=== PATIENT | female | born 1970 | race Hispanic/Latino ===

== ENCOUNTER 2017-11-09 16:03 | Inpatient (IN) | payer MEDICAID ==
[2017-11-09 16:03] VITALS: BMI 24.1
--- NOTE | 2017-11-09 16:20 | C.PDOC ---
History Of Present Illness 47 y/o female, w/PMhx of myasthenia gravis, s/p thymectomy, presents to the ER complaining of worsening SOB. Patient states that she had an IVIG infusion today and she has been sent to the ER by her PMD. Denies having fever, chest pain. Time Seen by Provider: 11/09/17 16:17 Chief Complaint (Nursing): Shortness Of Breath History Per: Patient History/Exam Limitations: no limitations Onset/Duration Of Symptoms: Days Current Symptoms Are (Timing): Still Present Severity: Moderate Past Medical History Reviewed: Historical Data, Nursing Documentation, Vital Signs Vital Signs: Last Vital Signs Temp 98.2 F 11/12/17 04:00 Pulse 65 11/12/17 07:59 Resp 22 11/12/17 07:59 BP 141/84 11/12/17 07:59 Pulse Ox 96 11/12/17 06:58 - Medical History PMH: Anxiety, Asthma, Depression Denies: Chronic Kidney Disease Surgical History: Appendectomy Denies: Pacemaker - [facility] Procedures FALLOP TUBE REPAIR NEC (08/24/03) FALLOPIAN TUBE INSUFFLAT (08/24/03) LAPAROSCOP LYSIS-PERITONEAL ADHES (08/24/03) Family History: States: No Known Family Hx - Social History Hx Alcohol Use: No Hx Substance Use: No - Immunization History Hx Tetanus Toxoid Vaccination: No Hx Influenza Vaccination: No Hx Pneumococcal Vaccination: No Review Of Systems Except As Marked, All Systems Reviewed And Found Negative. Constitutional: Negative for: Fever, Chills Respiratory: Positive for: Shortness of Breath Physical Exam - Physical Exam Appears: Non-toxic, No Acute Distress Skin: Normal Color, Warm, Dry Head: Atraumatic, Normacephalic Eye(s): bilateral: Normal Inspection Nose: Normal Oral Mucosa: Moist Neck: Supple Chest: Symmetrical Cardiovascular: Rhythm Regular Respiratory: Rales (mild rales at right base), No Rhonchi, No Wheezing, Other ( tachypnic, 6-8 word sentences) Gastrointestinal/Abdominal: Normal Exam, Soft, No Tenderness Neurological/Psych: Oriented x3 ED Course And Treatment - Laboratory Results Result Diagrams: 11/12/17 06:27 11/12/17 06:28 ECG: Interpreted By Me, Viewed By Me ECG Rhythm: Sinus Tachycardia Rate From EC O2 Sat by Pulse Oximetry: 96 (RA) Pulse Ox Interpretation: Normal Critical Care Time - Critical Care Note Total Time (in mins): 45 Documented critical care: time excludes all time spent performing seperately billable procedures. Medical Decision Making Medical Decision Making: suspect mg criis r/o undelrying etology. Plan: --Labs --ECG --CXR Updates: upona rrival, pt appears to be in mg crisis, with ptyosis, visible muscle weakness. fvc measured 0.7. respiratory unable to get nif bedside. pt intubated for impending resp failure. icu jessa bedside. antibiotics ordered, dr christianson accepts. dr gregory updated. Patient has been intubated. after etomidate , pt needed paralytic as orophaynx tense, zo given. Disposition - Disposition Disposition: HOSPITALIZED Disposition Time: 03:00 Condition: CRITICAL - Clinical Impression Clinical Impression: Myasthenia gravis in crisis, Respiratory distress - Scribe Statement The provider has reviewed the documentation as recorded by the Casey Lyle Provider Attestation: All medical record entries made by the Fernandaibmary were at my direction and personally dictated by me. I have reviewed the chart and agree that the record accurately reflects my personal performance of the history, physical exam, medical decision making, and the department course for this patient. I have also personally directed, reviewed, and agree with the discharge instructions and disposition.
[2017-11-09 16:29] LABS: BASO % 0.1 % (0.0-2.0); EOS % 0.6 % (0.0-4.0); HEMOGLOBIN 12.7 g/dL (11.0-16.0); LYMPH # 0.3 K/uL (1.0-4.3); LYMPH % 3.2 % (20.0-40.0); MEAN CELL VOLUME 88.6 fL (81.0-99.0); MEAN CORPUSCULAR HEMOGLOBIN 29.6 pg (27.0-31.0); MEAN CORPUSCULAR HGB CONC 33.5 g/dL (33.0-37.0); MEAN PLATELET VOLUME 6.7 fL (7.2-11.7); MONO # 0.1 K/uL (0.0-0.8); MONO % 0.8 % (0.0-10.0); NEUT # 7.4 K/uL (1.8-7.0); NEUT % 95.3 % (50.0-75.0); PLATELET COUNT 423 K/uL (130-400); RED CELL DISTRIBUTION WIDTH 13.2 % (11.5-14.5); WHITE BLOOD COUNT 7.8 K/uL (4.8-10.8)
[2017-11-09 16:37] LABS: INR 1.1; PROTHROMBIN TIME 12.3 SECONDS (9.7-12.2)
[2017-11-09 16:40] LABS: ALB/GLOB RATIO 0.7 (1.0-2.1); ALBUMIN 3.9 g/dL (3.5-5.0); ALT/SGPT 8 U/L (9-52); AST/SGOT 26 U/L (14-36); BLOOD UREA NITROGEN 16 mg/dL (7-17); CALCIUM 8.8 mg/dl (8.6-10.4); GFR AFRICAN-AMERICAN > 60; GFR NON-AFRICAN AMERICAN > 60
[2017-11-09 16:52] LABS: B-TYPE NATRIURETIC PEPTIDE 49.8 pg/mL (0-450)
[2017-11-09 17:03] LABS: BANDS 7 % (0-2); EOSINOPHIL 1 % (0-4); LYMPHOCYTE 1 % (20-40); MONOCYTE 2 % (0-10); NEUTROPHIL 89 % (50-75); TOTAL CELLS COUNTED 100
[2017-11-09] MEDS ORDERED: Propofol 10 mg/ml 1,000 MG/100 ML VIAL IV PRN (17:03)
[2017-11-09 17:04] LABS: PLATELET ESTIMATE SLIGHTLY INCREASED (NORMAL)
[2017-11-09] MEDS ORDERED: Propofol 10 mg/ml 1,000 MG/100 ML VIAL ONE (17:06)
[2017-11-09 17:08] LABS: HYPOCHROMIC SLIGHT; MICROCYTOSIS SLIGHT
[2017-11-09] MEDS ORDERED: Vancomycin 1 gm/NS 200 ml 1 GM/200 ML BAG IVPB STA ×2 (17:37→21:00)
[2017-11-09] MEDS ORDERED: metroNIDAZOLE IV 500 mg/100 ml 500 MG/100 ML BAG IVPB STA (17:37)
[2017-11-09] MEDS ORDERED: Ciprofloxacin 400mg/200ml D5W 400 MG/200 ML BAG IVPB STA (17:37)
[2017-11-09 17:45] LABS: ABG ALLEN TEST POS; ARTERIAL BLOOD GAS HCO3 23.7 mmol/L (21-28); ARTERIAL BLOOD GAS PCO2 45 mm/Hg (35-45); ARTERIAL BLOOD GAS PH 7.34 (7.35-7.45); ARTERIAL BLOOD GAS PO2 306 mm/Hg (80-100); ARTERIAL BLOOD GAS TCO2 25.7 mmol/L (22-28)
[2017-11-09 18:13] LABS: SQUAMOUS EPITHIAL < 1 /hpf (0-5); URINE BACTERIA OCC (<OCC); URINE BILIRUBIN NEGATIVE (NEGATIVE); URINE BLOOD 1+ (NEGATIVE); URINE CLARITY Clear (Clear); URINE COLOR Yellow (YELLOW); URINE GLUCOSE (UA) NORMAL (Normal); URINE HYALINE CAST 0-2 /lpf (0-2); URINE LEUKOCYTE ESTERASE NEG Leu/uL (Negative); URINE PROTEIN 1+ mg/dL (NEGATIVE); URINE UROBILINOGEN NORMAL mg/dL (0.2-1.0)
--- NOTE | 2017-11-09 18:14 | CP.PCM.CON ---
<Shabbir Ryan - Last Filed: 11/09/17 17:54> History of Present Illness - History of Present Illness History of Present Illness: Critical Care Consult Note for Dr. Crespo This is a 47 year old female with PMHx Asthma, Thymoma s/p resection 6 weeks ago , myasthenia gravis (started after thymoma resection) who presented to the hospital sent in by Dr. Branch for shortness of breath. Patient had received dose of IVIG, and patient was feeling increasingly weak and short of breath. Per review of EMR, she has had recurrent pleural effusions since her surgery. She has had 3 thoracentesis procedures thus far. Patient seen in the ED in respiratory distress with tachypnea and labored breathing. Patient was intubated in the ED and sedated on Diprivan. PMHx: Asthma, Thymoma s/p resection 6 weeks ago, myasthenia gravis (started after thymoma resection) PSHx: Thymoma resection 6 weeks ago, thoracentesis x3 since then Allergies: Multiple as per EMR Review of Systems - Review of Systems Systems not reviewed;Unavailable: Acuity of Condition, Respiratory Distress Past Patient History - Infectious Disease Hx of Infectious Diseases: None - Tetanus Immunizations Tetanus Immunization: Unknown - Past Social History Smoking Status: Never Smoked - CARDIAC Hx Pacemaker: No - PULMONARY Hx Asthma: Yes - NEUROLOGICAL Hx Neurological Disorder: No - HEENT Hx HEENT Problems: No - RENAL Hx Chronic Kidney Disease: No - ENDOCRINE/METABOLIC Hx Endocrine Disorders: No - HEMATOLOGICAL/ONCOLOGICAL Hx Blood Disorders: No - INTEGUMENTARY Hx Dermatological Problems: No - MUSCULOSKELETAL/RHEUMATOLOGICAL Hx Musculoskeletal Disorders: No Hx Myasthenia Gravis: Yes - GASTROINTESTINAL Hx Gastrointestinal Disorders: No - GENITOURINARY/GYNECOLOGICAL Hx Genitourinary Disorders: No - PSYCHIATRIC Hx Anxiety: Yes Hx Depression: Yes Hx Substance Use: No - SURGICAL HISTORY Hx Appendectomy: Yes - ANESTHESIA Hx Anesthesia: Yes Hx Anesthesia Reactions: Yes (TROUBLE WAKING) Hx Malignant Hyperthermia: No Meds Allergies/Adverse Reactions: Allergies Allergy/AdvReac Type Severity Reaction Status Date / Time cephalexin [From Keflex] Allergy Severe RASH Verified 11/01/17 20:57 codeine Allergy Severe RASH/SOB Verified 11/01/17 20:57 Iodine and Iodide Containing Allergy Severe ANAPHYLAXIS Verified 11/01/17 20:57 Produc latex Allergy Severe ANAPHYLAXIS Verified 11/01/17 20:57 peanut Allergy Severe ANAPHYLAXIS Verified 11/01/17 20:57 Penicillins Allergy Severe RASH/SOB Verified 11/01/17 20:57 shellfish derived Allergy ANAPHYLAXIS Verified 11/01/17 20:57 - Medications Medications: Current Medications Heparin Sodium (Porcine) (Heparin) 5,000 units SC Q12H D[facility] Propofol (Diprivan) 1,000 mg in 100 mls @ 4.8 mls/hr IV .[id number] PRN; Protocol ; 10 MCG/KG/MIN PRN Reason: TITRATE PER MD ORDER Last Admin: 11/09/17 17:10 Dose: 4.8 mls/hr Ciprofloxacin (Cipro 400mg/200ml Dsw) 400 mg in 200 mls @ 133 mls/hr IVPB STAT STA PRN Reason: Protocol Stop: 11/09/17 19:07 Metronidazole (Flagyl) 500 mg in 100 mls @ 100 mls/hr IVPB STAT STA PRN Reason: Protocol Stop: 11/09/17 18:36 Vancomycin/Sodium Chloride (Vancomycin 1 Gm/Ns 200 Ml) 1 gm in 200 mls @ 133 mls/hr IVPB STAT STA PRN Reason: Protocol Stop: 11/09/17 19:07 Methylprednisolone (Solu-Medrol) 125 mg IV Q8H DIONICIO Last Admin: 11/09/17 17:17 Dose: 125 mg Pantoprazole Sodium (Protonix Inj) 40 mg IVP DAILY [facility] Pyridostigmine [place] (Mestinon Tab) 60 mg PO Q8H DIONICIO Last Admin: 11/09/17 17:14 Dose: Not Given Physical Exam - Constitutional Appears: In Acute Distress - Head Exam Head Exam: ATRAUMATIC, NORMOCEPHALIC - Eye Exam Eye Exam: EOMI, PERRL - ENT Exam ENT Exam: Mucous Membranes Moist Additional comments: ETT in place - Respiratory Exam Respiratory Exam: Rales. absent: Rhonchi, Wheezes Additional comments: Now vented - Cardiovascular Exam Cardiovascular Exam: Tachycardia, +S1, +S2 - GI/Abdominal Exam GI & Abdominal Exam: Normal Bowel Sounds, Soft. absent: Distended, Tenderness - Extremities Exam Extremities exam: Negative for: pedal edema - Neurological Exam Additional comments: Sedated on diprivan - Skin Skin Exam: Dry, Warm Results - Vital Signs Recent Vital Signs: Last Vital Signs Temp 98.6 F 11/09/17 16:18 Pulse 127 H 11/09/17 16:52 Resp 38 H 11/09/17 16:52 BP 136/84 11/09/17 16:52 Pulse Ox 96 11/09/17 17:45 - Labs Result Diagrams: 11/09/17 16:25 11/09/17 16:25 Labs: Laboratory Results - last 24 hr 11/09/17 11/09/17 11/09/17 16:25 16:25 16:25 WBC 7.8 RBC 4.30 Hgb 12.7 Hct 38.1 MCV 88.6 MCH 29.6 MCHC 33.5 RDW 13.2 Plt Count 423 H MPV 6.7 L Neut % (Auto) 95.3 H Lymph % (Auto) 3.2 L [place] % (Auto) 0.8 Eos % (Auto) 0.6 Baso % (Auto) 0.1 Neut # (Auto) 7.4 H Lymph # (Auto) 0.3 L [place] # (Auto) 0.1 Eos # (Auto) 0.0 Baso # (Auto) 0.0 Neutrophils % (Manual) 89 H Band Neutrophils % 7 H Lymphocytes % (Manual) 1 L Monocytes % (Manual) 2 Eosinophils % (Manual) 1 Platelet Estimate Slightly increased H Hypochromasia (manual) Slight Microcytosis (manual) Slight PT 12.3 H INR 1.1 APTT 27 Puncture Site pCO2 pO2 HCO3 ABG pH ABG Total CO2 ABG O2 Saturation ABG Base Excess [place] Test ABG Potassium A-a O2 Difference Respiratory Index Glucose Lactate Vent Mode Mechanical Rate FiO2 Tidal Volume PEEP Sodium 141 Potassium 3.5 L Chloride 106 Carbon Dioxide 23 Anion Gap 16 BUN 16 Creatinine 0.7 Est GFR ( Amer) > 60 Est GFR (Non-Af Amer) > 60 Random Glucose 118 H Calcium 8.8 Total Bilirubin 1.1 AST 26 ALT 8 L Alkaline Phosphatase 65 Troponin I < 0.0120 NT-Pro-B Natriuret Pep 49.8 Total Protein 9.8 H Albumin 3.9 Globulin 5.8 H Albumin/Globulin Ratio 0.7 L Arterial Blood Potassium 11/09/17 17:40 WBC RBC Hgb Hct MCV MCH MCHC RDW Plt Count MPV Neut % (Auto) Lymph % (Auto) [place] % (Auto) Eos % (Auto) Baso % (Auto) Neut # (Auto) Lymph # (Auto) [place] # (Auto) Eos # (Auto) Baso # (Auto) Neutrophils % (Manual) Band Neutrophils % Lymphocytes % (Manual) Monocytes % (Manual) Eosinophils % (Manual) Platelet Estimate Hypochromasia (manual) Microcytosis (manual) PT INR APTT Puncture Site Rra pCO2 45 pO2 306 H HCO3 23.7 ABG pH 7.34 L ABG Total CO2 25.7 ABG O2 Saturation 100.0 H ABG Base Excess -1.7 Gianni Test Pos ABG Potassium 3.0 L A-a O2 Difference 351.0 Respiratory Index 1.1 Glucose 133 H Lactate 2.0 Vent Mode Prvc Mechanical Rate 16 FiO2 100.0 Tidal Volume 450 PEEP 5 Sodium 138.0 Potassium Chloride 108.0 H Carbon Dioxide Anion Gap BUN Creatinine Est GFR ( Amer) Est GFR (Non-Af Amer) Random Glucose Calcium Total Bilirubin AST ALT Alkaline Phosphatase Troponin I NT-Pro-B Natriuret Pep Total Protein Albumin Globulin Albumin/Globulin Ratio Arterial Blood Potassium 3.0 L Assessment & Plan - Assessment and Plan (Free Text) Assessment: This is a 47 year old female with PMHx Asthma, Thymoma s/p resection 6 weeks ago , myasthenia gravis (started after thymoma resection) who presented to the hospital sent in by Dr. Branch for shortness of breath. Patient diagnosed to be in myasthenia crisis and was subsequently intubated. In the ICU, she had some seizure-like activity. She was given a bolus of Diprivan and 2 mg of Ativan which resolved this. Neuro Assessment: Myasthenia Crisis Intubated and sedated on diprivan Already received IVIG today in the office Solumedrol 125 mg IV Q8H Pyridostigmine 60 mg PO Q8H Patient may need plasmapheresis Cardio No active issues Pulm Assessment: Hx of Asthma, Recurrent pleural effusions Albuterol 1.25 mg Nebulizer Q6H DIONICIO GI Protonix 40 mg IV daily Infectious Disease Given Cipro, Flagyl, and Vancomycin in the ED Prophylaxis Heparin SC Q12H Protonix 40 mg IV daily Discussed with Dr. Crespo <Abdifatah Crespo - Last Filed: 11/09/17 18:56> Meds - Medications Medications: Current Medications Albuterol Sulfate (Albuterol 0.042% Inhal [place] (1.25mg/3ml) Ud) 1.25 mg INH RQ6 DIONICIO Heparin Sodium (Porcine) (Heparin) 5,000 units SC Q12H DION[facility] Propofol (Diprivan) 1,000 mg in 100 mls @ 4.8 mls/hr IV .[id number] PRN; Protocol ; 10 MCG/KG/MIN PRN Reason: TITRATE PER MD ORDER Last Admin: 11/09/17 17:10 Dose: 4.8 mls/hr Ciprofloxacin (Cipro 400mg/200ml Dsw) 400 mg in 200 mls @ 133 mls/hr IVPB STAT STA PRN Reason: Protocol Stop: 11/09/17 19:07 Vancomycin/Sodium Chloride (Vancomycin 1 Gm/Ns 200 Ml) 1 gm in 200 mls @ 133 mls/hr IVPB STAT STA PRN Reason: Protocol Stop: 11/09/17 19:07 Methylprednisolone (Solu-Medrol) 125 mg IV Q8H [facility] Last Admin: 11/09/17 17:17 Dose: 125 mg Pantoprazole Sodium (Protonix Inj) 40 mg IVP DAILY [facility] Pyridostigmine [place] (Mestinon Tab) 60 mg PO Q8H [facility] Last Admin: 11/09/17 17:14 Dose: Not Given Results - Vital Signs Recent Vital Signs: Last Vital Signs Temp 98.6 F 11/09/17 16:18 Pulse 118 H 11/09/17 17:49 Resp 16 11/09/17 17:49 BP 158/96 H 11/09/17 17:49 Pulse Ox 96 11/09/17 18:24 - Labs Result Diagrams: 11/09/17 16:25 11/09/17 16:25 Labs: Laboratory Results - last 24 hr 11/09/17 11/09/17 11/09/17 16:25 16:25 16:25 WBC 7.8 RBC 4.30 Hgb 12.7 Hct 38.1 MCV 88.6 MCH 29.6 MCHC 33.5 RDW 13.2 Plt Count 423 H MPV 6.7 L Neut % (Auto) 95.3 H Lymph % (Auto) 3.2 L [place] % (Auto) 0.8 Eos % (Auto) 0.6 Baso % (Auto) 0.1 Neut # (Auto) 7.4 H Lymph # (Auto) 0.3 L [place] # (Auto) 0.1 Eos # (Auto) 0.0 Baso # (Auto) 0.0 Neutrophils % (Manual) 89 H Band Neutrophils % 7 H Lymphocytes % (Manual) 1 L Monocytes % (Manual) 2 Eosinophils % (Manual) 1 Platelet Estimate Slightly increased H Hypochromasia (manual) Slight Microcytosis (manual) Slight PT 12.3 H INR 1.1 APTT 27 Puncture Site pCO2 pO2 HCO3 ABG pH ABG Total CO2 ABG O2 Saturation ABG Base Excess Gianni Test ABG Potassium A-a O2 Difference Respiratory Index Glucose Lactate Vent Mode Mechanical Rate FiO2 Tidal Volume PEEP Sodium 141 Potassium 3.5 L Chloride 106 Carbon Dioxide 23 Anion Gap 16 BUN 16 Creatinine 0.7 Est GFR ( Amer) > 60 Est GFR (Non-Af Amer) > 60 Random Glucose 118 H Calcium 8.8 Total Bilirubin 1.1 AST 26 ALT 8 L Alkaline Phosphatase 65 Troponin I < 0.0120 NT-Pro-B Natriuret Pep 49.8 Total Protein 9.8 H Albumin 3.9 Globulin 5.8 H Albumin/Globulin Ratio 0.7 L Arterial Blood Potassium Urine Color Urine Clarity Urine pH Ur Specific [place] Urine Protein Urine Glucose (UA) Urine Ketones Urine Blood Urine Nitrate Urine Bilirubin Urine Urobilinogen Ur Leukocyte Esterase Urine WBC (Auto) Urine RBC (Auto) Ur Squamous Epith Cells Urine Bacteria Hyaline Casts 11/09/17 11/09/17 17:35 17:40 WBC RBC Hgb Hct MCV MCH MCHC RDW Plt Count MPV Neut % (Auto) Lymph % (Auto) [place] % (Auto) Eos % (Auto) Baso % (Auto) Neut # (Auto) Lymph # (Auto) [place] # (Auto) Eos # (Auto) Baso # (Auto) Neutrophils % (Manual) Band Neutrophils % Lymphocytes % (Manual) Monocytes % (Manual) Eosinophils % (Manual) Platelet Estimate Hypochromasia (manual) Microcytosis (manual) PT INR APTT Puncture Site Rra pCO2 45 pO2 306 H HCO3 23.7 ABG pH 7.34 L ABG Total CO2 25.7 ABG O2 Saturation 100.0 H ABG Base Excess -1.7 Gianni Test Pos ABG Potassium 3.0 L A-a O2 Difference 351.0 Respiratory Index 1.1 Glucose 133 H Lactate 2.0 Vent Mode Prvc Mechanical Rate 16 FiO2 100.0 Tidal Volume 450 PEEP 5 Sodium 138.0 Potassium Chloride 108.0 H Carbon Dioxide Anion Gap BUN Creatinine Est GFR ( Amer) Est GFR (Non-Af Amer) Random Glucose Calcium Total Bilirubin AST ALT Alkaline Phosphatase Troponin I NT-Pro-B Natriuret Pep Total Protein Albumin Globulin Albumin/Globulin Ratio Arterial Blood Potassium 3.0 L Urine Color Yellow Urine Clarity Clear Urine pH 5.0 Ur Specific [place] 1.015 Urine Protein 1+ H Urine Glucose (UA) Normal Urine Ketones Negative Urine Blood 1+ H Urine Nitrate Negative Urine Bilirubin Negative Urine Urobilinogen Normal Ur Leukocyte Esterase Neg Urine WBC (Auto) 4 Urine RBC (Auto) 7 H Ur Squamous Epith Cells < 1 Urine Bacteria Occ H Hyaline Casts 0-2 Attending/Attestation - Attestation I have personally seen and examined this patient.: Yes I have fully participated in the care of the patient.: Yes I have reviewed all pertinent clinical information: Yes Notes (Text): 11/09/17 18:54 Patient seen and examined 47-year-old female recently diagnosed with myasthenia gravis, admitted with shortness of breath Intubated in the emergency room with extremely low vital capacity and tachypneic now on ventilatory support, sedated on Diprivan Started on IV steroids and Mestinon Continue IgG Patient was seen by neurology in his office today and received 1 dose of IgG Consider CAT scan of the head
--- NOTE | 2017-11-09 19:16 | CP.PCM.HP ---
History of Present Illness - History of Present Illness History of Present Illness: Chief complaint: Respiratory distress History present illness: 47-year-old female with history of asthma, recently underwent a thymectomy 6 weeks ago, and also recently diagnosed with myasthenia gravis, today while she was in neurologist office she was complaining of some shortness of breath. Patient was getting Mestinon and a daily basis, she was getting her first dose of intravenous immunoglobulin, but after that she started feeling increasingly weak and shortness of breath, and she was sent to the emergency room by neurologist. In the emergency room while she was being evaluated by the ER doctor, had respirated status got worse, she was not able to complete a sentence. She was having increasing SOB. Become more labored breathing and tachypneic, and needed intubation. Patient was intubated by the emergency room doctor, and placed on sedation. Patient was transferred to intensive care unit. Past medical history: Bronchial asthma, thymoma recent thymectomy, recently diagnosed myasthenia gravis. Surgical history includes thymectomy 6 weeks ago and the thoracentesis. Allergy patient has a multiple allergies as noted in the chart. Personal history: Nonsmoker nonalcoholic. Most of the history taken from the chart. Family history noncontributory. Review of systems: Patient is currently intubated, sedated, nonverbal. Chest bilateral good air entry, no wheezing noted regular heart sound nontender abdomen, no pedal edema On examination: HEENT PERRLA, neck supple No thyromegaly was noted and no cervical adenopathy noted Chest bilateral good air entry, no wheezing or rales noted CVS regular heart sound, no murmur Abdomen soft and no organomegaly Extremities no pedal edema, no leg swelling, pedal pulses are good. Sedated. Labs nonspecific. X-ray ET tube in good position. Minimal basal atelectasis, right lung minimal effusion noted. Blood gas analysis showing evidence of some AA gradient. Assessment/recommendation: 47-year-old female with history of bronchial asthma, thymectomy recently done, admitted now with acute respiratory insufficiency. Most likely related to myasthenia gravis exacerbation. Spoke to the neurologist. Patient will need immunoglobulins, possible plasmapheresis, and corticosteroid, Mestinon. Patient will need DVT prophylaxis, GI prophylaxis. Supportive ventilation. Will follow the patient. Close ICU monitoring. Patient will need a possible empirical antibiotic. Present on Admission - Present on Admission Any Indicators Present on Admission: No History of DVT/PE: No History of Uncontrolled Diabetes: No Urinary Catheter: No Decubitus Ulcer Present: No Past Patient History - Infectious Disease Hx of Infectious Diseases: None - Tetanus Immunizations Tetanus Immunization: Unknown - Past Social History Smoking Status: Never Smoked - CARDIAC Hx Pacemaker: No - PULMONARY Hx Asthma: Yes - NEUROLOGICAL Hx Neurological Disorder: No - HEENT Hx HEENT Problems: No - RENAL Hx Chronic Kidney Disease: No - ENDOCRINE/METABOLIC Hx Endocrine Disorders: No - HEMATOLOGICAL/ONCOLOGICAL Hx Blood Disorders: No - INTEGUMENTARY Hx Dermatological Problems: No - MUSCULOSKELETAL/RHEUMATOLOGICAL Hx Musculoskeletal Disorders: No Hx Myasthenia Gravis: Yes - GASTROINTESTINAL Hx Gastrointestinal Disorders: No - GENITOURINARY/GYNECOLOGICAL Hx Genitourinary Disorders: No - PSYCHIATRIC Hx Anxiety: Yes Hx Depression: Yes Hx Substance Use: No - SURGICAL HISTORY Hx Appendectomy: Yes - ANESTHESIA Hx Anesthesia: Yes Hx Anesthesia Reactions: Yes (TROUBLE WAKING) Hx Malignant Hyperthermia: No Meds Allergies/Adverse Reactions: Allergies Allergy/AdvReac Type Severity Reaction Status Date / Time cephalexin [From Keflex] Allergy Severe RASH Verified 11/01/17 20:57 codeine Allergy Severe RASH/SOB Verified 11/01/17 20:57 Iodine and Iodide Containing Allergy Severe ANAPHYLAXIS Verified 11/01/17 20:57 Produc latex Allergy Severe ANAPHYLAXIS Verified 11/01/17 20:57 peanut Allergy Severe ANAPHYLAXIS Verified 11/01/17 20:57 Penicillins Allergy Severe RASH/SOB Verified 11/01/17 20:57 shellfish derived Allergy ANAPHYLAXIS Verified 11/01/17 20:57 Results - Vital Signs Recent Vital Signs: Last Vital Signs Temp 98.6 F 11/09/17 16:18 Pulse 118 H 11/09/17 17:49 Resp 16 11/09/17 17:49 BP 158/96 H 11/09/17 17:49 Pulse Ox 96 11/09/17 18:24 - Labs Result Diagrams: 11/09/17 16:25 11/09/17 16:25 Labs: Laboratory Results - last 24 hr 11/09/17 11/09/17 11/09/17 16:25 16:25 16:25 WBC 7.8 RBC 4.30 Hgb 12.7 Hct 38.1 MCV 88.6 MCH 29.6 MCHC 33.5 RDW 13.2 Plt Count 423 H MPV 6.7 L Neut % (Auto) 95.3 H Lymph % (Auto) 3.2 L [place] % (Auto) 0.8 Eos % (Auto) 0.6 Baso % (Auto) 0.1 Neut # (Auto) 7.4 H Lymph # (Auto) 0.3 L [place] # (Auto) 0.1 Eos # (Auto) 0.0 Baso # (Auto) 0.0 Neutrophils % (Manual) 89 H Band Neutrophils % 7 H Lymphocytes % (Manual) 1 L Monocytes % (Manual) 2 Eosinophils % (Manual) 1 Platelet Estimate Slightly increased H Hypochromasia (manual) Slight Microcytosis (manual) Slight PT 12.3 H INR 1.1 APTT 27 Puncture Site pCO2 pO2 HCO3 ABG pH ABG Total CO2 ABG O2 Saturation ABG Base Excess Gianni Test ABG Potassium A-a O2 Difference Respiratory Index Glucose Lactate Vent Mode Mechanical Rate FiO2 Tidal Volume PEEP Sodium 141 Potassium 3.5 L Chloride 106 Carbon Dioxide 23 Anion Gap 16 BUN 16 Creatinine 0.7 Est GFR ( Amer) > 60 Est GFR (Non-Af Amer) > 60 Random Glucose 118 H Calcium 8.8 Total Bilirubin 1.1 AST 26 ALT 8 L Alkaline Phosphatase 65 Troponin I < 0.0120 NT-Pro-B Natriuret Pep 49.8 Total Protein 9.8 H Albumin 3.9 Globulin 5.8 H Albumin/Globulin Ratio 0.7 L Arterial Blood Potassium Urine Color Urine Clarity Urine pH Ur Specific [place] Urine Protein Urine Glucose (UA) Urine Ketones Urine Blood Urine Nitrate Urine Bilirubin Urine Urobilinogen Ur Leukocyte Esterase Urine WBC (Auto) Urine RBC (Auto) Ur Squamous Epith Cells Urine Bacteria Hyaline Casts 11/09/17 11/09/17 17:35 17:40 WBC RBC Hgb Hct MCV MCH MCHC RDW Plt Count MPV Neut % (Auto) Lymph % (Auto) [place] % (Auto) Eos % (Auto) Baso % (Auto) Neut # (Auto) Lymph # (Auto) [place] # (Auto) Eos # (Auto) Baso # (Auto) Neutrophils % (Manual) Band Neutrophils % Lymphocytes % (Manual) Monocytes % (Manual) Eosinophils % (Manual) Platelet Estimate Hypochromasia (manual) Microcytosis (manual) PT INR APTT Puncture Site Rra pCO2 45 pO2 306 H HCO3 23.7 ABG pH 7.34 L ABG Total CO2 25.7 ABG O2 Saturation 100.0 H ABG Base Excess -1.7 Gianni Test Pos ABG Potassium 3.0 L A-a O2 Difference 351.0 Respiratory Index 1.1 Glucose 133 H Lactate 2.0 Vent Mode Prvc Mechanical Rate 16 FiO2 100.0 Tidal Volume 450 PEEP 5 Sodium 138.0 Potassium Chloride 108.0 H Carbon Dioxide Anion Gap BUN Creatinine Est GFR ( Amer) Est GFR (Non-Af Amer) Random Glucose Calcium Total Bilirubin AST ALT Alkaline Phosphatase Troponin I NT-Pro-B Natriuret Pep Total Protein Albumin Globulin Albumin/Globulin Ratio Arterial Blood Potassium 3.0 L Urine Color Yellow Urine Clarity Clear Urine pH 5.0 Ur Specific [place] 1.015 Urine Protein 1+ H Urine Glucose (UA) Normal Urine Ketones Negative Urine Blood 1+ H Urine Nitrate Negative Urine Bilirubin Negative Urine Urobilinogen Normal Ur Leukocyte Esterase Neg Urine WBC (Auto) 4 Urine RBC (Auto) 7 H Ur Squamous Epith Cells < 1 Urine Bacteria Occ H Hyaline Casts 0-2 Assessment & Plan (1) Myasthenia exacerbation Status: Acute Onset Date: ~11/09/17 (2) Acute respiratory failure with hypercapnia Status: Acute (3) Acute respiratory failure requiring reintubation Status: Acute Onset Date: ~11/09/17 (4) Myasthenia gravis status post thymectomy Status: Chronic Priority: High Onset Date: ~09/27/17
--- NOTE | 2017-11-09 19:33 | CP.PCM.CON ---
History of Present Illness - History of Present Illness History of Present Illness: CONSULT DICTATED NEWLY DIAGNOSED MYASTHENIA GRAVIS S/P THYMECTOMY FOLLOWING FIRST IVIG THERAPY DEVELOPED RESIRATORY [facility] ADVISED TO BE HOSPITALIZED FOR POSSIBLE MYASTENIC CRISIS CONT IVIG 0.4 GM PER KG X 4 DAYS CONTINUE MESTINON AND STEROIDS CASE DISCUSSED WITH SR. PAYROLL PROCESSOR AND RESIDENT Past Patient History - Infectious Disease Hx of Infectious Diseases: None - Tetanus Immunizations Tetanus Immunization: Unknown - Past Social History Smoking Status: Never Smoked - CARDIAC Hx Pacemaker: No - PULMONARY Hx Asthma: Yes - NEUROLOGICAL Hx Neurological Disorder: No - HEENT Hx HEENT Problems: No - RENAL Hx Chronic Kidney Disease: No - ENDOCRINE/METABOLIC Hx Endocrine Disorders: No - HEMATOLOGICAL/ONCOLOGICAL Hx Blood Disorders: No - INTEGUMENTARY Hx Dermatological Problems: No - MUSCULOSKELETAL/RHEUMATOLOGICAL Hx Musculoskeletal Disorders: No Hx Myasthenia Gravis: Yes - GASTROINTESTINAL Hx Gastrointestinal Disorders: No - GENITOURINARY/GYNECOLOGICAL Hx Genitourinary Disorders: No - PSYCHIATRIC Hx Anxiety: Yes Hx Depression: Yes Hx Substance Use: No - SURGICAL HISTORY Hx Appendectomy: Yes - ANESTHESIA Hx Anesthesia: Yes Hx Anesthesia Reactions: Yes (TROUBLE WAKING) Hx Malignant Hyperthermia: No Meds Allergies/Adverse Reactions: Allergies Allergy/AdvReac Type Severity Reaction Status Date / Time cephalexin [From Keflex] Allergy Severe RASH Verified 11/01/17 20:57 codeine Allergy Severe RASH/SOB Verified 11/01/17 20:57 Iodine and Iodide Containing Allergy Severe ANAPHYLAXIS Verified 11/01/17 20:57 Produc latex Allergy Severe ANAPHYLAXIS Verified 11/01/17 20:57 peanut Allergy Severe ANAPHYLAXIS Verified 11/01/17 20:57 Penicillins Allergy Severe RASH/SOB Verified 11/01/17 20:57 shellfish derived Allergy ANAPHYLAXIS Verified 11/01/17 20:57 - Medications Medications: Current Medications Heparin Sodium (Porcine) (Heparin) 5,000 units SC Q12H DIONICIO Propofol (Diprivan) 1,000 mg in 100 mls @ 4.8 mls/hr IV .[id number] PRN; Protocol ; 10 MCG/KG/MIN PRN Reason: TITRATE PER MD ORDER Last Admin: 11/09/17 17:10 Dose: 4.8 mls/hr Methylprednisolone (Solu-Medrol) 125 mg IV Q8H DIONICIO Last Admin: 11/09/17 17:17 Dose: 125 mg Pantoprazole Sodium (Protonix Inj) 40 mg IVP DAILY [facility] Pyridostigmine [place] (Mestinon Tab) 60 mg PO Q8H DIONICIO Last Admin: 11/09/17 17:14 Dose: Not Given Results - Vital Signs Recent Vital Signs: Last Vital Signs Temp 98.6 F 11/09/17 16:18 Pulse 118 H 11/09/17 17:49 Resp 16 11/09/17 17:49 BP 158/96 H 11/09/17 17:49 Pulse Ox 96 11/09/17 18:24 - Labs Result Diagrams: 11/09/17 16:25 11/09/17 16:25 Labs: Laboratory Results - last 24 hr 11/09/17 11/09/17 11/09/17 16:25 16:25 16:25 WBC 7.8 RBC 4.30 Hgb 12.7 Hct 38.1 MCV 88.6 MCH 29.6 MCHC 33.5 RDW 13.2 Plt Count 423 H MPV 6.7 L Neut % (Auto) 95.3 H Lymph % (Auto) 3.2 L [place] % (Auto) 0.8 Eos % (Auto) 0.6 Baso % (Auto) 0.1 Neut # (Auto) 7.4 H Lymph # (Auto) 0.3 L [place] # (Auto) 0.1 Eos # (Auto) 0.0 Baso # (Auto) 0.0 Neutrophils % (Manual) 89 H Band Neutrophils % 7 H Lymphocytes % (Manual) 1 L Monocytes % (Manual) 2 Eosinophils % (Manual) 1 Platelet Estimate Slightly increased H Hypochromasia (manual) Slight Microcytosis (manual) Slight PT 12.3 H INR 1.1 APTT 27 Puncture Site pCO2 pO2 HCO3 ABG pH ABG Total CO2 ABG O2 Saturation ABG Base Excess Gianni Test ABG Potassium A-a O2 Difference Respiratory Index Glucose Lactate Vent Mode Mechanical Rate FiO2 Tidal Volume PEEP Sodium 141 Potassium 3.5 L Chloride 106 Carbon Dioxide 23 Anion Gap 16 BUN 16 Creatinine 0.7 Est GFR ( Amer) > 60 Est GFR (Non-Af Amer) > 60 Random Glucose 118 H Calcium 8.8 Total Bilirubin 1.1 AST 26 ALT 8 L Alkaline Phosphatase 65 Troponin I < 0.0120 NT-Pro-B Natriuret Pep 49.8 Total Protein 9.8 H Albumin 3.9 Globulin 5.8 H Albumin/Globulin Ratio 0.7 L Arterial Blood Potassium Urine Color Urine Clarity Urine pH Ur Specific [place] Urine Protein Urine Glucose (UA) Urine Ketones Urine Blood Urine Nitrate Urine Bilirubin Urine Urobilinogen Ur Leukocyte Esterase Urine WBC (Auto) Urine RBC (Auto) Ur Squamous Epith Cells Urine Bacteria Hyaline Casts 11/09/17 11/09/17 17:35 17:40 WBC RBC Hgb Hct MCV MCH MCHC RDW Plt Count MPV Neut % (Auto) Lymph % (Auto) [place] % (Auto) Eos % (Auto) Baso % (Auto) Neut # (Auto) Lymph # (Auto) [place] # (Auto) Eos # (Auto) Baso # (Auto) Neutrophils % (Manual) Band Neutrophils % Lymphocytes % (Manual) Monocytes % (Manual) Eosinophils % (Manual) Platelet Estimate Hypochromasia (manual) Microcytosis (manual) PT INR APTT Puncture Site Rra pCO2 45 pO2 306 H HCO3 23.7 ABG pH 7.34 L ABG Total CO2 25.7 ABG O2 Saturation 100.0 H ABG Base Excess -1.7 Gianni Test Pos ABG Potassium 3.0 L A-a O2 Difference 351.0 Respiratory Index 1.1 Glucose 133 H Lactate 2.0 Vent Mode Prvc Mechanical Rate 16 FiO2 100.0 Tidal Volume 450 PEEP 5 Sodium 138.0 Potassium Chloride 108.0 H Carbon Dioxide Anion Gap BUN Creatinine Est GFR ( Amer) Est GFR (Non-Af Amer) Random Glucose Calcium Total Bilirubin AST ALT Alkaline Phosphatase Troponin I NT-Pro-B Natriuret Pep Total Protein Albumin Globulin Albumin/Globulin Ratio Arterial Blood Potassium 3.0 L Urine Color Yellow Urine Clarity Clear Urine pH 5.0 Ur Specific [place] 1.015 Urine Protein 1+ H Urine Glucose (UA) Normal Urine Ketones Negative Urine Blood 1+ H Urine Nitrate Negative Urine Bilirubin Negative Urine Urobilinogen Normal Ur Leukocyte Esterase Neg Urine WBC (Auto) 4 Urine RBC (Auto) 7 H Ur Squamous Epith Cells < 1 Urine Bacteria Occ H Hyaline Casts 0-2
[2017-11-09] MEDS ORDERED: Albuterol 0.042% Inhal Sol (1.25 mg/3 mL) UD INH SCH (20:00)
--- NOTE | 2017-11-09 21:04 | CT ---
EXAM: CT Head Without Intravenous Contrast EXAM DATE/TIME: 11/09/2017 8:00 PM CLINICAL HISTORY: 47 years old, female; Signs and symptoms; Syncope and collapse; Additional info: New onset seizure; intubated patient TECHNIQUE: Axial computed tomography images of the head/brain without intravenous contrast. All CT scans at this facility use one or more dose reduction techniques, viz.: automated exposure control; ma/kV adjustment per patient size (including targeted exams where dose is matched to indication; i.e. head); or iterative reconstruction technique. COMPARISON: There are no prior studies for comparison. FINDINGS: Brain and ventricles: Ventricles are normal in size and configuration. There is no midline shift. There are no intra-axial or extra-axial mass lesions or areas of hemorrhage. There are basal ganglia calcifications. There are no abnormal fluid collections. Mendoza-white differentiation is maintained. Bones: Cranial vault is intact. Soft tissues: unremarkable Sinuses: There is no acute sinusitis. 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 There is minimal mucoperiosteal thickening in the maxillary sinuses. Ears and mastoids: Middle ears and mastoids are unremarkable Orbits: Orbital contents are unremarkable. IMPRESSION: No acute intracranial abnormality
[2017-11-09] MEDS ORDERED: Potassium Chloride 20 mEq/15 ml LIQ UD PO STA (21:20)
[2017-11-09] MEDS: Dexmedetomidine Hydrochloride 200 MCG in Sodium Chloride 0.9% 48 ML IV PRN (22:11)
[2017-11-10] MEDS: Dexmedetomidine Hydrochloride 200 MCG in Sodium Chloride 0.9% 48 ML IV PRN ×2 (02:16→06:00)
--- NOTE | 2017-11-10 05:13 | CON ---
DATE: 11/09/2017 ATTENDING PHYSICIAN: Niles Ledezma MD REASON FOR CONSULTATION: Respiratory distress secondary to her myasthenia gravis. CHIEF COMPLAINT: The patient was sent to the hospital because of respiratory distress following immunoglobulin infusion at my office. Patient was found to be myasthenic crisis for further management. HISTORY OF PRESENTING ILLNESS: Ms. 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 Her initial examination and history, patient found to have possible clinical myasthenia gravis because of her history of longstanding exertional dyspnea. Because of clinical myasthenia gravis, patient was started on Mestinon from day #1 on my consultation and patient's blood workup was drawn for myasthenia gravis as well. The patient was scheduled to have thymectomy by thoracic surgeon at [place]. Following the thymectomy, the patient came to see me on 10/12/2017. At that time, the patient was stable. She denies any double vision; however, shortness of breath persistent. Considering her history of myasthenia gravis and therapeutic failure with Mestinon, the patient was suggested to have intravenous immunoglobulin. The patient was scheduled to have immunoglobulin at my office. During her infusion, the patient was periodically checked her vital signs every 15 minutes and documented. Her oxygenation was not dropped down during the end of the course of her intravenous immunoglobulin. Before finishing her course, the patient was found to be extremely lethargic and she was complaining of shortness of breath. Pulse ox was at that time close to 90 and vital signs were normal. Considering her clinical presentation, I advised her to be in the hospital for further management because of her impending respiratory failure. She agreed for for further management. 03-12- was called and the patient was transferred to [facility] for further evaluation. The patient found to have low oxygenation and severe respiratory distress. The patient was electively intubated. PAST MEDICAL HISTORY: Asthma, dyslipidemia. PERSONAL HISTORY: Denies smoking or alcohol use. ALLERGIES: CEPHALOSPORIN, IODINE, AND MORPHENATED COMPOUNDS. REVIEW OF SYSTEMS: A 12-point system being reviewed. From neuro, worsening respiratory status secondary to her myasthenia gravis. PHYSICAL EXAMINATION: VITAL SIGNS: Blood pressure 158/96, mean artery pressure 116, temperature afebrile, pulse rate 118, respiratory rate 16. The patient is sedated with propofol. The patient also given Ativan related to her twitching movement of her body. On examination, the patient's eyes are open. She had a contact lens. Pupils reactive to light. Corneal reflex present, poor gag. Motor exam muscles are weak, Responds to noxious stimuli. secondary to her sedation. Deep tendon reflexes were not elicited. Plantars are mute. On painful stimuli, patient responds as grimacing. LABORATORY DATA: The patient's workup in the hospital; WBC 7.8, hemoglobin 12.7, hematocrit 38.1, platelet 423. PT 12.3, INR 1.1, PTT 27. ABG; pH is 7.34, CO2 of 45, oxygen saturation was 100 with bicarbonate of 25.7. Sodium 141, potassium 3.5, chloride 103, bicarbonate 23, GFR more than 60, glucose 118, calcium 8.8, globulin 5.8, albumin 0.7, BNP 49.8. CONCLUSION: Ms. Ceci Mcghee has been presenting with respiratory distress and respiratory failure secondary to her underlying myasthenia gravis exacerbation . RECOMMENDATIONS: 1. Continue immunoglobulin 0.4 gm/kg for next 4 days. 2. IV steroids and Mestinon should be continued. The patient should have prophylactic antibiotic for her occult infection. The patient's condition has been discussed with assistant warehouse manager as well as resident. My office consultation and progress notes including a blood workup have been attached in the patient's file. Sam Branch MD NAM
[2017-11-10 05:54] LABS: ABG ALLEN TEST POS; ARTERIAL BLOOD GAS HCO3 22.1 mmol/L (21-28); ARTERIAL BLOOD GAS HEMOGLOBIN 12.8 g/dL (11.7-17.4); ARTERIAL BLOOD GAS O2 SAT 100.6 % (95-98); ARTERIAL BLOOD GAS PCO2 33 mm/Hg (35-45); ARTERIAL BLOOD GAS PO2 175 mm/Hg (80-100); ARTERIAL BLOOD GAS TCO2 21.4 mmol/L (22-28)
[2017-11-10 06:54] LABS: BASO % 0.2 % (0.0-2.0); LYMPH # 0.3 K/uL (1.0-4.3); LYMPH % 2.5 % (20.0-40.0); MEAN CELL VOLUME 87.6 fL (81.0-99.0); MEAN CORPUSCULAR HEMOGLOBIN 29.9 pg (27.0-31.0); MEAN CORPUSCULAR HGB CONC 34.1 g/dL (33.0-37.0); MEAN PLATELET VOLUME 6.9 fL (7.2-11.7); MONO # 0.1 K/uL (0.0-0.8); MONO % 0.9 % (0.0-10.0); NEUT # 10.1 K/uL (1.8-7.0); NEUT % 96.4 % (50.0-75.0); PLATELET COUNT 405 K/uL (130-400); RBC 4.02 Mil/uL (3.80-5.20); RED CELL DISTRIBUTION WIDTH 13.1 % (11.5-14.5); WHITE BLOOD COUNT 10.4 K/uL (4.8-10.8)
[2017-11-10 07:14] LABS: ALB/GLOB RATIO 0.7 (1.0-2.1); ALBUMIN 3.6 g/dL (3.5-5.0); ALT/SGPT < 6 U/L (9-52); AST/SGOT 34 U/L (14-36); BLOOD UREA NITROGEN 15 mg/dL (7-17); CALCIUM 9.3 mg/dl (8.6-10.4); GFR AFRICAN-AMERICAN > 60; GFR NON-AFRICAN AMERICAN > 60
[2017-11-10 08:18] LABS: LYMPHOCYTE 2 % (20-40); MONOCYTE 3 % (0-10); NEUTROPHIL 95 % (50-75); PLATELET ESTIMATE NORMAL (NORMAL); TOTAL CELLS COUNTED 100
[2017-11-10] MEDS ORDERED: Dexmedetomidine Hydrochloride 200 MCG in Sodium Chloride 0.9% 48 ML IV PRN (08:18)
--- NOTE | 2017-11-10 08:46 | RAD ---
PROCEDURE: CHEST RADIOGRAPH, 1 VIEW HISTORY: chest pain COMPARISON: None available. FINDINGS: LUNGS: Pulmonary vascular congestion. Right basilar atelectasis. Questionable patchy lingular infiltrate. PLEURA: Small right pleural effusion. No appreciable pneumothorax. CARDIOVASCULAR: Prior sternotomy with sternal wires and surgical clips in place. Cardiomediastinal silhouette prominent. OSSEOUS STRUCTURES: No significant abnormalities. VISUALIZED UPPER ABDOMEN: Normal. OTHER FINDINGS: Endotracheal tube with tip between the clavicles and kimberli. Calcified bilateral breast prostheses. IMPRESSION: Endotracheal tube in satisfactory position. Pulmonary vascular congestion with small right pleural effusion and associated atelectasis. Questionable lingular infiltrate.
--- NOTE | 2017-11-10 08:47 | CP.CCUPN ---
<Shabbir Ryan - Last Filed: 11/10/17 11:32> CCU Subjective - Physician Review Subjective (Free Text): 11/10/17 08:44 Patient seen and examined. Intubated and sedated, currently with Precedex. Patient overnight was intermittently agitated but improved after switching from Diprivan to Precedex and some Ativan was given as well. CCU Objective - Vital Signs / Intake & Output Vital Signs (Last 4 hours): Vital Signs Pulse Resp BP Pulse Ox 11/10/17 07:00 69 17 100 11/10/17 06:57 68 17 116/71 100 11/10/17 06:02 115/71 11/10/17 06:00 72 16 100 11/10/17 05:00 73 20 100 11/10/17 04:57 73 17 117/74 100 Intake and Output (Last 8hrs): Intake & Output 11/09/17 11/10/17 11/10/17 22:59 06:59 14:59 Intake Total 589.5 188 12 Output Total 235 340 40 Balance 354.5 -152 -28 Weight 176 lb 5.917 oz 141 lb 1.533 oz 141 lb 1.533 oz Intake: IV 40 100 Intake, IV Amount 549.5 88 12 Left Hand 500 Right Antecubital 49.5 88 12 Output: Urine 235 340 40 Urethral ([place]) 235 340 40 Other: # Bowel Movements 0 0 0 - Physical Exam Physical Exam Limitations: Positive for: Altered Mental Status Head: Positive for: Atraumatic, Normocephalic Pupils: Positive for: PERRL Conjunctiva: Positive for: Normal Mouth: Positive for: Moist Mucous Membranes, Other (ETT in place) Nose (External): Positive for: Other (NGT in place) Respiratory/Chest: Positive for: Clear to Auscultation. Negative for: Wheezes, Rales, Rhonchi Cardiovascular: Positive for: Regular Rate and Rhythm, Normal S1, S2 Abdomen: Positive for: Normal Bowel Sounds. Negative for: Tenderness Upper Extremity: Negative for: Edema Lower Extremity: Negative for: Edema Skin: Positive for: Warm, Dry - Medications Active Medications: Active Medications Generic Name Dose Route Start Last Admin Trade Name Freq PRN Reason Stop Dose Admin Heparin Sodium (Porcine) 5,000 units 11/09/17 22:00 11/09/17 21:36 Heparin SC 5,000 units Q12H DIONICIO Administration Propofol 1,000 mg in 100 mls @ 4.8 mls/hr 11/09/17 17:03 11/09/17 22:59 Diprivan IV 0 mcg/kg/min .[id number] PRN 0 mls/hr TITRATE PER MD ORDER Titration Protocol 10 MCG/KG/MIN Immune Globulin 640 mls @ 48 mls/hr 11/10/17 10:00 Octagam 5% IV 11/13/17 18:00 DAILY DIONICIO UD Dexmedetomidine HCl 200 mcg/ 50 mls @ 3.2 mls/hr 11/10/17 08:18 Sodium Chloride IV TITR PRN Agitation Protocol 0.2 MCG/KG/HR Lorazepam 1 mg 11/09/17 23:49 Ativan IVP Q4H PRN Agitation Methylprednisolone 125 mg 11/09/17 17:00 11/10/17 00:20 Solu-Medrol IV 125 mg Q8H DIONICIO Administration Pantoprazole Sodium 40 mg 11/10/17 10:00 Protonix Inj IVP DAILY DIONICIO Pyridostigmine [place] 60 mg 11/09/17 21:00 11/10/17 05:59 Mestinon Tab PO 60 mg Q8H DIONICIO Administration - Patient Studies Lab Studies: Microbiology Studies 11/09/17 19:19 Gram Stain - Final Trachasp Lab Studies 11/10/17 11/10/17 11/10/17 Range/Units 06:50 06:50 06:26 WBC 10.4 (4.8-10.8) K/uL RBC 4.02 (3.80-5.20) Mil/uL Hgb 12.0 (11.0-16.0) g/dL Hct 35.2 (34.0-47.0) % MCV 87.6 (81.0-99.0) fL MCH 29.9 (27.0-31.0) pg MCHC 34.1 (33.0-37.0) g/dL RDW 13.1 (11.5-14.5) % Plt Count 405 H (130-400) K/uL MPV 6.9 L (7.2-11.7) fL Neut % (Auto) 96.4 H (50.0-75.0) % Lymph % (Auto) 2.5 L (20.0-40.0) % [place] % (Auto) 0.9 (0.0-10.0) % Eos % (Auto) 0.0 (0.0-4.0) % Baso % (Auto) 0.2 (0.0-2.0) % Neut # (Auto) 10.1 H (1.8-7.0) K/uL Lymph # (Auto) 0.3 L (1.0-4.3) K/uL [place] # (Auto) 0.1 (0.0-0.8) K/uL Eos # (Auto) 0.0 (0.0-0.7) K/uL Baso # (Auto) 0.0 (0.0-0.2) K/uL Neutrophils % (Manual) 95 H (50-75) % Band Neutrophils % (0-2) % Lymphocytes % (Manual) 2 L (20-40) % Monocytes % (Manual) 3 (0-10) % Eosinophils % (Manual) (0-4) % Platelet Estimate Normal (NORMAL) Hypochromasia (manual) Microcytosis (manual) PT (9.7-12.2) SECONDS INR APTT 29 (21-34) SECONDS Puncture Site pCO2 (35-45) mm/Hg pO2 (80-100) mm/Hg HCO3 (21-28) mmol/L ABG pH (7.35-7.45) ABG Total CO2 (22-28) mmol/L ABG O2 Saturation (95-98) % ABG Base Excess (-2.0-3.0) mmol/L ABG Hemoglobin (11.7-17.4) g/dL ABG Carboxyhemoglobin (0.5-1.5) % POC ABG HHb (Measured) (0.0-5.0) % ABG Methemoglobin (0.0-3.0) % Gianni Test ABG Potassium (3.6-5.2) mmol/L A-a O2 Difference mm/Hg Respiratory Index Hgb O2 Saturation (95.0-98.0) % Glucose (65-105) mg/dl Lactate (0.7-2.1) mmol/L Vent Mode Mechanical Rate FiO2 % Tidal Volume PEEP Sodium 140 (132-148) mmol/L Potassium 5.3 H (3.6-5.2) mmol/L Chloride 110 H (98-107) mmol/L Carbon Dioxide 16 L (22-30) mmol/L Anion Gap 20 (10-20) BUN 15 (7-17) mg/dL Creatinine 0.6 L (0.7-1.2) mg/dL Est GFR ( Amer) > 60 Est GFR (Non-Af Amer) > 60 Random Glucose 165 H (65-105) mg/dL Calcium 9.3 (8.6-10.4) mg/dl Phosphorus 4.1 (2.5-4.5) mg/dL Magnesium 2.1 (1.6-2.3) mg/dL Total Bilirubin 1.3 (0.2-1.3) mg/dL AST 34 (14-36) U/L ALT < 6 L D (9-52) U/L Alkaline Phosphatase 62 (38-126) U/L Troponin I (0.00-0.120) ng/mL NT-Pro-B Natriuret Pep (0-450) pg/mL Total Protein 9.2 H (6.3-8.3) g/dL Albumin 3.6 (3.5-5.0) g/dL Globulin 5.6 H (2.2-3.9) gm/dL Albumin/Globulin Ratio 0.7 L (1.0-2.1) Arterial Blood Potassium (3.6-5.2) mmol/L Urine Color (YELLOW) Urine Clarity (Clear) Urine pH (5.0-8.0) Ur Specific [place] (1.003-1.030) Urine Protein (NEGATIVE) mg/dL Urine Glucose (UA) (Normal) mg/dL Urine Ketones (NEGATIVE) mg/dL Urine Blood (NEGATIVE) Urine Nitrate (NEGATIVE) Urine Bilirubin (NEGATIVE) Urine Urobilinogen (0.2-1.0) mg/dL Ur Leukocyte Esterase (Negative) Lakesha/uL Urine WBC (Auto) (0-5) /hpf Urine RBC (Auto) (0-3) /hpf Ur Squamous Epith Cells (0-5) /hpf Urine Bacteria (<OCC) Hyaline Casts (0-2) /lpf Urine HCG, Qual (NEGATIVE) 11/10/17 11/09/17 11/09/17 Range/Units 05:34 20:33 17:40 WBC (4.8-10.8) K/uL RBC (3.80-5.20) Mil/uL Hgb (11.0-16.0) g/dL Hct (34.0-47.0) % MCV (81.0-99.0) fL MCH (27.0-31.0) pg MCHC (33.0-37.0) g/dL RDW (11.5-14.5) % Plt Count (130-400) K/uL MPV (7.2-11.7) fL Neut % (Auto) (50.0-75.0) % Lymph % (Auto) (20.0-40.0) % [place] % (Auto) (0.0-10.0) % Eos % (Auto) (0.0-4.0) % Baso % (Auto) (0.0-2.0) % Neut # (Auto) (1.8-7.0) K/uL Lymph # (Auto) (1.0-4.3) K/uL [place] # (Auto) (0.0-0.8) K/uL Eos # (Auto) (0.0-0.7) K/uL Baso # (Auto) (0.0-0.2) K/uL Neutrophils % (Manual) (50-75) % Band Neutrophils % (0-2) % Lymphocytes % (Manual) (20-40) % Monocytes % (Manual) (0-10) % Eosinophils % (Manual) (0-4) % Platelet Estimate (NORMAL) Hypochromasia (manual) Microcytosis (manual) PT (9.7-12.2) SECONDS INR APTT (21-34) SECONDS Puncture Site Rr Rra pCO2 33 L 45 (35-45) mm/Hg pO2 175 H 306 H (80-100) mm/Hg HCO3 22.1 23.7 (21-28) mmol/L ABG pH 7.40 7.34 L (7.35-7.45) ABG Total CO2 21.4 L 25.7 (22-28) mmol/L ABG O2 Saturation 100.6 H 100.0 H (95-98) % ABG Base Excess -3.6 L -1.7 (-2.0-3.0) mmol/L ABG Hemoglobin 12.8 (11.7-17.4) g/dL ABG Carboxyhemoglobin 2.6 H (0.5-1.5) % POC ABG HHb (Measured) -0.6 L (0.0-5.0) % ABG Methemoglobin 1.7 (0.0-3.0) % Gianni Test Pos Pos ABG Potassium 3.0 L (3.6-5.2) mmol/L A-a O2 Difference 140.0 351.0 mm/Hg Respiratory Index 0.8 1.1 Hgb O2 Saturation 96.3 (95.0-98.0) % Glucose 133 H (65-105) mg/dl Lactate 2.0 (0.7-2.1) mmol/L Vent Mode Prvc Prvc Mechanical Rate 16 16 FiO2 50.0 100.0 % Tidal Volume 450 450 PEEP 5 5 Sodium 138.0 (132-148) mmol/L Potassium (3.6-5.2) mmol/L Chloride 108.0 H (98-107) mmol/L Carbon Dioxide (22-30) mmol/L Anion Gap (10-20) BUN (7-17) mg/dL Creatinine (0.7-1.2) mg/dL Est GFR ( Amer) Est GFR (Non-Af Amer) Random Glucose (65-105) mg/dL Calcium (8.6-10.4) mg/dl Phosphorus (2.5-4.5) mg/dL Magnesium (1.6-2.3) mg/dL Total Bilirubin (0.2-1.3) mg/dL AST (14-36) U/L ALT (9-52) U/L Alkaline Phosphatase (38-126) U/L Troponin I (0.00-0.120) ng/mL NT-Pro-B Natriuret Pep (0-450) pg/mL Total Protein (6.3-8.3) g/dL Albumin (3.5-5.0) g/dL Globulin (2.2-3.9) gm/dL Albumin/Globulin Ratio (1.0-2.1) Arterial Blood Potassium 3.0 L (3.6-5.2) mmol/L Urine Color (YELLOW) Urine Clarity (Clear) Urine pH (5.0-8.0) Ur Specific [place] (1.003-1.030) Urine Protein (NEGATIVE) mg/dL Urine Glucose (UA) (Normal) mg/dL Urine Ketones (NEGATIVE) mg/dL Urine Blood (NEGATIVE) Urine Nitrate (NEGATIVE) Urine Bilirubin (NEGATIVE) Urine Urobilinogen (0.2-1.0) mg/dL Ur Leukocyte Esterase (Negative) Lakesha/uL Urine WBC (Auto) (0-5) /hpf Urine RBC (Auto) (0-3) /hpf Ur Squamous Epith Cells (0-5) /hpf Urine Bacteria (<OCC) Hyaline Casts (0-2) /lpf Urine HCG, Qual Negative (NEGATIVE) 11/09/17 11/09/17 11/09/17 Range/Units 17:35 16:25 16:25 WBC (4.8-10.8) K/uL RBC (3.80-5.20) Mil/uL Hgb (11.0-16.0) g/dL Hct (34.0-47.0) % MCV (81.0-99.0) fL MCH (27.0-31.0) pg MCHC (33.0-37.0) g/dL RDW (11.5-14.5) % Plt Count (130-400) K/uL MPV (7.2-11.7) fL Neut % (Auto) (50.0-75.0) % Lymph % (Auto) (20.0-40.0) % [place] % (Auto) (0.0-10.0) % Eos % (Auto) (0.0-4.0) % Baso % (Auto) (0.0-2.0) % Neut # (Auto) (1.8-7.0) K/uL Lymph # (Auto) (1.0-4.3) K/uL [place] # (Auto) (0.0-0.8) K/uL Eos # (Auto) (0.0-0.7) K/uL Baso # (Auto) (0.0-0.2) K/uL Neutrophils % (Manual) (50-75) % Band Neutrophils % (0-2) % Lymphocytes % (Manual) (20-40) % Monocytes % (Manual) (0-10) % Eosinophils % (Manual) (0-4) % Platelet Estimate (NORMAL) Hypochromasia (manual) Microcytosis (manual) PT 12.3 H (9.7-12.2) SECONDS INR 1.1 APTT 27 (21-34) SECONDS Puncture Site pCO2 (35-45) mm/Hg pO2 (80-100) mm/Hg HCO3 (21-28) mmol/L ABG pH (7.35-7.45) ABG Total CO2 (22-28) mmol/L ABG O2 Saturation (95-98) % ABG Base Excess (-2.0-3.0) mmol/L ABG Hemoglobin (11.7-17.4) g/dL ABG Carboxyhemoglobin (0.5-1.5) % POC ABG HHb (Measured) (0.0-5.0) % ABG Methemoglobin (0.0-3.0) % Gianni Test ABG Potassium (3.6-5.2) mmol/L A-a O2 Difference mm/Hg Respiratory Index Hgb O2 Saturation (95.0-98.0) % Glucose (65-105) mg/dl Lactate (0.7-2.1) mmol/L Vent Mode Mechanical Rate FiO2 % Tidal Volume PEEP Sodium 141 (132-148) mmol/L Potassium 3.5 L (3.6-5.2) mmol/L Chloride 106 (98-107) mmol/L Carbon Dioxide 23 (22-30) mmol/L Anion Gap 16 (10-20) BUN 16 (7-17) mg/dL Creatinine 0.7 (0.7-1.2) mg/dL Est GFR ( Amer) > 60 Est GFR (Non-Af Amer) > 60 Random Glucose 118 H (65-105) mg/dL Calcium 8.8 (8.6-10.4) mg/dl Phosphorus (2.5-4.5) mg/dL Magnesium (1.6-2.3) mg/dL Total Bilirubin 1.1 (0.2-1.3) mg/dL AST 26 (14-36) U/L ALT 8 L (9-52) U/L Alkaline Phosphatase 65 (38-126) U/L Troponin I < 0.0120 (0.00-0.120) ng/mL NT-Pro-B Natriuret Pep 49.8 (0-450) pg/mL Total Protein 9.8 H (6.3-8.3) g/dL Albumin 3.9 (3.5-5.0) g/dL Globulin 5.8 H (2.2-3.9) gm/dL Albumin/Globulin Ratio 0.7 L (1.0-2.1) Arterial Blood Potassium (3.6-5.2) mmol/L Urine Color Yellow (YELLOW) Urine Clarity Clear (Clear) Urine pH 5.0 (5.0-8.0) Ur Specific [place] 1.015 (1.003-1.030) Urine Protein 1+ H (NEGATIVE) mg/dL Urine Glucose (UA) Normal (Normal) mg/dL Urine Ketones Negative (NEGATIVE) mg/dL Urine Blood 1+ H (NEGATIVE) Urine Nitrate Negative (NEGATIVE) Urine Bilirubin Negative (NEGATIVE) Urine Urobilinogen Normal (0.2-1.0) mg/dL Ur Leukocyte Esterase Neg (Negative) [place]ha/uL Urine WBC (Auto) 4 (0-5) /hpf Urine RBC (Auto) 7 H (0-3) /hpf Ur Squamous Epith Cells < 1 (0-5) /hpf Urine Bacteria Occ H (<OCC) Hyaline Casts 0-2 (0-2) /lpf Urine HCG, Qual (NEGATIVE) 11/09/17 Range/Units 16:25 WBC 7.8 (4.8-10.8) K/uL RBC 4.30 (3.80-5.20) Mil/uL Hgb 12.7 (11.0-16.0) g/dL Hct 38.1 (34.0-47.0) % MCV 88.6 (81.0-99.0) fL MCH 29.6 (27.0-31.0) pg MCHC 33.5 (33.0-37.0) g/dL RDW 13.2 (11.5-14.5) % Plt Count 423 H (130-400) K/uL MPV 6.7 L (7.2-11.7) fL Neut % (Auto) 95.3 H (50.0-75.0) % Lymph % (Auto) 3.2 L (20.0-40.0) % [place] % (Auto) 0.8 (0.0-10.0) % Eos % (Auto) 0.6 (0.0-4.0) % Baso % (Auto) 0.1 (0.0-2.0) % Neut # (Auto) 7.4 H (1.8-7.0) K/uL Lymph # (Auto) 0.3 L (1.0-4.3) K/uL [place] # (Auto) 0.1 (0.0-0.8) K/uL Eos # (Auto) 0.0 (0.0-0.7) K/uL Baso # (Auto) 0.0 (0.0-0.2) K/uL Neutrophils % (Manual) 89 H (50-75) % Band Neutrophils % 7 H (0-2) % Lymphocytes % (Manual) 1 L (20-40) % Monocytes % (Manual) 2 (0-10) % Eosinophils % (Manual) 1 (0-4) % Platelet Estimate Slightly increased H (NORMAL) Hypochromasia (manual) Slight Microcytosis (manual) Slight PT (9.7-12.2) SECONDS INR APTT (21-34) SECONDS Puncture Site pCO2 (35-45) mm/Hg pO2 (80-100) mm/Hg HCO3 (21-28) mmol/L ABG pH (7.35-7.45) ABG Total CO2 (22-28) mmol/L ABG O2 Saturation (95-98) % ABG Base Excess (-2.0-3.0) mmol/L ABG Hemoglobin (11.7-17.4) g/dL ABG Carboxyhemoglobin (0.5-1.5) % POC ABG HHb (Measured) (0.0-5.0) % ABG Methemoglobin (0.0-3.0) % Gianni Test ABG Potassium (3.6-5.2) mmol/L A-a O2 Difference mm/Hg Respiratory Index Hgb O2 Saturation (95.0-98.0) % Glucose (65-105) mg/dl Lactate (0.7-2.1) mmol/L Vent Mode Mechanical Rate FiO2 % Tidal Volume PEEP Sodium (132-148) mmol/L Potassium (3.6-5.2) mmol/L Chloride (98-107) mmol/L Carbon Dioxide (22-30) mmol/L Anion Gap (10-20) BUN (7-17) mg/dL Creatinine (0.7-1.2) mg/dL Est GFR ( Amer) Est GFR (Non-Af Amer) Random Glucose (65-105) mg/dL Calcium (8.6-10.4) mg/dl Phosphorus (2.5-4.5) mg/dL Magnesium (1.6-2.3) mg/dL Total Bilirubin (0.2-1.3) mg/dL AST (14-36) U/L ALT (9-52) U/L Alkaline Phosphatase (38-126) U/L Troponin I (0.00-0.120) ng/mL NT-Pro-B Natriuret Pep (0-450) pg/mL Total Protein (6.3-8.3) g/dL Albumin (3.5-5.0) g/dL Globulin (2.2-3.9) gm/dL Albumin/Globulin Ratio (1.0-2.1) Arterial Blood Potassium (3.6-5.2) mmol/L Urine Color (YELLOW) Urine Clarity (Clear) Urine pH (5.0-8.0) Ur Specific [place] (1.003-1.030) Urine Protein (NEGATIVE) mg/dL Urine Glucose (UA) (Normal) mg/dL Urine Ketones (NEGATIVE) mg/dL Urine Blood (NEGATIVE) Urine Nitrate (NEGATIVE) Urine Bilirubin (NEGATIVE) Urine Urobilinogen (0.2-1.0) mg/dL Ur Leukocyte Esterase (Negative) Lakesha/uL Urine WBC (Auto) (0-5) /hpf Urine RBC (Auto) (0-3) /hpf Ur Squamous Epith Cells (0-5) /hpf Urine Bacteria (<OCC) Hyaline Casts (0-2) /lpf Urine HCG, Qual (NEGATIVE) Laboratory Results - last 24 hr 11/09/17 11/09/17 11/09/17 16:25 16:25 16:25 WBC 7.8 RBC 4.30 Hgb 12.7 Hct 38.1 MCV 88.6 MCH 29.6 MCHC 33.5 RDW 13.2 Plt Count 423 H MPV 6.7 L Neut % (Auto) 95.3 H Lymph % (Auto) 3.2 L [place] % (Auto) 0.8 Eos % (Auto) 0.6 Baso % (Auto) 0.1 Neut # (Auto) 7.4 H Lymph # (Auto) 0.3 L [place] # (Auto) 0.1 Eos # (Auto) 0.0 Baso # (Auto) 0.0 Neutrophils % (Manual) 89 H Band Neutrophils % 7 H Lymphocytes % (Manual) 1 L Monocytes % (Manual) 2 Eosinophils % (Manual) 1 Platelet Estimate Slightly increased H Hypochromasia (manual) Slight Microcytosis (manual) Slight PT 12.3 H INR 1.1 APTT 27 Puncture Site pCO2 pO2 HCO3 ABG pH ABG Total CO2 ABG O2 Saturation ABG Base Excess ABG Hemoglobin ABG Carboxyhemoglobin POC ABG HHb (Measured) ABG Methemoglobin Gianni Test ABG Potassium A-a O2 Difference Respiratory Index Hgb O2 Saturation Glucose Lactate Vent Mode Mechanical Rate FiO2 Tidal Volume PEEP Sodium 141 Potassium 3.5 L Chloride 106 Carbon Dioxide 23 Anion Gap 16 BUN 16 Creatinine 0.7 Est GFR ( Amer) > 60 Est GFR (Non-Af Amer) > 60 Random Glucose 118 H Calcium 8.8 Phosphorus Magnesium Total Bilirubin 1.1 AST 26 ALT 8 L Alkaline Phosphatase 65 Troponin I < 0.0120 NT-Pro-B Natriuret Pep 49.8 Total Protein 9.8 H Albumin 3.9 Globulin 5.8 H Albumin/Globulin Ratio 0.7 L Arterial Blood Potassium Urine Color Urine Clarity Urine pH Ur Specific [place] Urine Protein Urine Glucose (UA) Urine Ketones Urine Blood Urine Nitrate Urine Bilirubin Urine Urobilinogen Ur Leukocyte Esterase Urine WBC (Auto) Urine RBC (Auto) Ur Squamous Epith Cells Urine Bacteria Hyaline Casts Urine HCG, Qual 11/09/17 11/09/17 11/09/17 17:35 17:40 20:33 WBC RBC Hgb Hct MCV MCH MCHC RDW Plt Count MPV Neut % (Auto) Lymph % (Auto) [place] % (Auto) Eos % (Auto) Baso % (Auto) Neut # (Auto) Lymph # (Auto) [place] # (Auto) Eos # (Auto) Baso # (Auto) Neutrophils % (Manual) Band Neutrophils % Lymphocytes % (Manual) Monocytes % (Manual) Eosinophils % (Manual) Platelet Estimate Hypochromasia (manual) Microcytosis (manual) PT INR APTT Puncture Site Rra pCO2 45 pO2 306 H HCO3 23.7 ABG pH 7.34 L ABG Total CO2 25.7 ABG O2 Saturation 100.0 H ABG Base Excess -1.7 ABG Hemoglobin ABG Carboxyhemoglobin POC ABG HHb (Measured) ABG Methemoglobin Gianni Test Pos ABG Potassium 3.0 L A-a O2 Difference 351.0 Respiratory Index 1.1 Hgb O2 Saturation Glucose 133 H Lactate 2.0 Vent Mode Prvc Mechanical Rate 16 FiO2 100.0 Tidal Volume 450 PEEP 5 Sodium 138.0 Potassium Chloride 108.0 H Carbon Dioxide Anion Gap BUN Creatinine Est GFR ( Amer) Est GFR (Non-Af Amer) Random Glucose Calcium Phosphorus Magnesium Total Bilirubin AST ALT Alkaline Phosphatase Troponin I NT-Pro-B Natriuret Pep Total Protein Albumin Globulin Albumin/Globulin Ratio Arterial Blood Potassium 3.0 L Urine Color Yellow Urine Clarity Clear Urine pH 5.0 Ur Specific [place] 1.015 Urine Protein 1+ H Urine Glucose (UA) Normal Urine Ketones Negative Urine Blood 1+ H Urine Nitrate Negative Urine Bilirubin Negative Urine Urobilinogen Normal Ur Leukocyte Esterase Neg Urine WBC (Auto) 4 Urine RBC (Auto) 7 H Ur Squamous Epith Cells < 1 Urine Bacteria Occ H Hyaline Casts 0-2 Urine HCG, Qual Negative 11/10/17 11/10/17 11/10/17 05:34 06:26 06:50 WBC RBC Hgb Hct MCV MCH MCHC RDW Plt Count MPV Neut % (Auto) Lymph % (Auto) [place] % (Auto) Eos % (Auto) Baso % (Auto) Neut # (Auto) Lymph # (Auto) [place] # (Auto) Eos # (Auto) Baso # (Auto) Neutrophils % (Manual) Band Neutrophils % Lymphocytes % (Manual) Monocytes % (Manual) Eosinophils % (Manual) Platelet Estimate Hypochromasia (manual) Microcytosis (manual) PT INR APTT 29 Puncture Site Rr pCO2 33 L pO2 175 H HCO3 22.1 ABG pH 7.40 ABG Total CO2 21.4 L ABG O2 Saturation 100.6 H ABG Base Excess -3.6 L ABG Hemoglobin 12.8 ABG Carboxyhemoglobin 2.6 H POC ABG HHb (Measured) -0.6 L ABG Methemoglobin 1.7 Gianni Test Pos ABG Potassium A-a O2 Difference 140.0 Respiratory Index 0.8 Hgb O2 Saturation 96.3 Glucose Lactate Vent Mode Prvc Mechanical Rate 16 FiO2 50.0 Tidal Volume 450 PEEP 5 Sodium 140 Potassium 5.3 H Chloride 110 H Carbon Dioxide 16 L Anion Gap 20 BUN 15 Creatinine 0.6 L Est GFR ( Amer) > 60 Est GFR (Non-Af Amer) > 60 Random Glucose 165 H Calcium 9.3 Phosphorus 4.1 Magnesium 2.1 Total Bilirubin 1.3 AST 34 ALT < 6 L D Alkaline Phosphatase 62 Troponin I NT-Pro-B Natriuret Pep Total Protein 9.2 H Albumin 3.6 Globulin 5.6 H Albumin/Globulin Ratio 0.7 L Arterial Blood Potassium Urine Color Urine Clarity Urine pH Ur Specific [place] Urine Protein Urine Glucose (UA) Urine Ketones Urine Blood Urine Nitrate Urine Bilirubin Urine Urobilinogen Ur Leukocyte Esterase Urine WBC (Auto) Urine RBC (Auto) Ur Squamous Epith Cells Urine Bacteria Hyaline Casts Urine HCG, Qual 11/10/17 06:50 WBC 10.4 RBC 4.02 Hgb 12.0 Hct 35.2 MCV 87.6 MCH 29.9 MCHC 34.1 RDW 13.1 Plt Count 405 H MPV 6.9 L Neut % (Auto) 96.4 H Lymph % (Auto) 2.5 L [place] % (Auto) 0.9 Eos % (Auto) 0.0 Baso % (Auto) 0.2 Neut # (Auto) 10.1 H Lymph # (Auto) 0.3 L [place] # (Auto) 0.1 Eos # (Auto) 0.0 Baso # (Auto) 0.0 Neutrophils % (Manual) 95 H Band Neutrophils % Lymphocytes % (Manual) 2 L Monocytes % (Manual) 3 Eosinophils % (Manual) Platelet Estimate Normal Hypochromasia (manual) Microcytosis (manual) PT INR APTT Puncture Site pCO2 pO2 HCO3 ABG pH ABG Total CO2 ABG O2 Saturation ABG Base Excess ABG Hemoglobin ABG Carboxyhemoglobin POC ABG HHb (Measured) ABG Methemoglobin Gianni Test ABG Potassium A-a O2 Difference Respiratory Index Hgb O2 Saturation Glucose Lactate Vent Mode Mechanical Rate FiO2 Tidal Volume PEEP Sodium Potassium Chloride Carbon Dioxide Anion Gap BUN Creatinine Est GFR ( Amer) Est GFR (Non-Af Amer) Random Glucose Calcium Phosphorus Magnesium Total Bilirubin AST ALT Alkaline Phosphatase Troponin I NT-Pro-B Natriuret Pep Total Protein Albumin Globulin Albumin/Globulin Ratio Arterial Blood Potassium Urine Color Urine Clarity Urine pH Ur Specific [place] Urine Protein Urine Glucose (UA) Urine Ketones Urine Blood Urine Nitrate Urine Bilirubin Urine Urobilinogen Ur Leukocyte Esterase Urine WBC (Auto) Urine RBC (Auto) Ur Squamous Epith Cells Urine Bacteria Hyaline Casts Urine HCG, Qual EKG/Cardiology Studies: Cardiology / EKG Studies 11/09/17 16:21 ELECTROCARDIOGRAM Stat Comment: Mode Of Transportation: BED Reason For Exam: chest pain Assessment/Plan - Assessment and Plan (Free Text) Assessment: This is a 47 year old female with PMHx Asthma, Thymoma s/p resection 6 weeks ago , myasthenia gravis (started after thymoma resection) who presented to the hospital sent in by Dr. Branch for shortness of breath. Patient diagnosed to be in myasthenia crisis and was subsequently intubated. Patient awake this morning despite Precedex and requesting to be extubated. Will try pressure support and wean her off of ventilator. Neuro Assessment: Myasthenia Crisis Intubated and sedated on precedex Given first ever dose of IVIG on 11/09/17 at 1 mg/kg in the office. IVIG 0.4 mg/kg for 4 days starting 11/10/17 Solumedrol 125 mg IV Q8H Pyridostigmine 60 mg PO Q8H Patient may eventually need plasmapheresis Cardio No active issues Pulm Assessment: Hx of Asthma, Recurrent pleural effusions Albuterol 1.25 mg Nebulizer Q6H DIONICIO Will wean off of the ventilator as tolerated GI Protonix 40 mg IV daily Tube feeds ordered but will hold off and see if she can be extubated Prophylaxis Heparin SC Q12H Protonix 40 mg IV daily Discussed with Dr. Crespo <Abdifatah Crespo - Last Filed: 11/10/17 17:07> CCU Objective - Vital Signs / Intake & Output Intake and Output (Last 8hrs): Intake & Output 11/10/17 11/10/17 11/10/17 06:59 14:59 22:59 Intake Total 188 48 Output Total 340 140 Balance -152 -92 Weight 141 lb 1.533 oz 141 lb 1.533 oz Intake: IV 100 Intake, IV Amount 88 48 Right Antecubital 88 48 Output: Urine 340 140 Urethral ([place]) 340 140 Other: # Bowel Movements 0 0 - Medications Active Medications: Active Medications Generic Name Dose Route Start Last Admin Trade Name Freq PRN Reason Stop Dose Admin Artificial Tears 0 ml 11/10/17 14:00 11/10/17 13:53 Artificial Tears OU 1 drop BID DIONICIO Administration Heparin Sodium (Porcine) 5,000 units 11/09/17 22:00 11/10/17 09:44 Heparin SC 5,000 units Q12H DIONICIO Administration Dexmedetomidine HCl 200 mcg/ 50 mls @ 3.2 mls/hr 11/10/17 08:18 11/10/17 09: 44 Sodium Chloride IV 0.75 mcg/kg/hr TITR PRN 12 mls/hr Agitation Administration Protocol 0.2 MCG/KG/HR Immune Globulin 500 mls @ 0 mls/hr 11/10/17 10:00 11/10/17 11:44 Octagam 5% IV 11/13/17 10:01 48 mls/hr DAILY DIONICIO Administration UD Lorazepam 1 mg 11/09/17 23:49 Ativan IVP Q4H PRN Agitation Methylprednisolone 125 mg 11/09/17 17:00 11/10/17 09:43 Solu-Medrol IV 125 mg Q8H DIONICIO Administration Pantoprazole Sodium 40 mg 11/10/17 10:00 11/10/17 09:44 Protonix Inj IVP 40 mg DAILY DIONICIO Administration Pyridostigmine [place] 60 mg 11/09/17 21:00 11/10/17 13:53 Mestinon Tab PO 60 mg Q8H DIONICIO Administration - Patient Studies Lab Studies: Microbiology Studies 11/09/17 17:27 Urine Culture - Final Urine,Catheterized No Growth (<1,000 CFU/ML) 11/09/17 19:19 Gram Stain - Final Trachasp Lab Studies 11/10/17 11/10/17 11/10/17 Range/Units 06:50 06:50 06:26 WBC 10.4 (4.8-10.8) K/uL RBC 4.02 (3.80-5.20) Mil/uL Hgb 12.0 (11.0-16.0) g/dL Hct 35.2 (34.0-47.0) % MCV 87.6 (81.0-99.0) fL MCH 29.9 (27.0-31.0) pg MCHC 34.1 (33.0-37.0) g/dL RDW 13.1 (11.5-14.5) % Plt Count 405 H (130-400) K/uL MPV 6.9 L (7.2-11.7) fL Neut % (Auto) 96.4 H (50.0-75.0) % Lymph % (Auto) 2.5 L (20.0-40.0) % [place] % (Auto) 0.9 (0.0-10.0) % Eos % (Auto) 0.0 (0.0-4.0) % Baso % (Auto) 0.2 (0.0-2.0) % Neut # (Auto) 10.1 H (1.8-7.0) K/uL Lymph # (Auto) 0.3 L (1.0-4.3) K/uL [place] # (Auto) 0.1 (0.0-0.8) K/uL Eos # (Auto) 0.0 (0.0-0.7) K/uL Baso # (Auto) 0.0 (0.0-0.2) K/uL Neutrophils % (Manual) 95 H (50-75) % Band Neutrophils % (0-2) % Lymphocytes % (Manual) 2 L (20-40) % Monocytes % (Manual) 3 (0-10) % Eosinophils % (Manual) (0-4) % Platelet Estimate Normal (NORMAL) Hypochromasia (manual) Microcytosis (manual) APTT 29 (21-34) SECONDS Puncture Site pCO2 (35-45) mm/Hg pO2 (80-100) mm/Hg HCO3 (21-28) mmol/L ABG pH (7.35-7.45) ABG Total CO2 (22-28) mmol/L ABG O2 Saturation (95-98) % ABG Base Excess (-2.0-3.0) mmol/L ABG Hemoglobin (11.7-17.4) g/dL ABG Carboxyhemoglobin (0.5-1.5) % POC ABG HHb (Measured) (0.0-5.0) % ABG Methemoglobin (0.0-3.0) % Gianni Test ABG Potassium (3.6-5.2) mmol/L A-a O2 Difference mm/Hg Respiratory Index Hgb O2 Saturation (95.0-98.0) % Sodium 140 (132-148) mmol/l Chloride 110 H (98-107) mmol/L Glucose (65-105) mg/dl Lactate (0.7-2.1) mmol/L Vent Mode Mechanical Rate FiO2 % Tidal Volume PEEP Potassium 5.3 H (3.6-5.2) mmol/L Carbon Dioxide 16 L (22-30) mmol/L Anion Gap 20 (10-20) BUN 15 (7-17) mg/dL Creatinine 0.6 L (0.7-1.2) mg/dL Est GFR ( Amer) > 60 Est GFR (Non-Af Amer) > 60 Random Glucose 165 H (65-105) mg/dL Calcium 9.3 (8.6-10.4) mg/dl Phosphorus 4.1 (2.5-4.5) mg/dL Magnesium 2.1 (1.6-2.3) mg/dL Total Bilirubin 1.3 (0.2-1.3) mg/dL AST 34 (14-36) U/L ALT < 6 L D (9-52) U/L Alkaline Phosphatase 62 (38-126) U/L Total Protein 9.2 H (6.3-8.3) g/dL Albumin 3.6 (3.5-5.0) g/dL Globulin 5.6 H (2.2-3.9) gm/dL Albumin/Globulin Ratio 0.7 L (1.0-2.1) TSH 3rd Generation 0.28 L (0.46-4.68) mIU/L Arterial Blood Potassium (3.6-5.2) mmol/L Urine Color (YELLOW) Urine Clarity (Clear) Urine pH (5.0-8.0) Ur Specific [place] (1.003-1.030) Urine Protein (NEGATIVE) mg/dL Urine Glucose (UA) (Normal) mg/dL Urine Ketones (NEGATIVE) mg/dL Urine Blood (NEGATIVE) Urine Nitrate (NEGATIVE) Urine Bilirubin (NEGATIVE) Urine Urobilinogen (0.2-1.0) mg/dL Ur Leukocyte Esterase (Negative) Lakesha/uL Urine WBC (Auto) (0-5) /hpf Urine RBC (Auto) (0-3) /hpf Ur Squamous Epith Cells (0-5) /hpf Urine Bacteria (<OCC) Hyaline Casts (0-2) /lpf Urine HCG, Qual (NEGATIVE) 11/10/17 11/09/17 11/09/17 Range/Units 05:34 20:33 17:40 WBC (4.8-10.8) K/uL RBC (3.80-5.20) Mil/uL Hgb (11.0-16.0) g/dL Hct (34.0-47.0) % MCV (81.0-99.0) fL MCH (27.0-31.0) pg MCHC (33.0-37.0) g/dL RDW (11.5-14.5) % Plt Count (130-400) K/uL MPV (7.2-11.7) fL Neut % (Auto) (50.0-75.0) % Lymph % (Auto) (20.0-40.0) % [place] % (Auto) (0.0-10.0) % Eos % (Auto) (0.0-4.0) % Baso % (Auto) (0.0-2.0) % Neut # (Auto) (1.8-7.0) K/uL Lymph # (Auto) (1.0-4.3) K/uL [place] # (Auto) (0.0-0.8) K/uL Eos # (Auto) (0.0-0.7) K/uL Baso # (Auto) (0.0-0.2) K/uL Neutrophils % (Manual) (50-75) % Band Neutrophils % (0-2) % Lymphocytes % (Manual) (20-40) % Monocytes % (Manual) (0-10) % Eosinophils % (Manual) (0-4) % Platelet Estimate (NORMAL) Hypochromasia (manual) Microcytosis (manual) APTT (21-34) SECONDS Puncture Site Rr Rra pCO2 33 L 45 (35-45) mm/Hg pO2 175 H 306 H (80-100) mm/Hg HCO3 22.1 23.7 (21-28) mmol/L ABG pH 7.40 7.34 L (7.35-7.45) ABG Total CO2 21.4 L 25.7 (22-28) mmol/L ABG O2 Saturation 100.6 H 100.0 H (95-98) % ABG Base Excess -3.6 L -1.7 (-2.0-3.0) mmol/L ABG Hemoglobin 12.8 (11.7-17.4) g/dL ABG Carboxyhemoglobin 2.6 H (0.5-1.5) % POC ABG HHb (Measured) -0.6 L (0.0-5.0) % ABG Methemoglobin 1.7 (0.0-3.0) % Gianni Test Pos Pos ABG Potassium 3.0 L (3.6-5.2) mmol/L A-a O2 Difference 140.0 351.0 mm/Hg Respiratory Index 0.8 1.1 Hgb O2 Saturation 96.3 (95.0-98.0) % Sodium 138.0 (132-148) mmol/l Chloride 108.0 H (98-107) mmol/L Glucose 133 H (65-105) mg/dl Lactate 2.0 (0.7-2.1) mmol/L Vent Mode Prvc Prvc Mechanical Rate 16 16 FiO2 50.0 100.0 % Tidal Volume 450 450 PEEP 5 5 Potassium (3.6-5.2) mmol/L Carbon Dioxide (22-30) mmol/L Anion Gap (10-20) BUN (7-17) mg/dL Creatinine (0.7-1.2) mg/dL Est GFR ( Amer) Est GFR (Non-Af Amer) Random Glucose (65-105) mg/dL Calcium (8.6-10.4) mg/dl Phosphorus (2.5-4.5) mg/dL Magnesium (1.6-2.3) mg/dL Total Bilirubin (0.2-1.3) mg/dL AST (14-36) U/L ALT (9-52) U/L Alkaline Phosphatase (38-126) U/L Total Protein (6.3-8.3) g/dL Albumin (3.5-5.0) g/dL Globulin (2.2-3.9) gm/dL Albumin/Globulin Ratio (1.0-2.1) TSH 3rd Generation (0.46-4.68) mIU/L Arterial Blood Potassium 3.0 L (3.6-5.2) mmol/L Urine Color (YELLOW) Urine Clarity (Clear) Urine pH (5.0-8.0) Ur Specific [place] (1.003-1.030) Urine Protein (NEGATIVE) mg/dL Urine Glucose (UA) (Normal) mg/dL Urine Ketones (NEGATIVE) mg/dL Urine Blood (NEGATIVE) Urine Nitrate (NEGATIVE) Urine Bilirubin (NEGATIVE) Urine Urobilinogen (0.2-1.0) mg/dL Ur Leukocyte Esterase (Negative) Lakesha/uL Urine WBC (Auto) (0-5) /hpf Urine RBC (Auto) (0-3) /hpf Ur Squamous Epith Cells (0-5) /hpf Urine Bacteria (<OCC) Hyaline Casts (0-2) /lpf Urine HCG, Qual Negative (NEGATIVE) 11/09/17 11/09/17 Range/Units 17:35 16:25 WBC (4.8-10.8) K/uL RBC (3.80-5.20) Mil/uL Hgb (11.0-16.0) g/dL Hct (34.0-47.0) % MCV (81.0-99.0) fL MCH (27.0-31.0) pg MCHC (33.0-37.0) g/dL RDW (11.5-14.5) % Plt Count (130-400) K/uL MPV (7.2-11.7) fL Neut % (Auto) (50.0-75.0) % Lymph % (Auto) (20.0-40.0) % [place] % (Auto) (0.0-10.0) % Eos % (Auto) (0.0-4.0) % Baso % (Auto) (0.0-2.0) % Neut # (Auto) (1.8-7.0) K/uL Lymph # (Auto) (1.0-4.3) K/uL [place] # (Auto) (0.0-0.8) K/uL Eos # (Auto) (0.0-0.7) K/uL Baso # (Auto) (0.0-0.2) K/uL Neutrophils % (Manual) 89 H (50-75) % Band Neutrophils % 7 H (0-2) % Lymphocytes % (Manual) 1 L (20-40) % Monocytes % (Manual) 2 (0-10) % Eosinophils % (Manual) 1 (0-4) % Platelet Estimate Slightly increased H (NORMAL) Hypochromasia (manual) Slight Microcytosis (manual) Slight APTT (21-34) SECONDS Puncture Site pCO2 (35-45) mm/Hg pO2 (80-100) mm/Hg HCO3 (21-28) mmol/L ABG pH (7.35-7.45) ABG Total CO2 (22-28) mmol/L ABG O2 Saturation (95-98) % ABG Base Excess (-2.0-3.0) mmol/L ABG Hemoglobin (11.7-17.4) g/dL ABG Carboxyhemoglobin (0.5-1.5) % POC ABG HHb (Measured) (0.0-5.0) % ABG Methemoglobin (0.0-3.0) % Gianni Test ABG Potassium (3.6-5.2) mmol/L A-a O2 Difference mm/Hg Respiratory Index Hgb O2 Saturation (95.0-98.0) % Sodium (132-148) mmol/l Chloride (98-107) mmol/L Glucose (65-105) mg/dl Lactate (0.7-2.1) mmol/L Vent Mode Mechanical Rate FiO2 % Tidal Volume PEEP Potassium (3.6-5.2) mmol/L Carbon Dioxide (22-30) mmol/L Anion Gap (10-20) BUN (7-17) mg/dL Creatinine (0.7-1.2) mg/dL Est GFR ( Amer) Est GFR (Non-Af Amer) Random Glucose (65-105) mg/dL Calcium (8.6-10.4) mg/dl Phosphorus (2.5-4.5) mg/dL Magnesium (1.6-2.3) mg/dL Total Bilirubin (0.2-1.3) mg/dL AST (14-36) U/L ALT (9-52) U/L Alkaline Phosphatase (38-126) U/L Total Protein (6.3-8.3) g/dL Albumin (3.5-5.0) g/dL Globulin (2.2-3.9) gm/dL Albumin/Globulin Ratio (1.0-2.1) TSH 3rd Generation (0.46-4.68) mIU/L Arterial Blood Potassium (3.6-5.2) mmol/L Urine Color Yellow (YELLOW) Urine Clarity Clear (Clear) Urine pH 5.0 (5.0-8.0) Ur Specific [place] 1.015 (1.003-1.030) Urine Protein 1+ H (NEGATIVE) mg/dL Urine Glucose (UA) Normal (Normal) mg/dL Urine Ketones Negative (NEGATIVE) mg/dL Urine Blood 1+ H (NEGATIVE) Urine Nitrate Negative (NEGATIVE) Urine Bilirubin Negative (NEGATIVE) Urine Urobilinogen Normal (0.2-1.0) mg/dL Ur Leukocyte Esterase Neg (Negative) Lakesha/uL Urine WBC (Auto) 4 (0-5) /hpf Urine RBC (Auto) 7 H (0-3) /hpf Ur Squamous Epith Cells < 1 (0-5) /hpf Urine Bacteria Occ H (<OCC) Hyaline Casts 0-2 (0-2) /lpf Urine HCG, Qual (NEGATIVE) Laboratory Results - last 24 hr 11/09/17 11/09/17 11/09/17 16:25 17:35 17:40 WBC RBC Hgb Hct MCV MCH MCHC RDW Plt Count MPV Neut % (Auto) Lymph % (Auto) [place] % (Auto) Eos % (Auto) Baso % (Auto) Neut # (Auto) Lymph # (Auto) [place] # (Auto) Eos # (Auto) Baso # (Auto) Neutrophils % (Manual) 89 H Band Neutrophils % 7 H Lymphocytes % (Manual) 1 L Monocytes % (Manual) 2 Eosinophils % (Manual) 1 Platelet Estimate Slightly increased H Hypochromasia (manual) Slight Microcytosis (manual) Slight APTT Puncture Site Rra pCO2 45 pO2 306 H HCO3 23.7 ABG pH 7.34 L ABG Total CO2 25.7 ABG O2 Saturation 100.0 H ABG Base Excess -1.7 ABG Hemoglobin ABG Carboxyhemoglobin POC ABG HHb (Measured) ABG Methemoglobin Gianni Test Pos ABG Potassium 3.0 L A-a O2 Difference 351.0 Respiratory Index 1.1 Hgb O2 Saturation Sodium 138.0 Chloride 108.0 H Glucose 133 H Lactate 2.0 Vent Mode Prvc Mechanical Rate 16 FiO2 100.0 Tidal Volume 450 PEEP 5 Potassium Carbon Dioxide Anion Gap BUN Creatinine Est GFR ( Amer) Est GFR (Non-Af Amer) Random Glucose Calcium Phosphorus Magnesium Total Bilirubin AST ALT Alkaline Phosphatase Total Protein Albumin Globulin Albumin/Globulin Ratio TSH 3rd Generation Arterial Blood Potassium 3.0 L Urine Color Yellow Urine Clarity Clear Urine pH 5.0 Ur Specific [place] 1.015 Urine Protein 1+ H Urine Glucose (UA) Normal Urine Ketones Negative Urine Blood 1+ H Urine Nitrate Negative Urine Bilirubin Negative Urine Urobilinogen Normal Ur Leukocyte Esterase Neg Urine WBC (Auto) 4 Urine RBC (Auto) 7 H Ur Squamous Epith Cells < 1 Urine Bacteria Occ H Hyaline Casts 0-2 Urine HCG, Qual 11/09/17 11/10/17 11/10/17 20:33 05:34 06:26 WBC RBC Hgb Hct MCV MCH MCHC RDW Plt Count MPV Neut % (Auto) Lymph % (Auto) [place] % (Auto) Eos % (Auto) Baso % (Auto) Neut # (Auto) Lymph # (Auto) [place] # (Auto) Eos # (Auto) Baso # (Auto) Neutrophils % (Manual) Band Neutrophils % Lymphocytes % (Manual) Monocytes % (Manual) Eosinophils % (Manual) Platelet Estimate Hypochromasia (manual) Microcytosis (manual) APTT Puncture Site Rr pCO2 33 L pO2 175 H HCO3 22.1 ABG pH 7.40 ABG Total CO2 21.4 L ABG O2 Saturation 100.6 H ABG Base Excess -3.6 L ABG Hemoglobin 12.8 ABG Carboxyhemoglobin 2.6 H POC ABG HHb (Measured) -0.6 L ABG Methemoglobin 1.7 Gianni Test Pos ABG Potassium A-a O2 Difference 140.0 Respiratory Index 0.8 Hgb O2 Saturation 96.3 Sodium 140 Chloride 110 H Glucose Lactate Vent Mode Prvc Mechanical Rate 16 FiO2 50.0 Tidal Volume 450 PEEP 5 Potassium 5.3 H Carbon Dioxide 16 L Anion Gap 20 BUN 15 Creatinine 0.6 L Est GFR ( Amer) > 60 Est GFR (Non-Af Amer) > 60 Random Glucose 165 H Calcium 9.3 Phosphorus 4.1 Magnesium 2.1 Total Bilirubin 1.3 AST 34 ALT < 6 L D Alkaline Phosphatase 62 Total Protein 9.2 H Albumin 3.6 Globulin 5.6 H Albumin/Globulin Ratio 0.7 L TSH 3rd Generation 0.28 L Arterial Blood Potassium Urine Color Urine Clarity Urine pH Ur Specific [place] Urine Protein Urine Glucose (UA) Urine Ketones Urine Blood Urine Nitrate Urine Bilirubin Urine Urobilinogen Ur Leukocyte Esterase Urine WBC (Auto) Urine RBC (Auto) Ur Squamous Epith Cells Urine Bacteria Hyaline Casts Urine HCG, Qual Negative 11/10/17 11/10/17 06:50 06:50 WBC 10.4 RBC 4.02 Hgb 12.0 Hct 35.2 MCV 87.6 MCH 29.9 MCHC 34.1 RDW 13.1 Plt Count 405 H MPV 6.9 L Neut % (Auto) 96.4 H Lymph % (Auto) 2.5 L [place] % (Auto) 0.9 Eos % (Auto) 0.0 Baso % (Auto) 0.2 Neut # (Auto) 10.1 H Lymph # (Auto) 0.3 L [place] # (Auto) 0.1 Eos # (Auto) 0.0 Baso # (Auto) 0.0 Neutrophils % (Manual) 95 H Band Neutrophils % Lymphocytes % (Manual) 2 L Monocytes % (Manual) 3 Eosinophils % (Manual) Platelet Estimate Normal Hypochromasia (manual) Microcytosis (manual) APTT 29 Puncture Site pCO2 pO2 HCO3 ABG pH ABG Total CO2 ABG O2 Saturation ABG Base Excess ABG Hemoglobin ABG Carboxyhemoglobin POC ABG HHb (Measured) ABG Methemoglobin Gianni Test ABG Potassium A-a O2 Difference Respiratory Index Hgb O2 Saturation Sodium Chloride Glucose Lactate Vent Mode Mechanical Rate FiO2 Tidal Volume PEEP Potassium Carbon Dioxide Anion Gap BUN Creatinine Est GFR ( Amer) Est GFR (Non-Af Amer) Random Glucose Calcium Phosphorus Magnesium Total Bilirubin AST ALT Alkaline Phosphatase Total Protein Albumin Globulin Albumin/Globulin Ratio TSH 3rd Generation Arterial Blood Potassium Urine Color Urine Clarity Urine pH Ur Specific [place] Urine Protein Urine Glucose (UA) Urine Ketones Urine Blood Urine Nitrate Urine Bilirubin Urine Urobilinogen Ur Leukocyte Esterase Urine WBC (Auto) Urine RBC (Auto) Ur Squamous Epith Cells Urine Bacteria Hyaline Casts Urine HCG, Qual EKG/Cardiology Studies: Cardiology / EKG Studies 11/09/17 16:21 ELECTROCARDIOGRAM Stat Comment: Mode Of Transportation: BED Reason For Exam: chest pain Critical Care Progress Note - Nutrition Nutrition: Nutrition Category Date Time Status Soft [Dysphagia/Modified Consistency Diet] [DIET] Diets 11/10/17 Dinner Active Attending/Attestation - Attestation I have personally seen and examined this patient.: Yes I have fully participated in the care of the patient.: Yes I have reviewed all pertinent clinical information: Yes Notes (Text): 11/10/17 17:06 PATIENT SEEN AND EXAMINED IN THE INTENSIVE CARE UNIT. Patient extubated after weaning trial Comfortable postextubation in no respiratory distress Continue immunoglobulins iV steroids and Mestinon
--- NOTE | 2017-11-10 09:08 | RAD ---
Chest x-ray single frontal view History: Respiratory distress. Comparison: 11/09/2017 Findings: Endotracheal tube extending into mid thoracic trachea. NG tube extending stomach. Mild to moderate venous congestion with bibasilar airspace opacities and moderate loculated right and small left pleural effusions. Elevated right hemidiaphragm. Diffuse increased interstitial lung markings. Upper lobe granulomatous changes. Status post median sternotomy. Mild cardiomegaly. Right hilar prominence. Bilateral breast prostheses. Degenerative changes in the spine and shoulders. Impression Endotracheal tube extending into mid thoracic trachea. NG tube extending stomach. Mild to moderate venous congestion with bibasilar airspace opacities and moderate loculated right and small left pleural effusions. Elevated right hemidiaphragm. Diffuse increased interstitial lung markings. Upper lobe granulomatous changes. Status post median sternotomy. Mild cardiomegaly. Right hilar prominence.
[2017-11-10] MEDS ORDERED: Immune Globulin 50 MG/ML (OCTAGAM 5%) 10 GM/200 ML IV SCH (10:00)
[2017-11-10] MEDS ORDERED: IMMUNE GLOBULIN 50 MG/ML IV SCH (10:00)
--- NOTE | 2017-11-10 10:42 | PN ---
DATE: 11/10/2017 NEUROLOGICAL PROBLEM: Myasthenia crisis with respiratory failure. PHYSICAL EXAMINATION: VITAL SIGNS: Blood pressure 117/74, mean arterial pressure of 87, respiratory rate 18, temperature afebrile with a pulse rate of 73 regular. GENERAL: The patient did sleep well, comfortable on vent. Arousable special education aide her first name. Communicable and follows all commands. She moves all four extremities against the gravity. She herself feels much better at present. NEUROLOGICAL: Extraocular movements decreased in all direction, left eye ptosis noted compared to the right side. Muscle weakness all related to her myasthenia gravis superimposed with her sedation. Deep tendon reflexes are 1+. Plantars are downgoing. LABORATORY DATA: Her CAT scan of the brain, which was reviewed, no acute pathology is noted. Her recent blood workup, her blood gases are stable with a pH of 7.4, pO2 175, pCO2 33 with bicarbonate 21.4 with oxygen saturation of 100.6. RECOMMENDATIONS: 1. Continue the prophylactic antibiotics. 2. The patient to get Octagam 0.4 gm per kg for the next four days. 3. Continue Mestinon with steroids at present. The patient will be followed by cook mess and possible extubation when she is stable. The patient will be followed closely with you. Sam Branch MD
[2017-11-10] MEDS: IMMUNE GLOBULIN 50 MG/ML IV SCH (11:44)
--- NOTE | 2017-11-10 12:28 | CT ---
PROCEDURE: CT Chest without contrast HISTORY: assess pleural effusion COMPARISON: None. TECHNIQUE: Contiguous axial images were obtained through the chest without intravenous contrast enhancement. Sagittal and coronal reconstructions were performed. Radiation dose (DLP): 411.8 mGy-cm. This CT exam was performed using one or more of the following dose reduction techniques: Automated exposure control, adjustment of the mA and/or kV according to patient size, and/or use of iterative reconstruction technique. FINDINGS: LUNGS: Left lower lobe subsegmental atelectasis. Right upper and lower lobe subsegmental atelectasis. Visualized airway clear. MEDIASTINUM: Unremarkable thoracic aorta. No aneurysm. Normal sized heart. Main pulmonary artery unremarkable. No vascular congestion. No lymphadenopathy. PLEURA: Small right pleural effusion. No pneumothorax. BONES: Prior sternotomy. No destructive lesion. UPPER ABDOMEN: Grossly unremarkable. OTHER FINDINGS: Endotracheal tube with tip between the clavicles and the kimberli. Enteric tube with tip in the stomach. Bilateral calcified breast prostheses IMPRESSION: Small right pleural effusion. Right upper and lower lobe subsegmental atelectasis. Left lower lobe subsegmental atelectasis. Endotracheal and enteric tubes in satisfactory position.
--- NOTE | 2017-11-10 12:53 | CARD ---
APPROVED REPORT EKG Measurement Heart [id number] <Conclusion> Supraventricular tachycardia Septal infarct, age undetermined Abnormal ECG
[2017-11-10] MEDS: Aritificial Tears (15ml) OU SCH ×2 (13:53→18:19)
[2017-11-10] MEDS ORDERED: Tramadol 25 mg PO ONE (21:59)
--- NOTE | 2017-11-10 23:10 | CP.PCM.PN ---
Subjective - Date & Time of Evaluation Date of Evaluation: 11/10/17 Time of Evaluation: 23:09 - Subjective Subjective: pt was intubated and now extubated sleeping vitals stable on IVIgG dvt and gi prophylaxis will f/u Objective - Vital Signs/Intake and Output Vital Signs (last 24 hours): Temp Pulse Resp BP Pulse Ox 98.2 F 82 25 H 103/63 98 11/10/17 20:00 11/10/17 22:00 11/10/17 22:00 11/10/17 21:57 11/10/17 22:00 Intake and Output: 11/10/17 11/11/17 18:59 06:59 Intake Total 360 442 Output Total 320 150 Balance 40 292 - Medications Medications: Current Medications Artificial Tears (Artificial Tears) 0 ml OU BID [facility] Last Admin: 11/10/17 18:19 Dose: 1 drop Heparin Sodium (Porcine) (Heparin) 5,000 units SC Q12H [facility] Last Admin: 11/10/17 21:55 Dose: 5,000 units Dexmedetomidine HCl 200 mcg/ (Sodium Chloride) 50 mls @ 3.2 mls/hr IV TITR PRN ; Protocol; 0.2 MCG/KG/HR PRN Reason: Agitation Last Admin: 11/10/17 09:44 Dose: 0.75 mcg/kg/hr, 12 mls/hr Immune Globulin (Octagam 5%) 500 mls @ 0 mls/hr IV DAILY DIONICIO PRN Reason: UD Stop: 11/13/17 10:01 Last Admin: 11/10/17 11:44 Dose: 48 mls/hr Methylprednisolone (Solu-Medrol) 125 mg IV Q8H [facility] Last Admin: 11/10/17 17:05 Dose: 125 mg Pantoprazole Sodium (Protonix Inj) 40 mg IVP DAILY [facility] Last Admin: 11/10/17 09:44 Dose: 40 mg - Labs Labs: 11/10/17 06:50 11/10/17 06:26 PT 12.3 SECONDS (9.7-12.2) H 11/09/17 16:25 INR 1.1 11/09/17 16:25 APTT 29 SECONDS (21-34) 11/10/17 06:50 Assessment and Plan (1) Myasthenia exacerbation Status: Acute (2) Acute respiratory failure with hypercapnia Status: Acute (3) Acute respiratory failure requiring reintubation Status: Acute (4) Myasthenia gravis status post thymectomy Status: Chronic
[2017-11-11 06:21] LABS: BASO % 0.1 % (0.0-2.0); HEMOGLOBIN 10.8 g/dL (11.0-16.0); LYMPH # 0.4 K/uL (1.0-4.3); LYMPH % 2.3 % (20.0-40.0); MEAN CELL VOLUME 88.2 fL (81.0-99.0); MEAN CORPUSCULAR HEMOGLOBIN 29.7 pg (27.0-31.0); MEAN CORPUSCULAR HGB CONC 33.6 g/dL (33.0-37.0); MEAN PLATELET VOLUME 7.5 fL (7.2-11.7); MONO # 0.6 K/uL (0.0-0.8); MONO % 4.2 % (0.0-10.0); NEUT # 14.1 K/uL (1.8-7.0); NEUT % 93.4 % (50.0-75.0); PLATELET COUNT 408 K/uL (130-400); RBC 3.65 Mil/uL (3.80-5.20); RED CELL DISTRIBUTION WIDTH 13.1 % (11.5-14.5); WHITE BLOOD COUNT 15.1 K/uL (4.8-10.8)
[2017-11-11 06:47] LABS: B-TYPE NATRIURETIC PEPTIDE 304 pg/mL (0-450)
[2017-11-11 06:52] LABS: ALB/GLOB RATIO 0.6 (1.0-2.1); ALBUMIN 3.5 g/dL (3.5-5.0); ALT/SGPT 9 U/L (9-52); AST/SGOT 19 U/L (14-36); BLOOD UREA NITROGEN 20 mg/dL (7-17); CALCIUM 8.8 mg/dl (8.6-10.4); GFR AFRICAN-AMERICAN > 60; GFR NON-AFRICAN AMERICAN > 60
[2017-11-11 08:24] LABS: LYMPHOCYTE 3 % (20-40); MONOCYTE 2 % (0-10); NEUTROPHIL 95 % (50-75); PLATELET ESTIMATE NORMAL (NORMAL); TOTAL CELLS COUNTED 100
[2017-11-11 08:25] LABS: ANISOCYTOSIS SLIGHT; HYPOCHROMIC SLIGHT; POIKILOCYTOSIS SLIGHT
[2017-11-11] MEDS: Pantoprazole 40 mg EC Tab PO SCH (10:14)
[2017-11-11] MEDS: Aritificial Tears (15ml) OU SCH ×2 (10:15→18:23)
--- NOTE | 2017-11-11 10:49 | PN ---
DATE: 11/11/2017 ATTENDING PHYSICIAN: Niles Ledezma MD LOCATION: Patient's room number is ICU bed 1. NEUROLOGICAL PROBLEM: Respiratory failure secondary to myasthenia gravis. Status post thymectomy, B1 thymoma. OBJECTIVE: VITAL SIGNS: Blood pressure 108/66, mean artery pressure of 83, respiratory rate 16, temperature afebrile with a pulse rate of 77. GENERAL: The patient comfortably sitting in the bed, using her phone. She slept good. Still complaining of generalized weakness, problem in swallow. She feels inability to force her food down, associating with pain. She slept good. No new weakness. HEENT: Examination shows left eye ptosis. Subjective double vision this morning; however, extraocular movements are full at present. Good gag at present. EXTREMITIES: Motor examination, neck flexions are 4/5. Muscle strength is 5/5 in all proximal and distal muscle groups. Deep tendon reflexes are 2+ on either side. Plantars are downgoing. Examination of the muscles, no fasciculation at rest. ASSESSMENT: Status post respiratory failure, myasthenia gravis exacerbation. Patient is on intravenous immunoglobulin with steroids and Mestinon. RECOMMENDATIONS: 1. Dysphagia, needs swallow evaluation. 2. 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 At this point, I would like to call in Heme-Oncology consult to assess her status of thymoma. The patient's condition has been well discussed and explained her problem and all questions has been answered at the bedside. The patient will be followed closely with you. Sam Branch MD
[2017-11-11] MEDS: IMMUNE GLOBULIN 50 MG/ML IV SCH (11:47)
--- NOTE | 2017-11-11 12:16 | CP.CCUPN ---
<Shabbir Ryan S - Last Filed: 11/11/17 12:16> CCU Subjective - Physician Review Subjective (Free Text): 11/10/17 08:44 Patient seen and examined. Intubated and sedated, currently with Precedex. Patient overnight was intermittently agitated but improved after switching from Diprivan to Precedex and some Ativan was given as well. 11/11/17 11:45 Patient seen and examined. Patient was extubated yesterday. Complaining of intermittent ptosis. No acute weakness noted. CCU Objective - Vital Signs / Intake & Output Intake and Output (Last 8hrs): Intake & Output 11/10/17 11/11/17 11/11/17 22:59 06:59 14:59 Intake Total 586 148 Output Total 215 200 Balance 371 -52 Weight 139 lb 8 oz Intake: Intake, IV Amount 336 48 Right Distal Port 336 48 Antecubital Oral 250 100 Output: Urine 215 200 Urethral ([place]anco) 215 200 Other: # Voids Urethral ([place]) 1 250 # Bowel Movements 1 1 - Physical Exam Head: Positive for: Atraumatic, Normocephalic Pupils: Positive for: PERRL Extroacular Muscles: Positive for: EOMI Conjunctiva: Positive for: Normal Mouth: Positive for: Moist Mucous Membranes Respiratory/Chest: Positive for: Clear to Auscultation. Negative for: Wheezes, Rales, Rhonchi Cardiovascular: Positive for: Regular Rate and Rhythm, Normal S1, S2 Abdomen: Positive for: Normal Bowel Sounds. Negative for: Tenderness Upper Extremity: Negative for: Edema Lower Extremity: Negative for: Edema Neurological: Positive for: GCS=15, CN II-XII Intact Skin: Positive for: Warm, Dry Psychiatric: Positive for: Alert, Oriented x 3 - Medications Active Medications: Active Medications Generic Name Dose Route Start Last Admin Trade Name Freq PRN Reason Stop Dose Admin Artificial Tears 0 ml 11/10/17 14:00 11/11/17 10:15 Artificial Tears OU 1 drop BID DIONICIO Administration Heparin Sodium (Porcine) 5,000 units 11/09/17 22:00 11/11/17 10:14 Heparin SC 5,000 units Q12H DIONICIO Administration Immune Globulin 500 mls @ 0 mls/hr 11/10/17 10:00 11/10/17 11:44 Octagam 5% IV 11/13/17 10:01 48 mls/hr DAILY DIONICIO Administration UD Methylprednisolone 125 mg 11/09/17 17:00 11/11/17 09:26 Solu-Medrol IV 125 mg Q8H DIONICIO Administration Pantoprazole Sodium 40 mg 11/11/17 10:00 11/11/17 10:14 Protonix Ec Tab PO 40 mg DAILY DIONICIO Administration - Patient Studies Lab Studies: Microbiology Studies 11/09/17 19:19 Gram Stain - Final Trachasp Sputum Culture - Final NORMAL ORAL JAEMS 11/09/17 16:52 Blood Culture - Preliminary Blood NO GROWTH AFTER 24 HOURS 11/09/17 16:55 Blood Culture - Preliminary Blood NO GROWTH AFTER 24 HOURS 11/09/17 17:04 MRSA Culture (Admit) - Final Naris MRSA NOT DETECTED 11/09/17 17:27 Urine Culture - Final Urine,Catheterized No Growth (<1,000 CFU/ML) Lab Studies 11/11/17 11/11/17 11/11/17 Range/Units 06:17 06:17 06:16 WBC 15.1 H (4.8-10.8) K/uL RBC 3.65 L (3.80-5.20) Mil/uL Hgb 10.8 L (11.0-16.0) g/dL Hct 32.2 L (34.0-47.0) % MCV 88.2 (81.0-99.0) fL MCH 29.7 (27.0-31.0) pg MCHC 33.6 (33.0-37.0) g/dL RDW 13.1 (11.5-14.5) % Plt Count 408 H (130-400) K/uL MPV 7.5 (7.2-11.7) fL Neut % (Auto) 93.4 H (50.0-75.0) % Lymph % (Auto) 2.3 L (20.0-40.0) % [place] % (Auto) 4.2 (0.0-10.0) % Eos % (Auto) 0.0 (0.0-4.0) % Baso % (Auto) 0.1 (0.0-2.0) % Neut # (Auto) 14.1 H (1.8-7.0) K/uL Lymph # (Auto) 0.4 L (1.0-4.3) K/uL [place] # (Auto) 0.6 (0.0-0.8) K/uL Eos # (Auto) 0.0 (0.0-0.7) K/uL Baso # (Auto) 0.0 (0.0-0.2) K/uL Neutrophils % (Manual) 95 H (50-75) % Lymphocytes % (Manual) 3 L (20-40) % Monocytes % (Manual) 2 (0-10) % Platelet Estimate Normal (NORMAL) Hypochromasia (manual) Slight Poikilocytosis (manual Slight Anisocytosis (manual) Slight Sodium 140 (132-148) mmol/L Potassium 4.5 (3.6-5.2) mmol/L Chloride 111 H (98-107) mmol/L Carbon Dioxide 19 L (22-30) mmol/L Anion Gap 14 (10-20) BUN 20 H (7-17) mg/dL Creatinine 0.6 L (0.7-1.2) mg/dL Est GFR ( Amer) > 60 Est GFR (Non-Af Amer) > 60 Random Glucose 140 H (65-105) mg/dL Calcium 8.8 (8.6-10.4) mg/dl Phosphorus 2.8 (2.5-4.5) mg/dL Magnesium 2.3 (1.6-2.3) mg/dL Total Bilirubin 1.4 H (0.2-1.3) mg/dL AST 19 (14-36) U/L ALT 9 D (9-52) U/L Alkaline Phosphatase 57 (38-126) U/L Lactate Dehydrogenase 406 (313-618) U/L NT-Pro-B Natriuret Pep 304 (0-450) pg/mL Total Protein 8.9 H (6.3-8.3) g/dL Albumin 3.5 (3.5-5.0) g/dL Globulin 5.4 H (2.2-3.9) gm/dL Albumin/Globulin Ratio 0.6 L (1.0-2.1) Free T4 0.85 (0.78-2.19) ng/dL TSH 3rd Generation (0.46-4.68) mIU/L 11/10/17 Range/Units 06:26 WBC (4.8-10.8) K/uL RBC (3.80-5.20) Mil/uL Hgb (11.0-16.0) g/dL Hct (34.0-47.0) % MCV (81.0-99.0) fL MCH (27.0-31.0) pg MCHC (33.0-37.0) g/dL RDW (11.5-14.5) % Plt Count (130-400) K/uL MPV (7.2-11.7) fL Neut % (Auto) (50.0-75.0) % Lymph % (Auto) (20.0-40.0) % [place] % (Auto) (0.0-10.0) % Eos % (Auto) (0.0-4.0) % Baso % (Auto) (0.0-2.0) % Neut # (Auto) (1.8-7.0) K/uL Lymph # (Auto) (1.0-4.3) K/uL [place] # (Auto) (0.0-0.8) K/uL Eos # (Auto) (0.0-0.7) K/uL Baso # (Auto) (0.0-0.2) K/uL Neutrophils % (Manual) (50-75) % Lymphocytes % (Manual) (20-40) % Monocytes % (Manual) (0-10) % Platelet Estimate (NORMAL) Hypochromasia (manual) Poikilocytosis (manual Anisocytosis (manual) Sodium 140 (132-148) mmol/L Potassium 5.3 H (3.6-5.2) mmol/L Chloride 110 H (98-107) mmol/L Carbon Dioxide 16 L (22-30) mmol/L Anion Gap 20 (10-20) BUN 15 (7-17) mg/dL Creatinine 0.6 L (0.7-1.2) mg/dL Est GFR ( Amer) > 60 Est GFR (Non-Af Amer) > 60 Random Glucose 165 H (65-105) mg/dL Calcium 9.3 (8.6-10.4) mg/dl Phosphorus 4.1 (2.5-4.5) mg/dL Magnesium 2.1 (1.6-2.3) mg/dL Total Bilirubin 1.3 (0.2-1.3) mg/dL AST 34 (14-36) U/L ALT < 6 L D (9-52) U/L Alkaline Phosphatase 62 (38-126) U/L Lactate Dehydrogenase (313-618) U/L NT-Pro-B Natriuret Pep (0-450) pg/mL Total Protein 9.2 H (6.3-8.3) g/dL Albumin 3.6 (3.5-5.0) g/dL Globulin 5.6 H (2.2-3.9) gm/dL Albumin/Globulin Ratio 0.7 L (1.0-2.1) Free T4 (0.78-2.19) ng/dL TSH 3rd Generation 0.28 L (0.46-4.68) mIU/L Laboratory Results - last 24 hr 11/10/17 11/11/17 11/11/17 06:26 06:16 06:17 WBC 15.1 H RBC 3.65 L Hgb 10.8 L Hct 32.2 L MCV 88.2 MCH 29.7 MCHC 33.6 RDW 13.1 Plt Count 408 H MPV 7.5 Neut % (Auto) 93.4 H Lymph % (Auto) 2.3 L [place] % (Auto) 4.2 Eos % (Auto) 0.0 Baso % (Auto) 0.1 Neut # (Auto) 14.1 H Lymph # (Auto) 0.4 L [place] # (Auto) 0.6 Eos # (Auto) 0.0 Baso # (Auto) 0.0 Neutrophils % (Manual) 95 H Lymphocytes % (Manual) 3 L Monocytes % (Manual) 2 Platelet Estimate Normal Hypochromasia (manual) Slight Poikilocytosis (manual Slight Anisocytosis (manual) Slight Sodium 140 140 Potassium 5.3 H 4.5 Chloride 110 H 111 H Carbon Dioxide 16 L 19 L Anion Gap 20 14 BUN 15 20 H Creatinine 0.6 L 0.6 L Est GFR ( Amer) > 60 > 60 Est GFR (Non-Af Amer) > 60 > 60 Random Glucose 165 H 140 H Calcium 9.3 8.8 Phosphorus 4.1 2.8 Magnesium 2.1 2.3 Total Bilirubin 1.3 1.4 H AST 34 19 ALT < 6 L D 9 D Alkaline Phosphatase 62 57 Lactate Dehydrogenase 406 NT-Pro-B Natriuret Pep 304 Total Protein 9.2 H 8.9 H Albumin 3.6 3.5 Globulin 5.6 H 5.4 H Albumin/Globulin Ratio 0.7 L 0.6 L Free T4 TSH 3rd Generation 0.28 L 11/11/17 06:17 WBC RBC Hgb Hct MCV MCH MCHC RDW Plt Count MPV Neut % (Auto) Lymph % (Auto) [place] % (Auto) Eos % (Auto) Baso % (Auto) Neut # (Auto) Lymph # (Auto) [place] # (Auto) Eos # (Auto) Baso # (Auto) Neutrophils % (Manual) Lymphocytes % (Manual) Monocytes % (Manual) Platelet Estimate Hypochromasia (manual) Poikilocytosis (manual Anisocytosis (manual) Sodium Potassium Chloride Carbon Dioxide Anion Gap BUN Creatinine Est GFR ( Amer) Est GFR (Non-Af Amer) Random Glucose Calcium Phosphorus Magnesium Total Bilirubin AST ALT Alkaline Phosphatase Lactate Dehydrogenase NT-Pro-B Natriuret Pep Total Protein Albumin Globulin Albumin/Globulin Ratio Free T4 0.85 TSH 3rd Generation Critical Care Progress Note - Nutrition Nutrition: Nutrition Category Date Time Status Soft [Dysphagia/Modified Consistency Diet] [DIET] Diets 11/10/17 Dinner Active Assessment/Plan - Assessment and Plan (Free Text) Assessment: This is a 47 year old female with PMHx Asthma, Thymoma s/p resection 6 weeks ago , myasthenia gravis (started after thymoma resection) who presented to the hospital sent in by Dr. Branch for shortness of breath. Patient diagnosed to be in myasthenia crisis and was subsequently intubated. Patient extubated the next day. Patient had thymoma resection on 09/27/17 at [facility] by Dr. Murphy. Per patient, weight of thymoma was 775 gm and biopsy revealed B1 thymoma. However, the patient's cytology from prior thoracentesis at [facility] showed malignant cells. Oncology was consulted. Will likely get another CT scan to assess for pulmonary nodules post thoracentesis. Neuro Assessment: Myasthenia Crisis Intubated and sedated on precedex Given first ever dose of IVIG on 11/09/17 at 1 mg/kg in the office. IVIG 0.4 mg/kg for 4 days starting 11/10/17 Solumedrol 125 mg IV Q8H Pyridostigmine 60 mg PO Q8H Cardio No active issues Pulm Assessment: Hx of Asthma, Recurrent pleural effusions Albuterol 1.25 mg Nebulizer Q6H DIONICIO Patient not good candidate for pleurex catheter and refuses pleurodesis GI Soft Diet Protonix 40 mg PO daily Modified Barium Swallow tomorrow per speech recommendation. Patient may remain on current diet. 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 Beltrán <Haroldo Beltrán - Last Filed: 11/11/17 13:40> CCU Objective - Vital Signs / Intake & Output Vital Signs (Last 4 hours): Vital Signs Pulse Resp BP Pulse Ox 11/11/17 11:00 110 H 33 H 11/11/17 09:57 104 H 34 H 105/71 97 Intake and Output (Last 8hrs): Intake & Output 11/10/17 11/11/17 11/11/17 22:59 06:59 14:59 Intake Total 586 148 348 Output Total 215 200 550 Balance 371 -52 -202 Weight 139 lb 8 oz Intake: Intake, IV Amount 336 48 48 Left Forearm 48 Right Distal Port 336 48 Antecubital Oral 250 100 300 Output: Drainage 350 Right Chest 350 Urine 215 200 200 Urethral ([place]) 215 200 200 Other: # Voids Urethral ([place]) 1 250 1 # Bowel Movements 1 1 - Medications Active Medications: Active Medications Generic Name Dose Route Start Last Admin Trade Name Freq PRN Reason Stop Dose Admin Artificial Tears 0 ml 11/10/17 14:00 11/11/17 10:15 Artificial Tears OU 1 drop BID DIONICIO Administration Heparin Sodium (Porcine) 5,000 units 11/09/17 22:00 11/11/17 10:14 Heparin SC 5,000 units Q12H DIONICIO Administration Immune Globulin 500 mls @ 0 mls/hr 11/10/17 10:00 11/11/17 11:47 Octagam 5% IV 11/13/17 10:01 48 mls/hr DAILY DIONICIO Administration UD Methylprednisolone 125 mg 11/09/17 17:00 11/11/17 09:26 Solu-Medrol IV 125 mg Q8H DIONICIO Administration Pantoprazole Sodium 40 mg 11/11/17 10:00 11/11/17 10:14 Protonix Ec Tab PO 40 mg DAILY DIONICIO Administration Pyridostigmine [place] 60 mg 11/11/17 13:00 Mestinon Tab PO Q8H DIONICIO - Patient Studies Lab Studies: Microbiology Studies 11/09/17 19:19 Gram Stain - Final Trachasp Sputum Culture - Final NORMAL ORAL JAMES 11/09/17 16:52 Blood Culture - Preliminary Blood NO GROWTH AFTER 24 HOURS 11/09/17 16:55 Blood Culture - Preliminary Blood NO GROWTH AFTER 24 HOURS 11/09/17 17:04 MRSA Culture (Admit) - Final Naris MRSA NOT DETECTED 11/09/17 17:27 Urine Culture - Final Urine,Catheterized No Growth (<1,000 CFU/ML) Lab Studies 11/11/17 11/11/17 11/11/17 Range/Units 06:17 06:17 06:16 WBC 15.1 H (4.8-10.8) K/uL RBC 3.65 L (3.80-5.20) Mil/uL Hgb 10.8 L (11.0-16.0) g/dL Hct 32.2 L (34.0-47.0) % MCV 88.2 (81.0-99.0) fL MCH 29.7 (27.0-31.0) pg MCHC 33.6 (33.0-37.0) g/dL RDW 13.1 (11.5-14.5) % Plt Count 408 H (130-400) K/uL MPV 7.5 (7.2-11.7) fL Neut % (Auto) 93.4 H (50.0-75.0) % Lymph % (Auto) 2.3 L (20.0-40.0) % [place] % (Auto) 4.2 (0.0-10.0) % Eos % (Auto) 0.0 (0.0-4.0) % Baso % (Auto) 0.1 (0.0-2.0) % Neut # (Auto) 14.1 H (1.8-7.0) K/uL Lymph # (Auto) 0.4 L (1.0-4.3) K/uL [place] # (Auto) 0.6 (0.0-0.8) K/uL Eos # (Auto) 0.0 (0.0-0.7) K/uL Baso # (Auto) 0.0 (0.0-0.2) K/uL Neutrophils % (Manual) 95 H (50-75) % Lymphocytes % (Manual) 3 L (20-40) % Monocytes % (Manual) 2 (0-10) % Platelet Estimate Normal (NORMAL) Hypochromasia (manual) Slight Poikilocytosis (manual Slight Anisocytosis (manual) Slight Sodium 140 (132-148) mmol/L Potassium 4.5 (3.6-5.2) mmol/L Chloride 111 H (98-107) mmol/L Carbon Dioxide 19 L (22-30) mmol/L Anion Gap 14 (10-20) BUN 20 H (7-17) mg/dL Creatinine 0.6 L (0.7-1.2) mg/dL Est GFR ( Amer) > 60 Est GFR (Non-Af Amer) > 60 Random Glucose 140 H (65-105) mg/dL Calcium 8.8 (8.6-10.4) mg/dl Phosphorus 2.8 (2.5-4.5) mg/dL Magnesium 2.3 (1.6-2.3) mg/dL Total Bilirubin 1.4 H (0.2-1.3) mg/dL AST 19 (14-36) U/L ALT 9 D (9-52) U/L Alkaline Phosphatase 57 (38-126) U/L Lactate Dehydrogenase 406 (313-618) U/L NT-Pro-B Natriuret Pep 304 (0-450) pg/mL Total Protein 8.9 H (6.3-8.3) g/dL Albumin 3.5 (3.5-5.0) g/dL Globulin 5.4 H (2.2-3.9) gm/dL Albumin/Globulin Ratio 0.6 L (1.0-2.1) Free T4 0.85 (0.78-2.19) ng/dL TSH 3rd Generation (0.46-4.68) mIU/L 11/10/17 Range/Units 06:26 WBC (4.8-10.8) K/uL RBC (3.80-5.20) Mil/uL Hgb (11.0-16.0) g/dL Hct (34.0-47.0) % MCV (81.0-99.0) fL MCH (27.0-31.0) pg MCHC (33.0-37.0) g/dL RDW (11.5-14.5) % Plt Count (130-400) K/uL MPV (7.2-11.7) fL Neut % (Auto) (50.0-75.0) % Lymph % (Auto) (20.0-40.0) % [place] % (Auto) (0.0-10.0) % Eos % (Auto) (0.0-4.0) % Baso % (Auto) (0.0-2.0) % Neut # (Auto) (1.8-7.0) K/uL Lymph # (Auto) (1.0-4.3) K/uL [place] # (Auto) (0.0-0.8) K/uL Eos # (Auto) (0.0-0.7) K/uL Baso # (Auto) (0.0-0.2) K/uL Neutrophils % (Manual) (50-75) % Lymphocytes % (Manual) (20-40) % Monocytes % (Manual) (0-10) % Platelet Estimate (NORMAL) Hypochromasia (manual) Poikilocytosis (manual Anisocytosis (manual) Sodium (132-148) mmol/L Potassium (3.6-5.2) mmol/L Chloride (98-107) mmol/L Carbon Dioxide (22-30) mmol/L Anion Gap (10-20) BUN (7-17) mg/dL Creatinine (0.7-1.2) mg/dL Est GFR ( Amer) Est GFR (Non-Af Amer) Random Glucose (65-105) mg/dL Calcium (8.6-10.4) mg/dl Phosphorus (2.5-4.5) mg/dL Magnesium (1.6-2.3) mg/dL Total Bilirubin (0.2-1.3) mg/dL AST (14-36) U/L ALT (9-52) U/L Alkaline Phosphatase (38-126) U/L Lactate Dehydrogenase (313-618) U/L NT-Pro-B Natriuret Pep (0-450) pg/mL Total Protein (6.3-8.3) g/dL Albumin (3.5-5.0) g/dL Globulin (2.2-3.9) gm/dL Albumin/Globulin Ratio (1.0-2.1) Free T4 (0.78-2.19) ng/dL TSH 3rd Generation 0.28 L (0.46-4.68) mIU/L Laboratory Results - last 24 hr 11/10/17 11/11/17 11/11/17 06:26 06:16 06:17 WBC 15.1 H RBC 3.65 L Hgb 10.8 L Hct 32.2 L MCV 88.2 MCH 29.7 MCHC 33.6 RDW 13.1 Plt Count 408 H MPV 7.5 Neut % (Auto) 93.4 H Lymph % (Auto) 2.3 L [place] % (Auto) 4.2 Eos % (Auto) 0.0 Baso % (Auto) 0.1 Neut # (Auto) 14.1 H Lymph # (Auto) 0.4 L [place] # (Auto) 0.6 Eos # (Auto) 0.0 Baso # (Auto) 0.0 Neutrophils % (Manual) 95 H Lymphocytes % (Manual) 3 L Monocytes % (Manual) 2 Platelet Estimate Normal Hypochromasia (manual) Slight Poikilocytosis (manual Slight Anisocytosis (manual) Slight Sodium 140 Potassium 4.5 Chloride 111 H Carbon Dioxide 19 L Anion Gap 14 BUN 20 H Creatinine 0.6 L Est GFR ( Amer) > 60 Est GFR (Non-Af Amer) > 60 Random Glucose 140 H Calcium 8.8 Phosphorus 2.8 Magnesium 2.3 Total Bilirubin 1.4 H AST 19 ALT 9 D Alkaline Phosphatase 57 Lactate Dehydrogenase 406 NT-Pro-B Natriuret Pep 304 Total Protein 8.9 H Albumin 3.5 Globulin 5.4 H Albumin/Globulin Ratio 0.6 L Free T4 TSH 3rd Generation 0.28 L 11/11/17 06:17 WBC RBC Hgb Hct MCV MCH MCHC RDW Plt Count MPV Neut % (Auto) Lymph % (Auto) [place] % (Auto) Eos % (Auto) Baso % (Auto) Neut # (Auto) Lymph # (Auto) [place] # (Auto) Eos # (Auto) Baso # (Auto) Neutrophils % (Manual) Lymphocytes % (Manual) Monocytes % (Manual) Platelet Estimate Hypochromasia (manual) Poikilocytosis (manual Anisocytosis (manual) Sodium Potassium Chloride Carbon Dioxide Anion Gap BUN Creatinine Est GFR ( Amer) Est GFR (Non-Af Amer) Random Glucose Calcium Phosphorus Magnesium Total Bilirubin AST ALT Alkaline Phosphatase Lactate Dehydrogenase NT-Pro-B Natriuret Pep Total Protein Albumin Globulin Albumin/Globulin Ratio Free T4 0.85 TSH 3rd Generation Critical Care Progress Note - Nutrition Nutrition: Nutrition Category Date Time Status Soft [Dysphagia/Modified Consistency Diet] [DIET] Diets 11/10/17 Dinner Active Attending/Attestation - Attestation I have personally seen and examined this patient.: Yes I have fully participated in the care of the patient.: Yes I have reviewed all pertinent clinical information: Yes Notes (Text): 11/11/17 13:12 I have seen and examined the patient. Medical records, lab studies, and imaging were reviewed by me and a management plan was formulated on multidisciplinary rounds with resident Dr. Ryan. I agree with their documented assessment and plan. The patient had another episode of SOB overnight. Underwent thoracentesis today , removal ~300ml. Consulted hem/onc, possible metastatic thymoma. Continuing treatment for myasthenia gravis, pyridostigmine, steroids and IVIG. 82% on Vital Capacity today. Critical Care Time 35 minutes. Multi-disciplinary rounds were performed with house staff, nursing, speech therapy, respiratory therapy, pharmacy and nutrition with integrated input from the primary team/attending and other consulting services. The documented time is cumulative and includes review of patient data/exams/labs/chart review and examination of the patient on rounds and throughout the day; time is exclusive of any procedures or teaching time.
--- NOTE | 2017-11-11 12:17 | PCM.SURG1 ---
Surgeon's Initial Post Op Note - Surgeon's Notes Surgeon: Sergei Luevano MD Seat Maker: NONE Type of Anesthesia: Local Pre-Operative Diagnosis: Right pleural effusion Operative Findings: US showed a small right effusion Post-Operative Diagnosis: Right pleural effusion Operation Performed: US guided right thoracentesis Specimen/Specimens Removed: 300 cc of straw colored fluid Estimated Blood Loss: EBL {In ML}: 0 Blood Products Given: N/A Drains Used: No Drains Post-Op Condition: Fair Date of Surgery/Procedure: 11/11/17 Time of Surgery/Procedure: 12:15
--- NOTE | 2017-11-11 12:33 | US ---
PROCEDURE: Date of procedure: 11/11/2017 Procedure: 1. Ultrasound-guided Right thoracentesis, CPT 78259 Medications: 6cc 1% Lidocaine HISTORY: Right pleural effusion, shortness of breath TECHNIQUE: Following informed consent ,the Patients' right chest was marked. Procedure time-out was called, and the patient was placed in the sitting position and limited ultrasound showed a small right effusion. The patient's right back was prepped and draped in the usual sterile fashion. After the skin was anesthetized with lidocaine, a drainage catheter was advanced under ultrasound guidance into the pleural space. Ultrasound-guided thoracentesis was performed. A total of 300 cubic centimeters of straw-colored fluid removed without complication. A Xeroform dressing was applied. IMPRESSION: Ultrasound guided Right thoracentesis. There were no immediate complications.
--- NOTE | 2017-11-11 12:41 | RAD ---
Chest x-ray single frontal view History: Status post right thoracentesis, Comparison: 11/10/2017 Findings: Patient has been extubated. Lungs are clear. There is blunting of the right costophrenic margin from a small pleural effusion. There is no pneumothorax following thoracentesis. Elevated right hemidiaphragm. Status post median sternotomy. Mild cardiomegaly. Bilateral breast prostheses. Impression No pneumothorax following right thoracentesis. There is blunting of the right costophrenic margin from a very small residual fluid.
--- NOTE | 2017-11-11 16:24 | CP.PCM.CON ---
History of Present Illness - History of Present Illness History of Present Illness: Surgery: Dr. Artis Reason for consult: recurrent pleural effusion, right in setting of recent thymoma resection CC: SOB HPI: Patient is a 41 y/o female w/ pmhx of asthma, MG, and thymoma resection 6 weeks prior to presentation, presented to [facility] [place] ED complaining of worsening SOB. Patient had received first dose of IVIG for MG same day as presentation. Patient respiratory status declined requiring intubation. Over the past few days , patient received IVIG and was successfully extubated. She reports SOB, improved overall at this time. She has had 4 thoracentesis in the past 6 weeks for recurrent pleural effusions on the right chest; most recent thoracentesis being today. Pathology from prior thoracentesis was + for thymoma cells. She denies f/c, weight loss, loss of appetite. 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 absent: Cough, Hemoptysis - Gastrointestinal Gastrointestinal: absent: Abdominal Pain, Bloating, Vomiting - Genitourinary Genitourinary: absent: Difficulty Urinating, Hematuria - Musculoskeletal Musculoskeletal: absent: Back Pain, Neck Pain - Integumentary Integumentary: absent: Acne, Sores - Neurological Neurological: absent: Disequilibrium, Dizziness, Headaches - Psychiatric Psychiatric: absent: Anxiety, Depression - Endocrine Endocrine: absent: Polydipsia, Polyphagia Past Patient History - Infectious Disease Hx of Infectious Diseases: None - Tetanus Immunizations Tetanus Immunization: Unknown - Past Social History Smoking Status: Never Smoked - CARDIAC Hx Pacemaker: No - PULMONARY Hx Asthma: Yes - NEUROLOGICAL Hx Neurological Disorder: No - HEENT Hx HEENT Problems: No - RENAL Hx Chronic Kidney Disease: No - ENDOCRINE/METABOLIC Hx Endocrine Disorders: No - HEMATOLOGICAL/ONCOLOGICAL Hx Blood Disorders: No - INTEGUMENTARY Hx Dermatological Problems: No - MUSCULOSKELETAL/RHEUMATOLOGICAL Hx Musculoskeletal Disorders: No Hx Myasthenia Gravis: Yes - GASTROINTESTINAL Hx Gastrointestinal Disorders: No - GENITOURINARY/GYNECOLOGICAL Hx Genitourinary Disorders: No - PSYCHIATRIC Hx Anxiety: Yes Hx Depression: Yes Hx Substance Use: No - SURGICAL HISTORY Hx Appendectomy: Yes - ANESTHESIA Hx Anesthesia: Yes Hx Anesthesia Reactions: Yes (TROUBLE WAKING) Hx Malignant Hyperthermia: No Meds Allergies/Adverse Reactions: Allergies Allergy/AdvReac Type Severity Reaction Status Date / Time cephalexin [From Keflex] Allergy Severe RASH Verified 11/01/17 20:57 codeine Allergy Severe RASH/SOB Verified 11/01/17 20:57 Iodine and Iodide Containing Allergy Severe ANAPHYLAXIS Verified 11/01/17 20:57 Produc latex Allergy Severe ANAPHYLAXIS Verified 11/01/17 20:57 peanut Allergy Severe ANAPHYLAXIS Verified 11/01/17 20:57 Penicillins Allergy Severe RASH/SOB Verified 11/01/17 20:57 shellfish derived Allergy ANAPHYLAXIS Verified 11/01/17 20:57 - Medications Medications: Current Medications Artificial Tears (Artificial Tears) 0 ml OU BID [facility] Last Admin: 11/11/17 10:15 Dose: 1 drop Heparin Sodium (Porcine) (Heparin) 5,000 units SC Q12H [facility] Last Admin: 11/11/17 10:14 Dose: 5,000 units Immune Globulin (Octagam 5%) 500 mls @ 0 mls/hr IV DAILY [facility] PRN Reason: UD Stop: 11/13/17 10:01 Last Admin: 11/11/17 11:47 Dose: 48 mls/hr Methylprednisolone (Solu-Medrol) 125 mg IV Q8H [facility] Last Admin: 11/11/17 09:26 Dose: 125 mg Pantoprazole Sodium (Protonix Ec Tab) 40 mg PO DAILY [facility] Last Admin: 11/11/17 10:14 Dose: 40 mg Pyridostigmine [place] (Mestinon Tab) 60 mg PO Q8H [facility] Last Admin: 11/11/17 13:31 Dose: 60 mg Physical Exam - Constitutional Appears: Non-toxic, No Acute Distress - Head Exam Head Exam: ATRAUMATIC, NORMOCEPHALIC - Eye Exam Eye Exam: EOMI, Normal appearance - ENT Exam ENT Exam: Mucous Membranes Moist - Respiratory Exam Respiratory Exam: NORMAL BREATHING PATTERN. absent: Respiratory Distress - Cardiovascular Exam Cardiovascular Exam: REGULAR RHYTHM. absent: Tachycardia - GI/Abdominal Exam GI & Abdominal Exam: Soft. absent: Distended, Tenderness - Extremities Exam Extremities exam: Positive for: normal inspection. Negative for: calf tenderness - Neurological Exam Neurological exam: Alert, Oriented x3 - Psychiatric Exam Psychiatric exam: Normal Affect, Normal Mood Results - Vital Signs Recent Vital Signs: Last Vital Signs Temp 97.9 F 11/11/17 12:00 Pulse 87 11/11/17 15:57 Resp 26 H 11/11/17 15:57 BP 143/84 11/11/17 15:57 Pulse Ox 97 11/11/17 15:57 - Labs Result Diagrams: 11/11/17 06:16 11/11/17 06:17 Labs: Laboratory Results - last 24 hr 11/11/17 11/11/17 11/11/17 06:16 06:17 06:17 WBC 15.1 H RBC 3.65 L Hgb 10.8 L Hct 32.2 L MCV 88.2 MCH 29.7 MCHC 33.6 RDW 13.1 Plt Count 408 H MPV 7.5 Neut % (Auto) 93.4 H Lymph % (Auto) 2.3 L [place] % (Auto) 4.2 Eos % (Auto) 0.0 Baso % (Auto) 0.1 Neut # (Auto) 14.1 H Lymph # (Auto) 0.4 L [place] # (Auto) 0.6 Eos # (Auto) 0.0 Baso # (Auto) 0.0 Neutrophils % (Manual) 95 H Lymphocytes % (Manual) 3 L Monocytes % (Manual) 2 Platelet Estimate Normal Hypochromasia (manual) Slight Poikilocytosis (manual Slight Anisocytosis (manual) Slight Sodium 140 Potassium 4.5 Chloride 111 H Carbon Dioxide 19 L Anion Gap 14 BUN 20 H Creatinine 0.6 L Est GFR ( Amer) > 60 Est GFR (Non-Af Amer) > 60 Random Glucose 140 H Calcium 8.8 Phosphorus 2.8 Magnesium 2.3 Total Bilirubin 1.4 H AST 19 ALT 9 D Alkaline Phosphatase 57 Lactate Dehydrogenase 406 NT-Pro-B Natriuret Pep 304 Total Protein 8.9 H Albumin 3.5 Globulin 5.4 H Albumin/Globulin Ratio 0.6 L Free T4 0.85 Assessment & Plan - Assessment and Plan (Free Text) Assessment: 41 y/o female w/ recurrent pleural effusion, right w/ history of thymoma resection Plan: -need records from recent surgery as well as pathology, Dr. Murphy contacted -if malignant thymoma and effusion, will most likely need to f/u with primary surgeon for further care which patient prefers to do in surgical intervention is required -symptomatic treatment at this time -ICU management -no acute surgical intervention -d/w Dr. Steff Loyola PGY3
--- NOTE | 2017-11-11 23:06 | CP.PCM.PN ---
Subjective - Date & Time of Evaluation Date of Evaluation: 11/11/17 Time of Evaluation: 09:21 - Subjective Subjective: The patient extubated. Currently doing well. Receiving intravenous immunoglobulins. Still having exertional dyspnea, weakness sometimes. But able to complete sentences without any difficulty On examination: Vital signs stable. Chest good air entry bilaterally regular Nontender Abdomen. Patient Has a Thoracentesis Done, 1 L of [place]rellita-colored Fluid Emptied out Patient Is Currently Feeling Better. I Spoke to the Thoracic Surgeon Who Did the Procedure, Dr. Murphy will taken of the recurrent pleural effusion in his office Assessment and recommendation: 47-year-old female admitted to the hospital with a possible acute exacerbation of myasthenia gravis, currently stable. We will continue the current treatment. Currently receiving immunoglobulin IgG. DVT, GI prophylaxis. Once cleared by neurologically, patient will be discharged after the completion of the treatment. Objective - Vital Signs/Intake and Output Vital Signs (last 24 hours): Temp Pulse Resp BP Pulse Ox 98.1 F 85 30 H 164/101 H 97 11/11/17 20:00 11/11/17 22:00 11/11/17 22:00 11/11/17 21:58 11/11/17 22:00 Intake and Output: 11/11/17 11/12/17 18:59 06:59 Intake Total 1236 480 Output Total 800 250 Balance 436 230 - Medications Medications: Current Medications Artificial Tears (Artificial Tears) 0 ml OU BID [facility] Last Admin: 11/11/17 18:23 Dose: 1 drop Heparin Sodium (Porcine) (Heparin) 5,000 units SC Q12H [facility] Last Admin: 11/11/17 21:20 Dose: 5,000 units Immune Globulin (Octagam 5%) 500 mls @ 0 mls/hr IV DAILY [facility] PRN Reason: UD Stop: 11/13/17 10:01 Last Admin: 11/11/17 11:47 Dose: 48 mls/hr Methylprednisolone (Solu-Medrol) 125 mg IV Q8H [facility] Last Admin: 11/11/17 18:15 Dose: 125 mg Pantoprazole Sodium (Protonix Ec Tab) 40 mg PO DAILY [facility] Last Admin: 11/11/17 10:14 Dose: 40 mg Pyridostigmine [place] (Mestinon Tab) 60 mg PO Q8H [facility] Last Admin: 11/11/17 21:20 Dose: 60 mg - Labs Labs: 11/11/17 06:16 11/11/17 06:17 PT 12.3 SECONDS (9.7-12.2) H 11/09/17 16:25 INR 1.1 11/09/17 16:25 APTT 29 SECONDS (21-34) 11/10/17 06:50 Assessment and Plan (1) Myasthenia exacerbation Status: Acute (2) Acute respiratory failure with hypercapnia Status: Acute (3) Acute respiratory failure requiring reintubation Status: Acute (4) Myasthenia gravis status post thymectomy Status: Chronic
[2017-11-12 06:35] LABS: BASO % 0.3 % (0.0-2.0); HEMOGLOBIN 10.7 g/dL (11.0-16.0); LYMPH # 0.4 K/uL (1.0-4.3); LYMPH % 3.9 % (20.0-40.0); MEAN CELL VOLUME 86.7 fL (81.0-99.0); MEAN CORPUSCULAR HEMOGLOBIN 29.5 pg (27.0-31.0); MEAN CORPUSCULAR HGB CONC 34.1 g/dL (33.0-37.0); MEAN PLATELET VOLUME 7.5 fL (7.2-11.7); MONO # 0.4 K/uL (0.0-0.8); MONO % 3.4 % (0.0-10.0); NEUT # 9.7 K/uL (1.8-7.0); NEUT % 92.4 % (50.0-75.0); PLATELET COUNT 411 K/uL (130-400); RBC 3.62 Mil/uL (3.80-5.20); RED CELL DISTRIBUTION WIDTH 12.9 % (11.5-14.5); WHITE BLOOD COUNT 10.5 K/uL (4.8-10.8)
[2017-11-12 06:56] LABS: ALB/GLOB RATIO 0.6 (1.0-2.1); ALBUMIN 3.4 g/dL (3.5-5.0); ALT/SGPT < 6 U/L (9-52); AST/SGOT 23 U/L (14-36); BLOOD UREA NITROGEN 19 mg/dL (7-17); CALCIUM 8.5 mg/dl (8.6-10.4); GFR AFRICAN-AMERICAN > 60; GFR NON-AFRICAN AMERICAN > 60
[2017-11-12 08:22] LABS: HYPOCHROMIC SLIGHT; LYMPHOCYTE 3 % (20-40); MONOCYTE 5 % (0-10); NEUTROPHIL 92 % (50-75); PLATELET ESTIMATE NORMAL (NORMAL); TOTAL CELLS COUNTED 100
[2017-11-12] MEDS: Albuterol-Ipratrop 3 mg / 0.5 (3 ml) UD INH PRN ×2 (08:33→18:50)
[2017-11-12] MEDS ORDERED: Iohexol 240 200 ML ONE (08:35)
[2017-11-12] MEDS ORDERED: Barium Sulfate Susp 0.1% w/v, 0.1% w/w 450 mL Bottle PO ONE (08:35)
--- NOTE | 2017-11-12 08:57 | CP.PCM.PN ---
Subjective - Date & Time of Evaluation Date of Evaluation: 11/12/17 Time of Evaluation: 08:54 - Subjective Subjective: Surgery: Dr. Artis Patient reports feeling tired this am but overall doing well. She complains of mild SOB but believes that is due to her healing sternotomy. She has no other complaints at this time. Objective - Vital Signs/Intake and Output Vital Signs (last 24 hours): Temp Pulse Resp BP Pulse Ox 98.2 F 65 22 141/84 96 11/12/17 04:00 11/12/17 07:59 11/12/17 07:59 11/12/17 07:59 11/12/17 06:58 Intake and Output: 11/12/17 11/12/17 06:59 18:59 Intake Total 920 0 Output Total 850 250 Balance 70 -250 - Medications Medications: Current Medications Albuterol/Ipratropium (Duoneb 3 Mg/0.5 Mg (3 Ml) Ud) 3 ml INH RQ4 PRN PRN Reason: Shortness of Breath Last Admin: 11/12/17 08:33 Dose: 3 ml Artificial Tears (Artificial Tears) 0 ml OU BID [facility] Last Admin: 11/11/17 18:23 Dose: 1 drop Heparin Sodium (Porcine) (Heparin) 5,000 units SC Q12H [facility] Last Admin: 11/11/17 21:20 Dose: 5,000 units Immune Globulin (Octagam 5%) 500 mls @ 0 mls/hr IV DAILY [facility] PRN Reason: UD Stop: 11/13/17 10:01 Last Admin: 11/11/17 11:47 Dose: 48 mls/hr Methylprednisolone (Solu-Medrol) 125 mg IV Q8H [facility] Last Admin: 11/12/17 08:50 Dose: 125 mg Pantoprazole Sodium (Protonix Ec Tab) 40 mg PO DAILY [facility] Last Admin: 11/11/17 10:14 Dose: 40 mg Pyridostigmine [place] (Mestinon Tab) 60 mg PO Q8H [facility] Last Admin: 11/12/17 04:59 Dose: 60 mg - Labs Labs: 11/12/17 06:27 11/12/17 06:28 PT 12.3 SECONDS (9.7-12.2) H 11/09/17 16:25 INR 1.1 11/09/17 16:25 APTT 29 SECONDS (21-34) 11/10/17 06:50 - Constitutional Appears: Non-toxic, No Acute Distress - Head Exam Head Exam: ATRAUMATIC, NORMOCEPHALIC - Eye Exam Eye Exam: EOMI, Normal appearance - ENT Exam ENT Exam: Mucous Membranes Moist - Respiratory Exam Respiratory Exam: NORMAL BREATHING PATTERN. absent: Respiratory Distress Additional comments: stenotomy scar well healing - Cardiovascular Exam Cardiovascular Exam: Tachycardia, REGULAR RHYTHM - GI/Abdominal Exam GI & Abdominal Exam: Soft. absent: Distended, Tenderness - Neurological Exam Neurological Exam: Alert, Awake, Oriented x3 - Psychiatric Exam Psychiatric exam: Normal Affect, Normal Mood - Skin Skin Exam: Dry, Normal Color, Warm Assessment and Plan - Assessment and Plan (Free Text) Assessment: 47 y/o female w/ pleural effusion s/p Thymoma resection, Type B1 nonmalignant Plan: -discussed case with primary CT surgeon who states pathology was Type B1, nonmalignant thymoma -due to large size of thymoma, thymoma cells in pleural fluid could be from spillage intraoperatively -Patient is instructed to f/u with primary CT surgeon for further f/u and treatment which patient prefers -no acute surgical intervention required at this time -d/w Dr. Artis and Dr Murphy primary CT surgeon AKWhite PGY3
--- NOTE | 2017-11-12 09:25 | CP.CCUPN ---
CCU Subjective - Physician Review Subjective (Free Text): 11/10/17 08:44 Patient seen and examined. Intubated and sedated, currently with Precedex. Patient overnight was intermittently agitated but improved after switching from Diprivan to Precedex and some Ativan was given as well. 11/11/17 11:45 Patient seen and examined. Patient was extubated yesterday. Complaining of intermittent ptosis. No acute weakness noted. 11/12/17 09:13 Patient seen and examined. Ptosis improved. Patient with some wheezing this morning. CCU Objective - Vital Signs / Intake & Output Vital Signs (Last 4 hours): Vital Signs Pulse Resp BP Pulse Ox 11/12/17 09:01 96 11/12/17 07:59 65 22 141/84 11/12/17 06:58 65 25 H 126/67 96 11/12/17 05:57 72 19 135/81 95 Intake and Output (Last 8hrs): Intake & Output 11/11/17 11/12/17 11/12/17 22:59 06:59 14:59 Intake Total 672 680 0 Output Total 250 600 250 Balance 422 80 -250 Intake: Intake, IV Amount 432 Left Forearm 432 Oral 240 680 0 Output: Urine 250 600 250 Urine, Voided 250 600 250 Other: # Bowel Movements 1 0 1 - Physical Exam Head: Positive for: Atraumatic, Normocephalic Pupils: Positive for: PERRL Extroacular Muscles: Positive for: EOMI Conjunctiva: Positive for: Normal Mouth: Positive for: Moist Mucous Membranes Respiratory/Chest: Positive for: Clear to Auscultation, Wheezes. Negative for: Rales, Rhonchi Cardiovascular: Positive for: Regular Rate and Rhythm, Normal S1, S2 Abdomen: Positive for: Normal Bowel Sounds. Negative for: Tenderness Upper Extremity: Negative for: Edema Lower Extremity: Negative for: Edema Neurological: Positive for: GCS=15, CN II-XII Intact Skin: Positive for: Warm, Dry Psychiatric: Positive for: Alert, Oriented x 3 - Medications Active Medications: Active Medications Generic Name Dose Route Start Last Admin Trade Name Freq PRN Reason Stop Dose Admin Albuterol/Ipratropium 3 ml 11/12/17 08:09 11/12/17 08:33 Duoneb 3 Mg/0.5 Mg (3 Ml) Ud INH 3 ml RQ4 PRN Administration Shortness of Breath Artificial Tears 0 ml 11/10/17 14:00 11/11/17 18:23 Artificial Tears OU 1 drop BID [facility] Administration Heparin Sodium (Porcine) 5,000 units 11/09/17 22:00 11/11/17 21:20 Heparin SC 5,000 units Q12H [facility] Administration Immune Globulin 500 mls @ 0 mls/hr 11/10/17 10:00 11/11/17 11:47 Octagam 5% IV 11/13/17 10:01 48 mls/hr DAILY [facility] Administration UD Methylprednisolone 125 mg 11/09/17 17:00 11/12/17 08:50 Solu-Medrol IV 125 mg Q8H [facility] Administration Pantoprazole Sodium 40 mg 11/11/17 10:00 11/11/17 10:14 Protonix Ec Tab PO 40 mg DAILY [facility] Administration Pyridostigmine [place] 60 mg 11/11/17 13:00 11/12/17 04:59 Mestinon Tab PO 60 mg Q8H [facility] Administration - Patient Studies Lab Studies: Microbiology Studies 11/09/17 16:52 Blood Culture - Preliminary Blood NO GROWTH AFTER 48 HOURS 11/09/17 16:55 Blood Culture - Preliminary Blood NO GROWTH AFTER 48 HOURS 11/09/17 19:19 Gram Stain - Final Trachasp Sputum Culture - Final NORMAL ORAL JAMES Lab Studies 11/12/17 11/12/17 Range/Units 06:28 06:27 WBC 10.5 (4.8-10.8) K/uL RBC 3.62 L (3.80-5.20) Mil/uL Hgb 10.7 L (11.0-16.0) g/dL Hct 31.4 L (34.0-47.0) % MCV 86.7 (81.0-99.0) fL MCH 29.5 (27.0-31.0) pg MCHC 34.1 (33.0-37.0) g/dL RDW 12.9 (11.5-14.5) % Plt Count 411 H (130-400) K/uL MPV 7.5 (7.2-11.7) fL Neut % (Auto) 92.4 H (50.0-75.0) % Lymph % (Auto) 3.9 L (20.0-40.0) % [place] % (Auto) 3.4 (0.0-10.0) % Eos % (Auto) 0.0 (0.0-4.0) % Baso % (Auto) 0.3 (0.0-2.0) % Neut # (Auto) 9.7 H (1.8-7.0) K/uL Lymph # (Auto) 0.4 L (1.0-4.3) K/uL [place] # (Auto) 0.4 (0.0-0.8) K/uL Eos # (Auto) 0.0 (0.0-0.7) K/uL Baso # (Auto) 0.0 (0.0-0.2) K/uL Neutrophils % (Manual) 92 H (50-75) % Lymphocytes % (Manual) 3 L (20-40) % Monocytes % (Manual) 5 (0-10) % Platelet Estimate Normal (NORMAL) Hypochromasia (manual) Slight Sodium 141 (132-148) mmol/L Potassium 4.0 (3.6-5.2) mmol/L Chloride 109 H (98-107) mmol/L Carbon Dioxide 22 (22-30) mmol/L Anion Gap 14 (10-20) BUN 19 H (7-17) mg/dL Creatinine 0.6 L (0.7-1.2) mg/dL Est GFR ( Amer) > 60 Est GFR (Non-Af Amer) > 60 Random Glucose 130 H (65-105) mg/dL Calcium 8.5 L (8.6-10.4) mg/dl Phosphorus 3.2 (2.5-4.5) mg/dL Magnesium 2.1 (1.6-2.3) mg/dL Total Bilirubin 1.8 H (0.2-1.3) mg/dL AST 23 (14-36) U/L ALT < 6 L D (9-52) U/L Alkaline Phosphatase 56 (38-126) U/L Total Protein 8.8 H (6.3-8.3) g/dL Albumin 3.4 L (3.5-5.0) g/dL Globulin 5.4 H (2.2-3.9) gm/dL Albumin/Globulin Ratio 0.6 L (1.0-2.1) Laboratory Results - last 24 hr 11/12/17 11/12/17 06:27 06:28 WBC 10.5 RBC 3.62 L Hgb 10.7 L Hct 31.4 L MCV 86.7 MCH 29.5 MCHC 34.1 RDW 12.9 Plt Count 411 H MPV 7.5 Neut % (Auto) 92.4 H Lymph % (Auto) 3.9 L [place] % (Auto) 3.4 Eos % (Auto) 0.0 Baso % (Auto) 0.3 Neut # (Auto) 9.7 H Lymph # (Auto) 0.4 L [place] # (Auto) 0.4 Eos # (Auto) 0.0 Baso # (Auto) 0.0 Neutrophils % (Manual) 92 H Lymphocytes % (Manual) 3 L Monocytes % (Manual) 5 Platelet Estimate Normal Hypochromasia (manual) Slight Sodium 141 Potassium 4.0 Chloride 109 H Carbon Dioxide 22 Anion Gap 14 BUN 19 H Creatinine 0.6 L Est GFR ( Amer) > 60 Est GFR (Non-Af Amer) > 60 Random Glucose 130 H Calcium 8.5 L Phosphorus 3.2 Magnesium 2.1 Total Bilirubin 1.8 H AST 23 ALT < 6 L D Alkaline Phosphatase 56 Total Protein 8.8 H Albumin 3.4 L Globulin 5.4 H Albumin/Globulin Ratio 0.6 L Critical Care Progress Note - Nutrition Nutrition: Nutrition Category Date Time Status Soft [Dysphagia/Modified Consistency Diet] [DIET] Diets 11/10/17 Dinner Active Assessment/Plan - Assessment and Plan (Free Text) Assessment: This is a 47 year old female with PMHx Asthma, Thymoma s/p resection 6 weeks ago , myasthenia gravis (started after thymoma resection) who presented to the hospital sent in by Dr. Branch for shortness of breath. Patient diagnosed to be in myasthenia crisis and was subsequently intubated. Patient extubated the next day. Patient had thymoma resection on 09/27/[address] [facility] by Dr. Murphy. Per patient, weight of thymoma was 775 gm and biopsy revealed B1 thymoma. However, the patient's cytology from prior thoracentesis at [facility] showed malignant cells. Oncology was consulted but deferred to CT surgery for management and workup. Per patient's surgeon Dr. Murphy, thymoma cells in the pleural space could be spillage from the procedure as the patient had a large mass. Patient is to follow up with him for further workup. Neuro Assessment: Myasthenia Crisis Given first ever dose of IVIG on 11/09/17 at 1 mg/kg in the office. IVIG 0.4 mg/kg for 4 days starting 11/10/17 Solumedrol 125 mg IV Q8H Pyridostigmine 60 mg PO Q8H Cardio No active issues Pulm Assessment: Hx of Asthma, Recurrent pleural effusions Duoneb Q4H prn Patient not good candidate for pleurex catheter Patient to follow up with primary surgeon. No intervention by CT surgery at [facility] [place] planned. GI Soft Diet Protonix 40 mg PO daily Modified Barium Swallow later per speech recommendation. Patient may remain on current diet. Heme/Onc Assessment: B1 Thymoma s/p resection, malignant cells seen on prior cytology report Oncology consulted f/u cytology of pleural fluid from yesterday Per Dr. Murphy, thymoma cells on prior report likely from spillage in the space considering the size of the mass Prophylaxis Heparin SC Q12H Protonix 40 mg PO daily Discussed with Dr. Ledezma
[2017-11-12] MEDS: IMMUNE GLOBULIN 50 MG/ML IV SCH (09:34)
[2017-11-12] MEDS: Aritificial Tears (15ml) OU SCH ×2 (09:46→17:07)
[2017-11-12] MEDS: Pantoprazole 40 mg EC Tab PO SCH (09:47)
--- NOTE | 2017-11-12 09:53 | CP.PCM.PN ---
Subjective - Date & Time of Evaluation Date of Evaluation: 11/12/17 Time of Evaluation: 09:52 - Subjective Subjective: Patient today feeling much better. Minimal wheezing noted. Patient was seen by a neurologist today. Patient will be getting immunoglobulin today, and tomorrow Vital signs stable. Chest good air entry. Cleo Hartsell nontender abdomen no pedal edema [employer] alert awake oriented 3 no functional neurological deficit Labs reviewed in Assessment/recommendation: 47-year-old female recently underwent a thymectomy. Recurrent pleural effusion on the right side. Status post a thoracentesis. Myasthenia gravis, with acute exacerbation and respiratory failure improving now. On corticosteroid, immunoglobulin DVT and GI prophylaxis. Plan for discharge once cleared Objective - Vital Signs/Intake and Output Vital Signs (last 24 hours): Temp Pulse Resp BP Pulse Ox 98.2 F 65 22 141/84 96 11/12/17 04:00 11/12/17 07:59 11/12/17 07:59 11/12/17 07:59 11/12/17 09:01 Intake and Output: 11/12/17 11/12/17 06:59 18:59 Intake Total 920 0 Output Total 850 250 Balance 70 -250 - Medications Medications: Current Medications Albuterol/Ipratropium (Duoneb 3 Mg/0.5 Mg (3 Ml) Ud) 3 ml INH RQ4 PRN PRN Reason: Shortness of Breath Last Admin: 11/12/17 08:33 Dose: 3 ml Artificial Tears (Artificial Tears) 0 ml OU BID [facility] Last Admin: 11/12/17 09:46 Dose: 1 drop Heparin Sodium (Porcine) (Heparin) 5,000 units SC Q12H [facility] Last Admin: 11/12/17 09:47 Dose: 5,000 units Immune Globulin (Octagam 5%) 500 mls @ 0 mls/hr IV DAILY [facility] PRN Reason: UD Stop: 11/13/17 10:01 Last Admin: 11/12/17 09:34 Dose: 38 mls/hr Methylprednisolone (Solu-Medrol) 125 mg IV Q8H [facility] Last Admin: 11/12/17 08:50 Dose: 125 mg Pantoprazole Sodium (Protonix Ec Tab) 40 mg PO DAILY [facility] Last Admin: 11/12/17 09:47 Dose: 40 mg Pyridostigmine [place] (Mestinon Tab) 60 mg PO Q8H [facility] Last Admin: 11/12/17 04:59 Dose: 60 mg - Labs Labs: 11/12/17 06:27 11/12/17 06:28 PT 12.3 SECONDS (9.7-12.2) H 11/09/17 16:25 INR 1.1 11/09/17 16:25 APTT 29 SECONDS (21-34) 11/10/17 06:50 Assessment and Plan (1) Myasthenia exacerbation Status: Acute (2) Acute respiratory failure with hypercapnia Status: Acute (3) Acute respiratory failure requiring reintubation Status: Acute (4) Myasthenia gravis status post thymectomy Status: Chronic
[2017-11-12] MEDS ORDERED: Barium Sulfate for Susp 96% w/w 176g Bottle PR ONE (11:04)
[2017-11-12] MEDS ORDERED: Barium Sulfate for Susp 98% w/w 340g Bottle ONE (11:14)
--- NOTE | 2017-11-12 13:24 | RAD ---
PROCEDURE: Modified barium swallow HISTORY: myasthenia gravis COMPARISON: None available TECHNIQUE: A modified barium video swallow was performed in conjunction with the speech therapy department. Swallowing barium mixtures of varying viscosity was monitored fluoroscopically. FINDINGS: There was transient laryngeal penetration seen with thin liquids. There was no aspiration witnessed during this examination. Please see the report from speech therapy for full evaluation. IMPRESSION: No aspiration observed.
[2017-11-12] MEDS: Lidocaine 5% Patch TD SCH (17:06)
[2017-11-13 06:48] LABS: BASO % 0.1 % (0.0-2.0); HEMOGLOBIN 10.8 g/dL (11.0-16.0); LYMPH # 0.4 K/uL (1.0-4.3); LYMPH % 5.4 % (20.0-40.0); MEAN CELL VOLUME 86.6 fL (81.0-99.0); MEAN CORPUSCULAR HEMOGLOBIN 30.2 pg (27.0-31.0); MEAN CORPUSCULAR HGB CONC 34.9 g/dL (33.0-37.0); MEAN PLATELET VOLUME 7.6 fL (7.2-11.7); MONO # 0.4 K/uL (0.0-0.8); MONO % 5.2 % (0.0-10.0); NEUT # 6.1 K/uL (1.8-7.0); NEUT % 89.3 % (50.0-75.0); PLATELET COUNT 414 K/uL (130-400); RBC 3.59 Mil/uL (3.80-5.20); RED CELL DISTRIBUTION WIDTH 12.6 % (11.5-14.5); WHITE BLOOD COUNT 6.8 K/uL (4.8-10.8)
[2017-11-13 07:16] LABS: ALB/GLOB RATIO 0.6 (1.0-2.1); ALBUMIN 3.3 g/dL (3.5-5.0); ALT/SGPT 8 U/L (9-52); AST/SGOT 20 U/L (14-36); BLOOD UREA NITROGEN 21 mg/dL (7-17); CALCIUM 8.7 mg/dl (8.6-10.4); GFR AFRICAN-AMERICAN > 60; GFR NON-AFRICAN AMERICAN > 60
[2017-11-13] MEDS: Albuterol-Ipratrop 3 mg / 0.5 (3 ml) UD INH PRN ×2 (07:39→19:54)
[2017-11-13 08:56] LABS: BANDS 1 % (0-2); LYMPHOCYTE 3 % (20-40); MONOCYTE 5 % (0-10); NEUTROPHIL 91 % (50-75); PLATELET ESTIMATE SLIGHTLY INCREASED (NORMAL); TOTAL CELLS COUNTED 100
[2017-11-13 08:57] LABS: ANISOCYTOSIS SLIGHT
[2017-11-13 08:58] LABS: LARGE PLATELETS PRESENT
[2017-11-13 08:59] LABS: HYPOCHROMIC SLIGHT; POLYCHROMIC SLIGHT
[2017-11-13] MEDS: IMMUNE GLOBULIN 50 MG/ML IV SCH (10:00)
[2017-11-13] MEDS: Pantoprazole 40 mg EC Tab PO SCH (10:32)
[2017-11-13] MEDS: Lidocaine 5% Patch TD SCH (10:33)
[2017-11-13] MEDS: Aritificial Tears (15ml) OU SCH ×2 (10:42→17:00)
--- NOTE | 2017-11-13 14:05 | CP.CCUPN ---
CCU Subjective - Physician Review Events Since Last Encounter (Free Text): 11/13/17 13:58 no complaints. CCU Objective - Vital Signs / Intake & Output Vital Signs (Last 4 hours): Vital Signs Pulse Resp BP 11/13/17 12:00 56 L 15 109/65 11/13/17 11:00 58 L 20 11/13/17 10:40 65 27 H 114/59 L Intake and Output (Last 8hrs): Intake & Output 11/12/17 11/13/17 11/13/17 22:59 06:59 14:59 Intake Total 679 50 477 Output Total 675 550 250 Balance 4 -500 227 Intake: Intake, IV Amount 304 0 152 Right Forearm 304 0 152 Oral 375 50 325 Output: Urine 675 350 250 Urine, Voided 675 350 250 Stool 200 0 Other: # Voids Urine, Voided 1 1 # Bowel Movements 1 1 - Physical Exam Head: Positive for: Atraumatic, Normocephalic Pupils: Positive for: PERRL Extroacular Muscles: Positive for: EOMI Conjunctiva: Positive for: Normal Mouth: Positive for: Moist Mucous Membranes Nose (External): Positive for: Other (NGT in place) Respiratory/Chest: Positive for: Clear to Auscultation, Wheezes. Negative for: Rales, Rhonchi Cardiovascular: Positive for: Regular Rate and Rhythm, Normal S1, S2 Abdomen: Positive for: Normal Bowel Sounds. Negative for: Tenderness Upper Extremity: Negative for: Edema Lower Extremity: Negative for: Edema Neurological: Positive for: GCS=15, CN II-XII Intact Skin: Positive for: Warm, Dry Psychiatric: Positive for: Alert, Oriented x 3 - Medications Active Medications: Active Medications Generic Name Dose Route Start Last Admin Trade Name Freq PRN Reason Stop Dose Admin Albuterol/Ipratropium 3 ml 11/12/17 08:09 11/13/17 07:39 Duoneb 3 Mg/0.5 Mg (3 Ml) Ud INH 3 ml RQ4 PRN Administration Shortness of Breath Artificial Tears 0 ml 11/10/17 14:00 11/13/17 10:42 Artificial Tears OU 1 drop BID DIONICIO Administration Heparin Sodium (Porcine) 5,000 units 11/09/17 22:00 11/13/17 10:31 Heparin SC 5,000 units Q12H [facility] Administration Lidocaine 1 ea 11/12/17 17:00 11/13/17 10:33 Lidoderm TD 1 ea DAILY [facility] Administration Methylprednisolone 125 mg 11/09/17 17:00 11/13/17 08:04 Solu-Medrol IV 125 mg Q8H [facility] Administration Pantoprazole Sodium 40 mg 11/11/17 10:00 11/13/17 10:32 Protonix Ec Tab PO 40 mg DAILY [facility] Administration Pyridostigmine [place] 60 mg 11/11/17 13:00 11/13/17 13:07 Mestinon Tab PO 60 mg Q8H [facility] Administration - Patient Studies Lab Studies: Microbiology Studies 11/09/17 16:52 Blood Culture - Preliminary Blood NO GROWTH AFTER 3 DAYS 11/09/17 16:55 Blood Culture - Preliminary Blood NO GROWTH AFTER 3 DAYS Lab Studies 11/13/17 11/13/17 Range/Units 06:39 06:38 WBC 6.8 (4.8-10.8) K/uL RBC 3.59 L (3.80-5.20) Mil/uL Hgb 10.8 L (11.0-16.0) g/dL Hct 31.1 L (34.0-47.0) % MCV 86.6 (81.0-99.0) fL MCH 30.2 (27.0-31.0) pg MCHC 34.9 (33.0-37.0) g/dL RDW 12.6 (11.5-14.5) % Plt Count 414 H (130-400) K/uL MPV 7.6 (7.2-11.7) fL Neut % (Auto) 89.3 H (50.0-75.0) % Lymph % (Auto) 5.4 L (20.0-40.0) % Armstrong % (Auto) 5.2 (0.0-10.0) % Eos % (Auto) 0.0 (0.0-4.0) % Baso % (Auto) 0.1 (0.0-2.0) % Neut # (Auto) 6.1 (1.8-7.0) K/uL Lymph # (Auto) 0.4 L (1.0-4.3) K/uL Armstrong # (Auto) 0.4 (0.0-0.8) K/uL Eos # (Auto) 0.0 (0.0-0.7) K/uL Baso # (Auto) 0.0 (0.0-0.2) K/uL Neutrophils % (Manual) 91 H (50-75) % Band Neutrophils % 1 (0-2) % Lymphocytes % (Manual) 3 L (20-40) % Monocytes % (Manual) 5 (0-10) % Platelet Estimate Slightly increased H (NORMAL) Large Platelets Present Polychromasia Slight Hypochromasia (manual) Slight Anisocytosis (manual) Slight Sodium 141 (132-148) mmol/L Potassium 3.9 (3.6-5.2) mmol/L Chloride 109 H (98-107) mmol/L Carbon Dioxide 24 (22-30) mmol/L Anion Gap 13 (10-20) BUN 21 H (7-17) mg/dL Creatinine 0.7 (0.7-1.2) mg/dL Est GFR ( Amer) > 60 Est GFR (Non-Af Amer) > 60 Random Glucose 138 H (65-105) mg/dL Calcium 8.7 (8.6-10.4) mg/dl Phosphorus 3.0 (2.5-4.5) mg/dL Magnesium 2.3 (1.6-2.3) mg/dL Total Bilirubin 1.5 H (0.2-1.3) mg/dL AST 20 (14-36) U/L ALT 8 L D (9-52) U/L Alkaline Phosphatase 58 (38-126) U/L Total Protein 8.7 H (6.3-8.3) g/dL Albumin 3.3 L (3.5-5.0) g/dL Globulin 5.4 H (2.2-3.9) gm/dL Albumin/Globulin Ratio 0.6 L (1.0-2.1) Laboratory Results - last 24 hr 11/13/17 11/13/17 06:38 06:39 WBC 6.8 RBC 3.59 L Hgb 10.8 L Hct 31.1 L MCV 86.6 MCH 30.2 MCHC 34.9 RDW 12.6 Plt Count 414 H MPV 7.6 Neut % (Auto) 89.3 H Lymph % (Auto) 5.4 L Armstrong % (Auto) 5.2 Eos % (Auto) 0.0 Baso % (Auto) 0.1 Neut # (Auto) 6.1 Lymph # (Auto) 0.4 L Armstrong # (Auto) 0.4 Eos # (Auto) 0.0 Baso # (Auto) 0.0 Neutrophils % (Manual) 91 H Band Neutrophils % 1 Lymphocytes % (Manual) 3 L Monocytes % (Manual) 5 Platelet Estimate Slightly increased H Large Platelets Present Polychromasia Slight Hypochromasia (manual) Slight Anisocytosis (manual) Slight Sodium 141 Potassium 3.9 Chloride 109 H Carbon Dioxide 24 Anion Gap 13 BUN 21 H Creatinine 0.7 Est GFR ( Amer) > 60 Est GFR (Non-Af Amer) > 60 Random Glucose 138 H Calcium 8.7 Phosphorus 3.0 Magnesium 2.3 Total Bilirubin 1.5 H AST 20 ALT 8 L D Alkaline Phosphatase 58 Total Protein 8.7 H Albumin 3.3 L Globulin 5.4 H Albumin/Globulin Ratio 0.6 L Review of Systems - Review of Systems All systems: reviewed and no additional remarkable complaints except (no complaints) Critical Care Progress Note - Nutrition Nutrition: Nutrition Category Date Time Status Soft [Dysphagia/Modified Consistency Diet] [DIET] Diets 11/10/17 Dinner Active Assessment/Plan (1) Myasthenia exacerbation Assessment and plan: 47yo F. myasthenia gravis, s/p thymectomy. Patient is being treated with daily IVIG (today is her last dose), steroids and pyridostigmine. Patient is doing well clinically. She has had recurrent pleural effusions which is expected after her large thymus was removed, with a remaining large pleural space. 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 Her 3rd thoracentesis showed remaining thymoma cells in her pleural fluid. The clinical relevance of this is uncertain ( remnant cells after surgical resection or metastasis), after speaking with multiple specialists, oncologists and her cardiothoracic surgeon. 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 Today she is having periods of asymptomatic bradycardia. This may be a side effect of the pyridostigmine, will discuss with Dr. Branch her neurologist. Critical Care Time spent 35 minutes Multi-disciplinary rounds were performed with house staff, nursing, speech therapy, respiratory therapy, pharmacy and nutrition with integrated input from the primary team/attending and other consulting services. The documented time is cumulative and includes review of patient data/exams/labs/chart review and examination of the patient on rounds and throughout the day; time is exclusive of any procedures or teaching time. Current Visit: Yes Status: Acute Onset Date: ~11/09/17
--- NOTE | 2017-11-13 18:31 | CP.PCM.PN ---
Subjective - Date & Time of Evaluation Date of Evaluation: 11/13/17 Time of Evaluation: 18:26 - Subjective Subjective: pt now having some difficulty in breathing and mild tachy episodic bradicardia noted she feels strong after taking mesthinon but only for 2 hrs then she again gets exausted easily having hard time in eating now Temp Pulse Resp BP Pulse Ox 98.0 F 52 L 27 H 131/73 99 11/13/17 12:00 11/13/17 15:59 11/13/17 15:59 11/13/17 15:59 11/13/17 15:59 chest good air entry regular hs abd soft edema negative spoke to neuro rai 2* the meds mesthinon unable to rise the dose may be timed release helpful not clear will check abg and cxr eval for fluid bipap main airway aspiration precausions will f/u icu monitoring Objective - Vital Signs/Intake and Output Vital Signs (last 24 hours): Temp Pulse Resp BP Pulse Ox 98.0 F 52 L 27 H 131/73 99 11/13/17 12:00 11/13/17 15:59 11/13/17 15:59 11/13/17 15:59 11/13/17 15:59 Intake and Output: 11/13/17 11/13/17 06:59 18:59 Intake Total 302 666 Output Total 850 450 Balance -548 216 - Medications Medications: Current Medications Albuterol/Ipratropium (Duoneb 3 Mg/0.5 Mg (3 Ml) Ud) 3 ml INH RQ4 PRN PRN Reason: Shortness of Breath Last Admin: 11/13/17 07:39 Dose: 3 ml Artificial Tears (Artificial Tears) 0 ml OU BID [facility]ION[facility] Last Admin: 11/13/17 17:00 Dose: 1 drop Heparin Sodium (Porcine) (Heparin) 5,000 units SC Q12H [facility] Last Admin: 11/13/17 10:31 Dose: 5,000 units Lidocaine (Lidoderm) 1 ea TD DAILY [facility] Last Admin: 11/13/17 10:33 Dose: 1 ea Methylprednisolone (Solu-Medrol) 125 mg IV Q8H [facility] Last Admin: 11/13/17 16:47 Dose: 125 mg Pantoprazole Sodium (Protonix Ec Tab) 40 mg PO DAILY [facility] Last Admin: 11/13/17 10:32 Dose: 40 mg Pyridostigmine [place] (Mestinon Tab) 60 mg PO Q8H [facility] Last Admin: 11/13/17 13:07 Dose: 60 mg - Labs Labs: 11/13/17 06:39 11/13/17 06:38 PT 12.3 SECONDS (9.7-12.2) H 11/09/17 16:25 INR 1.1 11/09/17 16:25 APTT 29 SECONDS (21-34) 11/10/17 06:50 Assessment and Plan (1) Myasthenia exacerbation Status: Acute (2) Acute respiratory failure with hypercapnia Status: Acute (3) Acute respiratory failure requiring reintubation Status: Acute (4) Myasthenia gravis status post thymectomy Status: Chronic
[2017-11-13 18:58] LABS: ABG ALLEN TEST PO; ARTERIAL BLOOD GAS HCO3 24.1 mmol/L (21-28); ARTERIAL BLOOD GAS HEMOGLOBIN 10.5 g/dL (11.7-17.4); ARTERIAL BLOOD GAS O2 SAT 87.5 % (95-98); ARTERIAL BLOOD GAS PCO2 35 mm/Hg (35-45); ARTERIAL BLOOD GAS PH 7.43 (7.35-7.45); ARTERIAL BLOOD GAS PO2 46 mm/Hg (80-100); ARTERIAL BLOOD GAS TCO2 24.3 mmol/L (22-28)
--- NOTE | 2017-11-13 21:59 | CON ---
DATE: 11/13/2017 REASON FOR CONSULTATION: The patient has recurrent pleural effusion. HISTORY OF PRESENT ILLNESS: A 47-year-old female diagnosed to have myasthenia gravis and then found to have thymoma, had a thymectomy done about seven weeks ago and now the patient has recurrent pleural effusion at least five times. The patient is now again admitted with shortness of breath went into respiratory failure, intubated. Fluid was again had a pleural effusion test. I am called on consult for further suggestions. PAST MEDICAL HISTORY: Significant for bronchial asthma. ALLERGIES: MULTIPLE ALLERGIES PER IN THE CHART. PERSONAL HISTORY: Nonsmoker. No ethanol abuse. . REVIEW OF SYSTEMS: Denies any headache, dizziness, or blackout. No chest pain or palpitation. No cough or sputum. Denies any shortness of breath at present time. No fever or chills. Good appetite. No weight loss. Denies nausea, vomiting, melena. No dysuria or hematuria. No abdominal pain. No tingling or numbness. PHYSICAL EXAMINATION: GENERAL: Awake, alert and oriented. Quite pleasant, not in acute distress. VITAL SIGNS: Pulse 55, respirations 12, blood pressure 120/70, afebrile. HEENT: Head is normocephalic and atraumatic. Eyes, conjunctivae pink. Sclerae white. Pupil reacting to light. Ear, nose, and throat within normal limits. LUNGS: Bilaterally good air entry. Clear to auscultation and percussion. HEART: S1, S2, regular. No gallop. No murmur. ABDOMEN: Soft, nondistended, nontender. No hepatosplenomegaly. 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 LYMPH NODE: No cervical, axillary or inguinal lymph nodes palpable. LABORATORY DATA: On 11/13/2017; WBC 6800, hemoglobin 10.8, platelet count 440,000. GFR is normal. Serum albumin 3.3, globulin 5.4. IMPRESSION: 1. Thymoma. 2. Anemia of chronic disease. 3. Reactive thrombocytosis. 4. Elevated globulin. Most likely polyclonal. PLAN: Clinical status discussed at length with the patient and . The patient will be evaluated by Dr. Murphy, thoracic surgeon, possible thoracoscopy and biopsy of the fluid. We will monitor hemoglobin. We will monitor globulin and if necessary we will do the protein electrophoresis and immune protein electrophoresis as an outpatient. The patient and have understood that and agreed with that. Discussed with Dr. Ledezma and also discussed with Dr. Branch. Thank you for letting me participate in the care of this patient and I will follow up the patient with you. Kvng Breen MD
[2017-11-14 06:45] LABS: BASO % 0.1 % (0.0-2.0); EOS % 0.1 % (0.0-4.0); HEMOGLOBIN 10.6 g/dL (11.0-16.0); LYMPH # 0.5 K/uL (1.0-4.3); LYMPH % 6.3 % (20.0-40.0); MEAN CELL VOLUME 86.4 fL (81.0-99.0); MEAN CORPUSCULAR HEMOGLOBIN 29.8 pg (27.0-31.0); MEAN CORPUSCULAR HGB CONC 34.5 g/dL (33.0-37.0); MEAN PLATELET VOLUME 7.7 fL (7.2-11.7); MONO % 11.8 % (0.0-10.0); NEUT % 81.7 % (50.0-75.0); NRBC % 0.1 % (0.0-2.0); PLATELET COUNT 395 K/uL (130-400); RBC 3.54 Mil/uL (3.80-5.20); RED CELL DISTRIBUTION WIDTH 12.8 % (11.5-14.5); WHITE BLOOD COUNT 8.5 K/uL (4.8-10.8)
[2017-11-14] MEDS: Albuterol-Ipratrop 3 mg / 0.5 (3 ml) UD INH PRN ×2 (07:30→12:24)
[2017-11-14 08:36] LABS: ANISOCYTOSIS SLIGHT; BANDS 1 % (0-2); HYPOCHROMIC SLIGHT; LYMPHOCYTE 11 % (20-40); MONOCYTE 10 % (0-10); NEUTROPHIL 78 % (50-75); PLATELET ESTIMATE NORMAL (NORMAL); POLYCHROMIC SLIGHT; TOTAL CELLS COUNTED 100
--- NOTE | 2017-11-14 09:15 | RAD ---
HISTORY: Effusion COMPARISON: Comparison chest 11/11/2017 FINDINGS: LUNGS: Re- demonstrated is opacity right lower lung field consistent with combination of moderate-sized effusion atelectasis and/or infiltrate. Minor left basilar atelectasis. Central pulmonary vasculature increase in appearance suggesting mild pulmonary venous congestion/CHF PLEURA: No significant pleural effusion identified, no pneumothorax apparent. CARDIOVASCULAR: Normal. OSSEOUS STRUCTURES: No significant abnormalities. VISUALIZED UPPER ABDOMEN: Normal. OTHER FINDINGS: None. IMPRESSION: Re- demonstrated is opacity right lower lung field consistent with combination of moderate-sized effusion atelectasis and/or infiltrate. Minor left basilar atelectasis. Central pulmonary vasculature increase in appearance suggesting mild pulmonary venous congestion/CHF
[2017-11-14] MEDS: Aritificial Tears (15ml) OU SCH ×2 (10:00→18:00)
[2017-11-14] MEDS: Lidocaine 5% Patch TD SCH (10:28)
[2017-11-14] MEDS: Pantoprazole 40 mg EC Tab PO SCH (10:28)
--- NOTE | 2017-11-14 13:09 | RAD ---
PROCEDURE: CHEST RADIOGRAPH, 1 VIEW HISTORY: Chest pain COMPARISON: Comparison chest 11/13/2017 FINDINGS: LUNGS: Moderately large right-sided effusion presumably associated with right lower lobe atelectasis and or infiltrate. Minor left basilar atelectasis with questionable small left effusion PLEURA: No apparent pneumothorax. . CARDIOVASCULAR: Heart size difficult to assess due to silhouetting right cardiac border. Sternotomy wires again noted OSSEOUS STRUCTURES: No significant abnormalities. VISUALIZED UPPER ABDOMEN: Normal. OTHER FINDINGS: Bilateral breast implants IMPRESSION: Moderately large right-sided effusion presumably associated with right lower lobe atelectasis and or infiltrate. Minor left basilar atelectasis with questionable small left effusion. Bilateral breast implants partially obscure fine detail
--- NOTE | 2017-11-14 13:11 | CP.PCM.PN ---
Subjective - Date & Time of Evaluation Date of Evaluation: 11/12/17 Time of Evaluation: 07:20 - Subjective Subjective: SHE WAS SEEN WITH DR HERNANDEZ SEEMS TO BE GEETING BETTER OOB AND AMBULATORY ON HER OWN MILD RESPIRATORY DISTRESS DROOPY EYELIDS NO DIPLOPIA REST NORMAL HEM ONC CONSLULT IS STILL PENDING ON IVIG / MESTINON/ METHYL PRED Objective - Vital Signs/Intake and Output Vital Signs (last 24 hours): Temp Pulse Resp BP Pulse Ox 98 F 83 16 138/79 99 11/14/17 12:00 11/14/17 12:27 11/14/17 12:27 11/14/17 12:27 11/14/17 12:00 Intake and Output: 11/14/17 11/14/17 06:59 18:59 Intake Total 202 240 Output Total 1100 200 Balance -898 40 - Medications Medications: Current Medications Albuterol/Ipratropium (Duoneb 3 Mg/0.5 Mg (3 Ml) Ud) 3 ml INH RQ4 PRN PRN Reason: Shortness of Breath Last Admin: 11/14/17 12:24 Dose: 3 ml Artificial Tears (Artificial Tears) 0 ml OU BID [facility] Last Admin: 11/13/17 17:00 Dose: 1 drop Heparin Sodium (Porcine) (Heparin) 5,000 units SC Q12H [facility] Last Admin: 11/14/17 10:27 Dose: 5,000 units Lidocaine (Lidoderm) 1 ea TD DAILY [facility] Last Admin: 11/14/17 10:28 Dose: 1 ea Methylprednisolone (Solu-Medrol) 125 mg IV Q8H [facility] Last Admin: 11/14/17 10:00 Dose: 125 mg Pantoprazole Sodium (Protonix Ec Tab) 40 mg PO DAILY [facility] Last Admin: 11/14/17 10:28 Dose: 40 mg - Labs Labs: 11/14/17 06:42 11/13/17 06:38 PT 12.3 SECONDS (9.7-12.2) H 11/09/17 16:25 INR 1.1 11/09/17 16:25 APTT 29 SECONDS (21-34) 11/10/17 06:50
--- NOTE | 2017-11-14 14:29 | PN ---
DATE: 11/14/2017 NEUROLOGICAL PROBLEM: Myasthenia gravis with exacerbation. PHYSICAL EXAMINATION VITAL SIGNS: Blood pressure 137/77 with mean arterial pressure of 101, pulse rate 80 sinus, respiratory rate 18. GENERAL: The patient is able to count numbers up to 8 in one breath. Ptosis noted. Working up with double vision. The patient is also complaining of no sleep at night. Rest of the examination is unchanged. The patient is examined in the presence of RN. The patient's condition also discussed with Dr. Ledezma yesterday, episodic bradycardia. The patient also seen by oncologist and also suggested no further treatment is needed for her thymoma. The patient completed IVIG as recommended. RECOMMENDATION: The patient's dose of Mestinon can be increased during the daytime at 8 o'clock, 12 o'clock, 4 o'clock and 8 p.m. We will closely observe her cardiac status with Mestinon. The patient able to tolerate chopped chicken on her own; however, there seems a little difficulty on swallow; however, she is able to tolerate on her own. The patient also admits Mestinon has been showing improvement within hour after taking. The patient also agreed to take 4 times a day instead of 3 times a day at present. The patient's IVIG is completed as recommended. Continue the present management at present. The patient will be followed closely with you. Sam Branch MD
--- NOTE | 2017-11-14 19:30 | CP.PCM.PN ---
Subjective - Date & Time of Evaluation Date of Evaluation: 11/14/17 Time of Evaluation: 19:27 - Subjective Subjective: pt is feeling little better today but still having some fatigue and weak no edema c/o some pain over the epigastric area no nausea no vomiting chest good air entry regular hs abd soft labs noted neuro note noted mestinon increased improved bradycardia cxr rt pleural effusion may need thoracentesis will repeat cxr in am Objective - Vital Signs/Intake and Output Vital Signs (last 24 hours): Temp Pulse Resp BP Pulse Ox 98.2 F 63 24 153/75 H 96 11/14/17 16:00 11/14/17 19:00 11/14/17 19:00 11/14/17 18:57 11/14/17 19:00 Intake and Output: 11/14/17 11/15/17 18:59 06:59 Intake Total 720 Output Total 750 0 Balance -30 0 - Medications Medications: Current Medications Albuterol/Ipratropium (Duoneb 3 Mg/0.5 Mg (3 Ml) Ud) 3 ml INH RQ4 PRN PRN Reason: Shortness of Breath Last Admin: 11/14/17 12:24 Dose: 3 ml Artificial Tears (Artificial Tears) 0 ml OU BID [facility] Last Admin: 11/14/17 18:00 Dose: 1 drop Heparin Sodium (Porcine) (Heparin) 5,000 units SC Q12H [facility] Last Admin: 11/14/17 10:27 Dose: 5,000 units Lidocaine (Lidoderm) 1 ea TD DAILY [facility] Last Admin: 11/14/17 10:28 Dose: 1 ea Methylprednisolone (Solu-Medrol) 125 mg IV Q8H [facility] Last Admin: 11/14/17 17:58 Dose: 125 mg Pantoprazole Sodium (Protonix Ec Tab) 40 mg PO DAILY [facility] Last Admin: 11/14/17 10:28 Dose: 40 mg Pyridostigmine [place] (Mestinon Tab) 60 mg PO QID [facility] Last Admin: 11/14/17 17:58 Dose: 60 mg - Labs Labs: 11/14/17 06:42 11/13/17 06:38 PT 12.3 SECONDS (9.7-12.2) H 11/09/17 16:25 INR 1.1 11/09/17 16:25 APTT 29 SECONDS (21-34) 11/10/17 06:50 Assessment and Plan (1) Myasthenia exacerbation Status: Acute (2) Acute respiratory failure with hypercapnia Status: Acute (3) Acute respiratory failure requiring reintubation Status: Acute (4) Myasthenia gravis status post thymectomy Status: Chronic
[2017-11-15] MEDS: Albuterol-Ipratrop 3 mg / 0.5 (3 ml) UD INH PRN (07:45)
--- NOTE | 2017-11-15 08:31 | RAD ---
HISTORY: effusion COMPARISON: 11/14/2017 FINDINGS: LUNGS: No active pulmonary disease. PLEURA: Moderate right pleural effusion, unchanged. No left pleural effusion. No pneumothorax. CARDIOVASCULAR: Normal heart size. Sternotomy wires. No congestive change. OSSEOUS STRUCTURES: No significant abnormalities. VISUALIZED UPPER ABDOMEN: Normal. OTHER FINDINGS: None. IMPRESSION: Stable moderate right pleural effusion.
[2017-11-15] MEDS: Pantoprazole 40 mg EC Tab PO SCH (09:36)
[2017-11-15] MEDS: Lidocaine 5% Patch TD SCH (09:45)
[2017-11-15] MEDS: Aritificial Tears (15ml) OU SCH ×2 (09:47→17:24)
[2017-11-15 10:08] LABS: BASO % 0.2 % (0.0-2.0); HEMOGLOBIN 11.7 g/dL (11.0-16.0); LYMPH # 0.5 K/uL (1.0-4.3); LYMPH % 3.2 % (20.0-40.0); MEAN CELL VOLUME 85.9 fL (81.0-99.0); MEAN CORPUSCULAR HEMOGLOBIN 30.1 pg (27.0-31.0); MEAN CORPUSCULAR HGB CONC 35.1 g/dL (33.0-37.0); MEAN PLATELET VOLUME 7.6 fL (7.2-11.7); MONO # 1.3 K/uL (0.0-0.8); MONO % 9.3 % (0.0-10.0); NEUT # 12.3 K/uL (1.8-7.0); NEUT % 87.3 % (50.0-75.0); NRBC % 0.1 % (0.0-2.0); PLATELET COUNT 428 K/uL (130-400); RED CELL DISTRIBUTION WIDTH 12.8 % (11.5-14.5); WHITE BLOOD COUNT 14.1 K/uL (4.8-10.8)
[2017-11-15 10:34] LABS: BANDS 2 % (0-2); EOSINOPHIL 1 % (0-4); LYMPHOCYTE 4 % (20-40); MONOCYTE 7 % (0-10); NEUTROPHIL 86 % (50-75); PLATELET ESTIMATE SLIGHTLY INCREASED (NORMAL); TOTAL CELLS COUNTED 100
[2017-11-15 10:47] LABS: ALB/GLOB RATIO 0.6 (1.0-2.1); ALBUMIN 3.3 g/dL (3.5-5.0); ALT/SGPT 29 U/L (9-52); AST/SGOT 35 U/L (14-36); BLOOD UREA NITROGEN 26 mg/dL (7-17); CALCIUM 8.5 mg/dl (8.6-10.4); GFR AFRICAN-AMERICAN > 60; GFR NON-AFRICAN AMERICAN > 60
--- NOTE | 2017-11-15 14:19 | PN ---
DATE: 11/15/2017 NEUROLOGICAL PROBLEM: Myasthenia gravis with crisis, status post respiratory failure and pleural effusion. PHYSICAL EXAMINATION VITAL SIGNS: Blood pressure 150/73, mean artery pressure of 98, respiratory rate 16, pulse rate 58 sinus. She could be able to count up to 12 in one breath. GENERAL: The patient claims she is better than yesterday. She slept good with Benadryl. NEUROLOGICAL: On examination, ptosis. Extraocular movements are intact. Neck flexions are 4/5. Shoulder is 4/5. Deep tendon reflexes are 1+. Plantars are downgoing. Respirations, slight distress is noted. The patient is tolerating 4 times a day of Mestinon dose at present. The patient's condition being discussed with Dr. Ledezma. Probably, she may need thoracocentesis one more time. When medically stable, the patient will be discharged. Concerning her illness, the patient may be benefited by adding chemotherapeutic agent, that will be decided while she was outpatient. The patient will be followed closely with you. Sam Branch MD
--- NOTE | 2017-11-15 18:20 | CP.PCM.PN ---
Subjective - Date & Time of Evaluation Date of Evaluation: 11/15/17 Time of Evaluation: 18:17 - Subjective Subjective: Patient today tolerating the Mestinon. She had a few episodes of shortness of breath, and also dyspnea. Patient was also having weakness. Some dysphagia on and off. But symptoms improves after taking the Mestinon. Patient is having difficulty needing the hard food Objective - Vital Signs/Intake and Output Vital Signs (last 24 hours): Temp Pulse Resp BP Pulse Ox 97.8 F 52 L 16 162/87 H 93 L 11/15/17 16:00 11/15/17 16:00 11/15/17 16:00 11/15/17 16:00 11/15/17 16:00 Intake and Output: 11/15/17 11/15/17 06:59 18:59 Intake Total 100 650 Output Total 400 300 Balance -300 350 - Medications Medications: Current Medications Albuterol/Ipratropium (Duoneb 3 Mg/0.5 Mg (3 Ml) Ud) 3 ml INH RQ4 PRN PRN Reason: Shortness of Breath Last Admin: 11/15/17 07:45 Dose: 3 ml Artificial Tears (Artificial Tears) 0 ml OU BID [facility] Last Admin: 11/15/17 17:24 Dose: 1 drop Heparin Sodium (Porcine) (Heparin) 5,000 units SC Q12H [facility] Last Admin: 11/15/17 09:37 Dose: 5,000 units Lidocaine (Lidoderm) 1 ea TD DAILY [facility] Last Admin: 11/15/17 09:45 Dose: 1 ea Methylprednisolone (Solu-Medrol) 125 mg IV Q8H [facility] Last Admin: 11/15/17 17:24 Dose: 125 mg Pantoprazole Sodium (Protonix Ec Tab) 40 mg PO DAILY [facility] Last Admin: 11/15/17 09:36 Dose: 40 mg Pyridostigmine [place] (Mestinon Tab) 60 mg PO QID [facility] Last Admin: 11/15/17 17:24 Dose: 60 mg Temazepam (Restoril) 15 mg PO HS [facility] - Labs Labs: 11/15/17 10:01 11/15/17 10:01 PT 12.3 SECONDS (9.7-12.2) H 11/09/17 16:25 INR 1.1 11/09/17 16:25 APTT 29 SECONDS (21-34) 11/10/17 06:50 - Head Exam Additional comments: On examination: Chest good air entry Regular heart sounds Nontender abdomen Patient is having tenderness over the xiphoid process - Additional Findings Additional findings: Labs reviewed Nonspecific Chest x-ray right lower lung mild effusion noted. Spoke to interventional radiologist it, too minimal fluid for tapping Assessment and Plan (1) Myasthenia exacerbation Assessment & Plan: Assessment and recommendation: 47-year-old female admitted with myasthenia gravis crisis. Status post thymectomy. On medications now Will discuss with the neurologist for possible discharge plan tomorrow Status: Acute (2) Acute respiratory failure with hypercapnia Status: Acute (3) Acute respiratory failure requiring reintubation Status: Acute (4) Myasthenia gravis status post thymectomy Status: Chronic
[2017-11-16] MEDS: Albuterol-Ipratrop 3 mg / 0.5 (3 ml) UD INH PRN ×2 (08:01→13:55)
[2017-11-16] MEDS: Aritificial Tears (15ml) OU SCH ×2 (09:16→17:27)
[2017-11-16] MEDS: Lidocaine 5% Patch TD SCH (09:17)
[2017-11-16] MEDS: Pantoprazole 40 mg EC Tab PO SCH (09:18)
--- NOTE | 2017-11-16 10:44 | PN ---
DATE: 11/16/2017 NEUROLOGIC PROBLEM: Myasthenia gravis with crisis, status post respiratory failure and extubation. The patient waking up with double vision and droopy eyelid. The patient feels comfortable on Mestinon dose, for an hour or two, then her weakness follows. The patient is ambulatory. No cholinergic crisis on high dose of Mestinon at present. The patient is neurologically stable. The current examination is not changed compared with yesterday's exam. She was able to count until twelve in one breath. The patient if medically cleared, she can be discharged. Steroids can come out and she could continue Mestinon at the current dose and the dose can be re-titrated with Mestinon regular dose 60 mg at 8 o 'clock, 12 o'clock, 4 o'clock, and Mestinon time span can be given at nighttime. The patient will be continuing intravenous immunoglobulin as outpatient. If medically stable, the patient can be discharged and to be followed as outpatient. Sam Branch MD
--- NOTE | 2017-11-16 18:58 | CP.PCM.PN ---
Subjective - Date & Time of Evaluation Date of Evaluation: 11/16/17 Time of Evaluation: 18:55 - Subjective Subjective: Patient's clinical symptoms remain same. After taking Mestinon patient is feeling much stronger, but within 4 hours she started feeling some weakness. She is also having some difficulty in walking, and this started having diplopia. Difficulty in swallowing also noticed. Patient is a candidate for timed release Mestinon, but currently not available here. Patient is also needing a form of respiratory support during that time. Patient wanted to go home today. But I advised her that she may need portable ventilator at home. We will plan it to get it in the morning with the social service. Objective - Vital Signs/Intake and Output Vital Signs (last 24 hours): Temp Pulse Resp BP Pulse Ox 98.2 F 72 16 142/83 96 11/16/17 16:00 11/16/17 16:00 11/16/17 16:00 11/16/17 16:00 11/16/17 16:00 Intake and Output: 11/16/17 11/16/17 06:59 18:59 Intake Total 180 Output Total 300 Balance -120 On examination: Chest good air entry bilaterally regular heart sound Nontender abdomen No pedal edema [employer] alert awake oriented Patient is currently feeling stronger, muscle fatigue is slightly noted, but better - Medications Medications: Current Medications Artificial Tears (Artificial Tears) 0 ml OU BID [facility] Last Admin: 11/16/17 17:27 Dose: 1 drop Heparin Sodium (Porcine) (Heparin) 5,000 units SC Q12H [facility] Last Admin: 11/16/17 09:16 Dose: 5,000 units Lidocaine (Lidoderm) 1 ea TD DAILY [facility] Last Admin: 11/16/17 09:17 Dose: 1 ea Methylprednisolone (Solu-Medrol) 125 mg IV Q8H [facility] Last Admin: 11/16/17 16:23 Dose: 125 mg Pantoprazole Sodium (Protonix Ec Tab) 40 mg PO DAILY [facility] Last Admin: 11/16/17 09:18 Dose: 40 mg Pyridostigmine [place] (Mestinon Tab) 60 mg PO QID [facility] Last Admin: 11/16/17 17:27 Dose: 60 mg Temazepam (Restoril) 15 mg PO HS [facility] Last Admin: 11/15/17 21:45 Dose: 15 mg - Labs Labs: 11/15/17 10:01 11/15/17 10:01 PT 12.3 SECONDS (9.7-12.2) H 11/09/17 16:25 INR 1.1 11/09/17 16:25 APTT 29 SECONDS (21-34) 11/10/17 06:50 Assessment and Plan (1) Myasthenia exacerbation Assessment & Plan: Status post thymectomy. Currently having myasthenia exacerbation. We will continue the Mestinon, on corticosteroid. Will reduce the dose Discussed with the neurologist. Will start the patient possibly timed release as an outpatient. patient may benefit having Trilogy ventilator, given the neuromuscular diseases with the weakness. Status: Acute (2) Acute respiratory failure with hypercapnia Status: Acute (3) Acute respiratory failure requiring reintubation Status: Acute (4) Myasthenia gravis status post thymectomy Status: Chronic
[2017-11-16] MEDS: Albuterol-Ipratrop 3 mg / 0.5 (3 ml) UD INH SCH (21:40)
[2017-11-17 06:46] LABS: BASO % 0.2 % (0.0-2.0); HEMOGLOBIN 11.3 g/dL (11.0-16.0); LYMPH # 0.5 K/uL (1.0-4.3); LYMPH % 2.9 % (20.0-40.0); MEAN CELL VOLUME 86.5 fL (81.0-99.0); MEAN CORPUSCULAR HEMOGLOBIN 29.8 pg (27.0-31.0); MEAN CORPUSCULAR HGB CONC 34.4 g/dL (33.0-37.0); MEAN PLATELET VOLUME 7.8 fL (7.2-11.7); MONO # 0.8 K/uL (0.0-0.8); MONO % 4.9 % (0.0-10.0); NEUT # 14.7 K/uL (1.8-7.0); NRBC % 0.1 % (0.0-2.0); PLATELET COUNT 391 K/uL (130-400)
[2017-11-17 06:53] LABS: ALB/GLOB RATIO 0.7 (1.0-2.1); ALBUMIN 2.7 g/dL (3.5-5.0); ALT/SGPT 53 U/L (9-52); AST/SGOT 36 U/L (14-36); BLOOD UREA NITROGEN 22 mg/dL (7-17); CALCIUM 7.9 mg/dl (8.6-10.4); GFR AFRICAN-AMERICAN > 60; GFR NON-AFRICAN AMERICAN > 60
[2017-11-17] MEDS: Albuterol-Ipratrop 3 mg / 0.5 (3 ml) UD INH SCH (07:54)
[2017-11-17 08:53] LABS: BANDS 3 % (0-2); LYMPHOCYTE 8 % (20-40); MONOCYTE 4 % (0-10); MYELOCYTE 1 % (0-0); NEUTROPHIL 84 % (50-75); TOTAL CELLS COUNTED 100
[2017-11-17 08:54] LABS: ANISOCYTOSIS SLIGHT; HYPOCHROMIC SLIGHT; PLATELET ESTIMATE NORMAL (NORMAL); POIKILOCYTOSIS SLIGHT; TARGET CELLS SLIGHT
[2017-11-17] MEDS: Lidocaine 5% Patch TD SCH (09:16)
[2017-11-17] MEDS: Pantoprazole 40 mg EC Tab PO SCH (09:16)
[2017-11-17] MEDS: Aritificial Tears (15ml) OU SCH ×2 (09:17→17:44)
--- NOTE | 2017-11-17 10:56 | PN ---
DATE: 11/17/2017 TIME OF EVALUATION: 07:10 a.m. NEUROLOGICAL PROBLEM: Myasthenic crisis, status post respiratory arrest and intubation followed by extubation. PHYSICAL EXAMINATION: VITAL SIGNS: Blood pressure 123/78, mean arterial pressure of 93, respiratory rate 18, temperature 98, pulse rate 71. The patient is tolerating the current dose of Mestinon. No drop in heart rate. No cholinergic side effect. The patient seems to be stable with the Mestinon dose. She could be able to count up to 16 today following Mestinon, which was given half an hour ago. Rest of the examination is unchanged. RECOMMENDATIONS: The patient does get home CPAP. The patient can be taking Mestinon 60 mg in the morning, afternoon, and evening. With the Mestinon time span, it can be taken at 8 o'clock at night. The patient will be followed by me as outpatient. The patient continues to have intravenous immunoglobulin, and formal polysomnogram should be done as outpatient as well. If medically cleared, patient can be discharged. Sam Branch MD
[2017-11-17 16:02] VITALS: TEMP 97.5
--- NOTE | 2017-11-17 16:54 | CP.PCM.PN ---
Subjective - Date & Time of Evaluation Date of Evaluation: 11/17/17 Time of Evaluation: 16:51 - Subjective Subjective: PT CLEARED FOR D/C TODAY HOME PER DR. HERNANDEZ. HE WILL SEE THE PT PRIOR TO HER D/C THIS EVENING. ALL MEDICATIONS AND F/U DISCUSSED WITH THE PT AT LENGTH; RX SENT TO HER PHARMACY. PT DOES NOT QUALIFY FOR TRILOGY MACHINE 2/2 HER O2 AND CO2 NUMBERS. PER SHAZIA WADSWORTH TO HAVE SLEEP STUDY OUTPATIENT FOR MACHINE USE AT HOME. FOR F/U WITH DR. FULTON IN 1 WEEK WELL. PT WAITING FOR HER SIGN OTHER TO PICK HER UP. NO FURTHER ORDERS. Objective - Vital Signs/Intake and Output Vital Signs (last 24 hours): Temp Pulse Resp BP Pulse Ox 97.5 F L 68 25 H 140/79 97 11/17/17 16:00 11/17/17 12:00 11/17/17 12:00 11/17/17 12:00 11/17/17 16:00 - Medications Medications: Current Medications Albuterol/Ipratropium (Duoneb 3 Mg/0.5 Mg (3 Ml) Ud) 3 ml INH RQ12 [facility] Last Admin: 11/17/17 07:54 Dose: 3 ml Artificial Tears (Artificial Tears) 0 ml OU BID [facility] Last Admin: 11/17/17 09:17 Dose: 1 drop Heparin Sodium (Porcine) (Heparin) 5,000 units SC Q12H [facility] Last Admin: 11/17/17 09:16 Dose: 5,000 units Lidocaine (Lidoderm) 1 ea TD DAILY [facility] Last Admin: 11/17/17 09:16 Dose: 1 ea Methylprednisolone (Solu-Medrol) 60 mg IV Q8H [facility] Last Admin: 11/17/17 14:24 Dose: 60 mg Pantoprazole Sodium (Protonix Ec Tab) 40 mg PO DAILY [facility] Last Admin: 11/17/17 09:16 Dose: 40 mg Pyridostigmine [place] (Mestinon Tab) 60 mg PO Q8H [facility] Last Admin: 11/17/17 14:35 Dose: 60 mg Temazepam (Restoril) 15 mg PO HS [facility] Last Admin: 11/16/17 22:36 Dose: 15 mg - Labs Labs: 11/17/17 06:22 11/17/17 06:22 PT 12.3 SECONDS (9.7-12.2) H 11/09/17 16:25 INR 1.1 11/09/17 16:25 APTT 29 SECONDS (21-34) 11/10/17 06:50
[2017-11-17] MEDS ORDERED: Pneumococcal 23-Valent Vaccine SC ONE (17:18)
[2017-11-17 17:30] VITALS: BP 141/86
[2017-11-17 19:36] VITALS: PULSE 60; RESP 24; O2SAT 96
== END 2017-11-17 21:35 | disposition home or self-care (01) | DRG 533 ==
LOC: C.ER 16:03 → C.9I 16:59
PROVIDERS: ADMIT Internal Medicine; ATTEND Internal Medicine
PROC: 5A1935Z Respiratory Ventilation, Less than 24 Consecutive Hours (ICD-10-PCS; principal; 2017-11-09)
PROC: 0BH17EZ Insertion of Endotracheal Airway into Trachea, Via Natural or Artificial Opening (ICD-10-PCS; 2017-11-09)
PROC: 0W993ZZ Drainage of Right Pleural Cavity, Percutaneous Approach (ICD-10-PCS; 2017-11-11)
PROC: BB4BZZZ Ultrasonography of Pleura (ICD-10-PCS; 2017-11-11)
DX: G70.01 Myasthenia gravis with (acute) exacerbation (principal); J96.02 Acute respiratory failure with hypercapnia; J90 Pleural effusion, not elsewhere classified; R13.10 Dysphagia, unspecified; J45.909 Unspecified asthma, uncomplicated; E78.5 Hyperlipidemia, unspecified; D63.8 Anemia in other chronic diseases classified elsewhere; D15.0 Benign neoplasm of thymus; R79.89 Other specified abnormal findings of blood chemistry; R77.1 Abnormality of globulin; Z90.49 Acquired absence of other specified parts of digestive tract

== ENCOUNTER 2018-02-25 00:23 | Inpatient (IN) | payer MEDICAID ==
[2018-02-25 00:24] VITALS: BMI 26.4
[2018-02-25] MEDS ORDERED: Sodium Chloride 0.9% 1,000 ML IV ONE ×2 (00:54→00:59)
--- NOTE | 2018-02-25 00:58 | C.PDOC ---
History Of Present Illness 48 year old female with PMHx of myasthenia gravis presents to the ED c/o SOB. Patient was recently discharged from [facility] where she was admitted for similar complaints. Patient was intubated last week. Patient denies fever, chills, nausea, vomit, CP, weakness, numbness. Chief Complaint (Nursing): Abdominal Pain History Per: Patient History/Exam Limitations: no limitations Onset/Duration Of Symptoms: Days Current Symptoms Are (Timing): Still Present Exacerbating Factors: None Last Bowel Movement: Today Additional History Per: Patient Abnormal Vaginal Bleeding: No Past Medical History Reviewed: Historical Data, Nursing Documentation, Vital Signs Vital Signs: Last Vital Signs Temp Pulse Resp BP Pulse Ox 100 02/25/18 01:53 - Medical History PMH: Anxiety, Asthma, Depression Denies: Chronic Kidney Disease Other PMH: myasthenia gravis Surgical History: Appendectomy Denies: Pacemaker - [facility] Procedures ASSISTANCE WITH RESPIRATORY VENTILATION, <24 HRS, CPAP (01/24/18) DRAINAGE OF RIGHT PLEURAL CAVITY, PERCUTANEOUS APPROACH (11/09/17) FALLOP TUBE REPAIR NEC (08/24/03) FALLOPIAN TUBE INSUFFLAT (08/24/03) INSERTION OF ENDOTRACHEAL AIRWAY INTO TRACHEA, VIA OPENING (11/09/17) INSERTION OF INFUSION DEV INTO INF VENA CAVA, PERC APPROACH (01/24/18) INTRODUCE OTH ANTINEOPLASTIC IN CENTRAL VEIN, PERC (01/24/18) LAPAROSCOP LYSIS-PERITONEAL ADHES (08/24/03) RESPIRATORY VENTILATION, LESS THAN 24 CONSECUTIVE HOURS (11/09/17) TRANSFUSE OF NONAUT GLOBULIN INTO PERIPH VEIN, PERC APPROACH (12/10/17) ULTRASONOGRAPHY OF PLEURA (11/09/17) ULTRASONOGRAPHY OF RIGHT JUGULAR VEINS, GUIDANCE (01/24/18) Family History: States: Unknown Family Hx - Social History Hx Alcohol Use: No Hx Substance Use: No - Immunization History Hx Tetanus Toxoid Vaccination: No Hx Influenza Vaccination: No Hx Pneumococcal Vaccination: No Review Of Systems Constitutional: Negative for: Fever, Chills Cardiovascular: Negative for: Chest Pain, Palpitations Respiratory: Positive for: Shortness of Breath. Negative for: Cough Gastrointestinal: Negative for: Nausea, Vomiting, Abdominal Pain Skin: Negative for: Rash Neurological: Negative for: Weakness, Numbness Physical Exam - Physical Exam Appears: Non-toxic, In Acute Distress Skin: Normal Color, Warm, Dry Head: Atraumatic, Normacephalic Eye(s): bilateral: Normal Inspection Oral Mucosa: Moist Neck: Normal ROM, Supple Chest: Symmetrical Cardiovascular: Rhythm Regular, No Murmur Respiratory: Normal Breath Sounds, No Rales, No Rhonchi, No Wheezing, Other ( dyspnic ) Gastrointestinal/Abdominal: Soft, No Tenderness, No Guarding, No Rebound Extremity: Normal ROM, No Tenderness, No Swelling Neurological/Psych: Oriented x3, Normal Speech, Other (no focal deficits) Gait: Steady ED Course And Treatment - Laboratory Results Result Diagrams: 02/25/18 00:58 02/25/18 00:58 ECG: Interpreted By Me, Viewed By Me ECG Rhythm: Sinus Rhythm, 1st Degree HB ECG Interpretation: Normal, No Acute Changes Interpretation Of ECG: NSR, 1st degree AV block Rate From EC (BPM) O2 Sat by Pulse Oximetry: 100 (ON RA) Pulse Ox Interpretation: Normal Medical Decision Making Medical Decision Making: Plan: * ABG * EKG * CXR * Labs * Mestinon 60 mg PO * Drortlapm6m 125 mg IVPB * IV fluids * Blood culture * BIpap Disposition Discussed With : Niles Ledezma Doctor Will See Patient In The: Hospital - Disposition Referrals: Niles Ledezma MD [Primary Care Provider] - Disposition: HOSPITALIZED Disposition Time: 01:51 Condition: GUARDED Forms: [facility] (Kenyan) - POA Present On Arrival: None - Clinical Impression Clinical Impression: Respiratory distress, acute, Myasthenia exacerbation - Scribe Statement The provider has reviewed the documentation as recorded by the Scribe Dave Mujica All medical record entries made by the Scribe were at my direction and personally dictated by me. I have reviewed the chart and agree that the record accurately reflects my personal performance of the history, physical exam, medical decision making, and the department course for this patient. I have also personally directed, reviewed, and agree with the discharge instructions and disposition.
[2018-02-25 01:01] LABS: BASO # 0.1 K/uL (0.0-0.2); BASO % 0.7 % (0.0-2.0); EOS # 0.4 K/uL (0.0-0.7); EOS % 2.9 % (0.0-4.0); HEMOGLOBIN 10.2 g/dL (11.0-16.0); LYMPH # 1.9 K/uL (1.0-4.3); MEAN CELL VOLUME 90.2 fL (81.0-99.0); MEAN CORPUSCULAR HEMOGLOBIN 29.7 pg (27.0-31.0); MEAN CORPUSCULAR HGB CONC 32.9 g/dL (33.0-37.0); MEAN PLATELET VOLUME 6.7 fL (7.2-11.7); MONO # 1.3 K/uL (0.0-0.8); MONO % 9.1 % (0.0-10.0); NEUT # 10.9 K/uL (1.8-7.0); NEUT % 74.3 % (50.0-75.0); RBC 3.43 Mil/uL (3.80-5.20); RED CELL DISTRIBUTION WIDTH 18.8 % (11.5-14.5); WHITE BLOOD COUNT 14.7 K/uL (4.8-10.8)
[2018-02-25] MEDS ORDERED: methylPREDNISolone 125 MG in Sodium Chloride 0.9% 100 ML IVPB ONE (01:01)
[2018-02-25 01:09] LABS: PROTHROMBIN TIME 10.6 SECONDS (9.7-12.2)
[2018-02-25 01:14] LABS: ALB/GLOB RATIO 1.7 (1.0-2.1); ALBUMIN 4.6 g/dL (3.5-5.0); ALT/SGPT 33 U/L (9-52); AST/SGOT 23 U/L (14-36); BLOOD UREA NITROGEN 18 mg/dL (7-17); CALCIUM 9.2 mg/dl (8.6-10.4); GFR AFRICAN-AMERICAN > 60; GFR NON-AFRICAN AMERICAN > 60; LIPASE 868 U/L (23-300)
--- NOTE | 2018-02-25 02:13 | CP.CCUPN ---
CCU Subjective - Physician Review Subjective (Free Text): 02/25/18 07:01 The Patient was seen and examined at the bedside, Medical records reviewed, and management issues were discussed and formulated with the house staff. Events reviewed 47 Y/O F with PMHx of Anxiety, Asthma, Depression and myasthenia gravis. Who presents to the Emergency department with complaint of worsening SOB and abdominal pain. Patient denies fever/chills, nausea, vomiting, weakness, numbness. Upon arrival to ER, she was in Respiratory distress, placed on BIPAP, started on AV steroids, she is feeling better now. Patient was recently discharged from [facility] where she was admitted for acute, Myasthenia exacerbation, and she was intubated there. Patient was discharged on Thursday 02/22, did not miss any of her medications Currently she is feeling better, getting admitted to the ICU for possible acute Myasthenia exacerbation Critical Care Time Spent (in minutes): 45 CCU Objective - Vital Signs / Intake & Output Vital Signs (Last 4 hours): Vital Signs Pulse Ox 02/25/18 01:53 100 Intake and Output (Last 8hrs): Intake & Output 02/24/18 02/24/18 02/25/18 14:59 22:59 06:59 Weight 138 lb - Physical Exam Head: Positive for: Atraumatic, Normocephalic Pupils: Positive for: PERRL Extroacular Muscles: Positive for: EOMI Conjunctiva: Positive for: Normal. Negative for: Injected, Icteric Mouth: Positive for: Moist Mucous Membranes Nose (Internal): Positive for: Normal Inspection Neck: Positive for: Normal Range of Motion, Trachea Midline. Negative for: Meningeal Signs, MIDLINE TENDERNESS, Paraspinal Tenderness, JVD, Lymphadenopathy , Bruit, Other Respiratory/Chest: Positive for: Clear to Auscultation, Good Air Exchange. Negative for: Respiratory Distress, Accessory Muscle Use, Wheezes, Decreased Breath Sounds, Rales, Retracting, Rhonchi, Tachypneic Cardiovascular: Positive for: Regular Rate and Rhythm, Normal S1, S2, Peripheal Pulses Present. Negative for: Murmurs, Irregular Rhythm, Tachycardic, Bradycardic Abdomen: Positive for: Normal Bowel Sounds. Negative for: Tenderness, Distention Neurological: Positive for: GCS=15, CN II-XII Intact, Speech Normal, Motor Func Grossly Intact, Normal Sensory Function Psychiatric: Positive for: Alert, Oriented x 3, Normal Insight, Normal Concentration - Medications Active Medications: Active Medications Generic Name Dose Route Start Last Admin Trade Name Mirella PRN Reason Stop Dose Admin Sodium Chloride 1,000 mls @ 100 mls/hr 02/25/18 00:59 02/25/18 01:03 Sodium Chloride 0.9% IV 02/25/18 10:58 100 mls/hr .Q10H ONE Administration Potassium Chloride 10 meq in 100 mls @ 100 mls/hr 02/25/18 01:35 02/25/18 01: 59 Potassium Chloride 10 Meq/100 Ml IVPB 02/25/18 02:34 100 mls/hr ONCE ONE Administration Pyridostigmine [place] 60 mg 02/25/18 05:00 Mestinon Tab PO QID [facility] - Patient Studies Lab Studies: Lab Studies 02/25/18 02/25/18 02/25/18 Range/Units 00:58 00:58 00:58 WBC 14.7 H (4.8-10.8) K/uL RBC 3.43 L (3.80-5.20) Mil/uL Hgb 10.2 L (11.0-16.0) g/dL Hct 30.9 L (34.0-47.0) % MCV 90.2 D (81.0-99.0) fL MCH 29.7 (27.0-31.0) pg MCHC 32.9 L (33.0-37.0) g/dL RDW 18.8 H (11.5-14.5) % Plt Count 348 (130-400) K/uL MPV 6.7 L (7.2-11.7) fL Neut % (Auto) 74.3 (50.0-75.0) % Lymph % (Auto) 13.0 L (20.0-40.0) % [place] % (Auto) 9.1 (0.0-10.0) % Eos % (Auto) 2.9 (0.0-4.0) % Baso % (Auto) 0.7 (0.0-2.0) % Neut # (Auto) 10.9 H (1.8-7.0) K/uL Lymph # (Auto) 1.9 (1.0-4.3) K/uL [place] # (Auto) 1.3 H (0.0-0.8) K/uL Eos # (Auto) 0.4 (0.0-0.7) K/uL Baso # (Auto) 0.1 (0.0-0.2) K/uL PT 10.6 (9.7-12.2) SECONDS INR 1.0 APTT 34 (21-34) SECONDS Sodium 141 (132-148) mmol/L Potassium 3.3 L (3.6-5.2) mmol/L Chloride 103 (98-107) mmol/L Carbon Dioxide 22 (22-30) mmol/L Anion Gap 19 (10-20) BUN 18 H (7-17) mg/dL Creatinine 0.7 (0.7-1.2) mg/dL Est GFR ( Amer) > 60 Est GFR (Non-Af Amer) > 60 Random Glucose 156 H (65-105) mg/dL Calcium 9.2 (8.6-10.4) mg/dl Total Bilirubin 0.4 (0.2-1.3) mg/dL AST 23 (14-36) U/L ALT 33 (9-52) U/L Alkaline Phosphatase 40 (38-126) U/L Total Protein 7.2 (6.3-8.3) g/dL Albumin 4.6 (3.5-5.0) g/dL Globulin 2.7 (2.2-3.9) gm/dL Albumin/Globulin Ratio 1.7 (1.0-2.1) Lipase 868 H (23-300) U/L Laboratory Results - last 24 hr 02/25/18 02/25/18 02/25/18 00:58 00:58 00:58 WBC 14.7 H RBC 3.43 L Hgb 10.2 L Hct 30.9 L MCV 90.2 D MCH 29.7 MCHC 32.9 L RDW 18.8 H Plt Count 348 MPV 6.7 L Neut % (Auto) 74.3 Lymph % (Auto) 13.0 L [place] % (Auto) 9.1 Eos % (Auto) 2.9 Baso % (Auto) 0.7 Neut # (Auto) 10.9 H Lymph # (Auto) 1.9 [place] # (Auto) 1.3 H Eos # (Auto) 0.4 Baso # (Auto) 0.1 PT 10.6 INR 1.0 APTT 34 Sodium 141 Potassium 3.3 L Chloride 103 Carbon Dioxide 22 Anion Gap 19 BUN 18 H Creatinine 0.7 Est GFR ( Amer) > 60 Est GFR (Non-Af Amer) > 60 Random Glucose 156 H Calcium 9.2 Total Bilirubin 0.4 AST 23 ALT 33 Alkaline Phosphatase 40 Total Protein 7.2 Albumin 4.6 Globulin 2.7 Albumin/Globulin Ratio 1.7 Lipase 868 H EKG/Cardiology Studies: Cardiology / EKG Studies 02/25/18 00:47 EKG [ELECTROCARDIOGRAM] Stat Comment: Mode Of Transportation: STRETCHER Reason For Exam: ABD PAIN Fingerstick Blood Sugar Results: 141 Review of Systems - Constitutional Constitutional: Weakness. absent: Fever, Chills, Sweats - Cardiovascular Cardiovascular: absent: Chest Pain, Chest Pain at Rest, Chest Pain with Activity , Claudication, Diaphoresis - Respiratory Respiratory: Cough, Dyspnea, Dyspnea on Exertion. absent: Hemoptysis, Wheezing , Snoring, Chest Congestion - Gastrointestinal Gastrointestinal: absent: Abdominal Pain, Coffee Ground Emesis, Nausea, Vomiting - Neurological Neurological: Numbness. absent: Confusion, Convulsions, Disequilibrium, Dizziness, Focal Weakness, Headaches Critical Care Progress Note - Extremities/Vascular Does the Patient have a Central Venous Catheter?: Yes Does the Patient need a Central Venous Catheter?: Yes Does the Patient have a [place] Catheter?: No Does the Patient need a [place] Catheter?: No Assessment/Plan (1) Acute respiratory distress Current Visit: Yes Status: Acute Priority: High (2) Myasthenia exacerbation Current Visit: Yes Status: Acute Priority: High Onset Date: ~11/09/17 (3) Myasthenia gravis status post thymectomy Current Visit: Yes Status: Chronic Priority: High Onset Date: ~09/27/17 (4) Shortness of breath Current Visit: Yes Status: Resolved Priority: High
[2018-02-25] MEDS: Sodium Chloride 0.9% 1,000 ML IV SCH ×3 (03:00→22:00)
--- NOTE | 2018-02-25 08:18 | CP.PCM.CON ---
History of Present Illness - History of Present Illness History of Present Illness: CONSULT DICTATED MYASTHENIC CRISIS - IMPENDING RESPIRATORY FAILURE GEN WEAKNESS EOM DECREASED GENERALIZED WEAKNESS 3/5 ON BIPAP EFFORTLESS BREATHING CONTINUE MESTINON WITH STEROIDS IF RESPIRATORY STATUS GET WORSEN - CONSIDER ELECTIVE INTUBATION BLOOD WORK UP PER ORDER RECENT PLEX WILL ORDER IVIG. Past Patient History - Infectious Disease Hx of Infectious Diseases: None - Tetanus Immunizations Tetanus Immunization: Unknown - Past Medical History & Family History Past Medical History?: Yes - Past Social History Smoking Status: Never Smoked - CARDIAC Hx Pacemaker: No - PULMONARY Hx Asthma: Yes - NEUROLOGICAL Hx Neurological Disorder: Yes Other/Comment: hx temporary paralysis. Myasthenia gravis - HEENT Hx HEENT Problems: Yes (blurred vision) - RENAL Hx Chronic Kidney Disease: No - ENDOCRINE/METABOLIC Hx Endocrine Disorders: No - HEMATOLOGICAL/ONCOLOGICAL Hx Blood Disorders: Yes Other/Comment: becomes fatigues after ivig infusions, 2x p/wk x 3 wks - INTEGUMENTARY Hx Dermatological Problems: Yes Other/Comment: mid chest scar, rcw vascular access dressing dry and intact - MUSCULOSKELETAL/RHEUMATOLOGICAL Hx Falls: Yes (recent fall) - GASTROINTESTINAL Hx Gastrointestinal Disorders: Yes HX Swallowing Problems: Yes (swallowing and eating) - GENITOURINARY/GYNECOLOGICAL Hx Genitourinary Disorders: No - PSYCHIATRIC Hx Anxiety: Yes Hx Depression: Yes Hx Substance Use: No - SURGICAL HISTORY Hx Appendectomy: Yes - ANESTHESIA Hx Anesthesia: Yes Hx Anesthesia Reactions: Yes (TROUBLE WAKING.MAY DEVELOP PROBLEMS R/T MYASTHENIA ) Hx Malignant Hyperthermia: No Meds Allergies/Adverse Reactions: Allergies Allergy/AdvReac Type Severity Reaction Status Date / Time cephalexin [From Keflex] Allergy Severe RASH Verified 02/25/18 00:30 codeine Allergy Severe RASH/SOB Verified 02/25/18 00:30 Iodine and Iodide Containing Allergy Severe ANAPHYLAXIS Verified 02/25/18 00:30 Produc latex Allergy Severe ANAPHYLAXIS Verified 02/25/18 00:30 oxycodone [From Percocet] Allergy Severe ANAPHYLAXIS Verified 02/25/18 00:30 peanut Allergy Severe ANAPHYLAXIS Verified 02/25/18 00:30 Penicillins Allergy Severe RASH/SOB Verified 02/25/18 00:30 shellfish derived Allergy ANAPHYLAXIS Verified 02/25/18 00:30 - Medications Medications: Current Medications Albuterol (Ventolin Hfa 90 Mcg/Actuation (8 G)) 1 puff INH TID PRN PRN Reason: Shortness of Breath Enoxaparin Sodium (Lovenox) 40 mg SC DAILY [facility] Sodium Chloride (Sodium Chloride 0.9%) 1,000 mls @ 100 mls/hr IV .Q10H [facility] Last Admin: 02/25/18 03:00 Dose: 100 mls/hr Methylprednisolone (Solu-Medrol) 60 mg IV Q8 [facility] Last Admin: 02/25/18 05:23 Dose: 60 mg Ondansetron HCl (Zofran Inj) 4 mg IVP Q4 PRN PRN Reason: Nausea/Vomiting Pantoprazole Sodium (Protonix Inj) 40 mg IVP DAILY [facility] Pyridostigmine [place] (Mestinon Tab) 60 mg PO QID [facility] Last Admin: 02/25/18 05:14 Dose: 60 mg Results - Vital Signs Recent Vital Signs: Last Vital Signs Temp 97.8 F 02/25/18 03:00 Pulse 65 02/25/18 05:41 Resp 22 02/25/18 02:20 BP 130/68 02/25/18 02:20 Pulse Ox 100 02/25/18 03:36 - Labs Result Diagrams: 02/25/18 00:58 02/25/18 00:58 Labs: Laboratory Results - last 24 hr 02/25/18 02/25/18 02/25/18 00:58 00:58 00:58 WBC 14.7 H RBC 3.43 L Hgb 10.2 L Hct 30.9 L MCV 90.2 D MCH 29.7 MCHC 32.9 L RDW 18.8 H Plt Count 348 MPV 6.7 L Neut % (Auto) 74.3 Lymph % (Auto) 13.0 L [place] % (Auto) 9.1 Eos % (Auto) 2.9 Baso % (Auto) 0.7 Neut # (Auto) 10.9 H Lymph # (Auto) 1.9 [place] # (Auto) 1.3 H Eos # (Auto) 0.4 Baso # (Auto) 0.1 PT 10.6 INR 1.0 APTT 34 Sodium 141 Potassium 3.3 L Chloride 103 Carbon Dioxide 22 Anion Gap 19 BUN 18 H Creatinine 0.7 Est GFR ( Amer) > 60 Est GFR (Non-Af Amer) > 60 Random Glucose 156 H Calcium 9.2 Total Bilirubin 0.4 AST 23 ALT 33 Alkaline Phosphatase 40 Total Protein 7.2 Albumin 4.6 Globulin 2.7 Albumin/Globulin Ratio 1.7 Lipase 868 H
[2018-02-25] MEDS ORDERED: Potassium Chloride 20 mEq ER Tab PO ONE (08:23)
--- NOTE | 2018-02-25 08:32 | RAD ---
Date of service: 02/25/2018 HISTORY: Abdominal pain, myasthenia COMPARISON: 02/25/2018. FINDINGS: The right MediPort terminates in the SVC. LUNGS: The lungs are clear. PLEURA: No significant pleural effusion identified, no pneumothorax apparent. CARDIOVASCULAR: The heart is normal in size. Status post median sternotomy. OSSEOUS STRUCTURES: No significant abnormalities. VISUALIZED UPPER ABDOMEN: Normal. OTHER FINDINGS: Chronic elevation of the right hemidiaphragm. Partially calcified bilateral breast implants. IMPRESSION: No active pulmonary disease.
--- NOTE | 2018-02-25 08:53 | RAD ---
Date of service: 02/25/2018 HISTORY: ABD PAIN, MYASTHENIA GRAVIS,, DIFF WITH BREATHING COMPARISON: No prior. FINDINGS: The right MediPort terminates at the cavoatrial junction. LUNGS: The lungs are well inflated and clear. PLEURA: No significant pleural effusion identified, no pneumothorax apparent. CARDIOVASCULAR: The heart is normal in size. Status post median sternotomy. OSSEOUS STRUCTURES: No significant abnormalities. VISUALIZED UPPER ABDOMEN: Normal. OTHER FINDINGS: Redemonstration of peripherally calcified breast implants. IMPRESSION: No active pulmonary disease.
--- NOTE | 2018-02-25 09:55 | CP.CCUPN ---
<Leonor Lemus - Last Filed: 02/25/18 10:16> CCU Subjective - Physician Review Events Since Last Encounter (Free Text): PGU-3 ICU progress note 02/25/18 09:53 Patient was admitted earlier this morning for respiratory distress, nausea and vomiting. Patient was suspected to have Myasthenia gravis crisis. Patient is currently feeling better with bipap. States the sob has improved, no cp. Nausea has improved and vomiting has resolved. No fever or chills. Critical Care Time Spent (in minutes): 45 CCU Objective - Vital Signs / Intake & Output Vital Signs (Last 4 hours): Vital Signs Pulse 02/25/18 08:59 60 O2 sat 10O on bipap 06/16, fio2 60%. Intake and Output (Last 8hrs): Intake & Output 02/24/18 02/25/18 02/25/18 22:59 06:59 14:59 Intake Total 400 100 Output Total 300 Balance 100 100 Weight 141 lb Intake: Intake, IV Amount 400 100 rt chest port a cath 400 100 Output: Urine 300 Urine, Voided 300 - Physical Exam Head: Positive for: Atraumatic, Normocephalic Pupils: Positive for: PERRL Extroacular Muscles: Positive for: EOMI Conjunctiva: Positive for: Normal. Negative for: Injected, Icteric Mouth: Positive for: Moist Mucous Membranes Nose (Internal): Positive for: Normal Inspection Neck: Positive for: Normal Range of Motion, Trachea Midline. Negative for: Meningeal Signs, MIDLINE TENDERNESS, Paraspinal Tenderness, JVD, Lymphadenopathy , Bruit, Other Respiratory/Chest: Positive for: Clear to Auscultation, Good Air Exchange. Negative for: Respiratory Distress, Accessory Muscle Use, Wheezes, Decreased Breath Sounds, Rales, Retracting, Rhonchi, Tachypneic Cardiovascular: Positive for: Regular Rate and Rhythm, Normal S1, S2, Peripheal Pulses Present. Negative for: Murmurs, Irregular Rhythm, Tachycardic, Bradycardic Abdomen: Positive for: Normal Bowel Sounds. Negative for: Tenderness, Distention Neurological: Positive for: GCS=15, CN II-XII Intact, Speech Normal, Motor Func Grossly Intact, Normal Sensory Function Psychiatric: Positive for: Alert, Oriented x 3, Normal Insight, Normal Concentration - Medications Active Medications: Active Medications Generic Name Dose Route Start Last Admin Trade Name Freq PRN Reason Stop Dose Admin Albuterol Sulfate 1 mg 02/25/18 14:00 Albuterol 0.083% Inhal Myrtle (2.5 Mg/3 Ml) Ud INH RTID PRN Shortness of Breath Enoxaparin Sodium 40 mg 02/25/18 10:00 Lovenox SC DAILY DIONICIO Sodium Chloride 1,000 mls @ 100 mls/hr 02/25/18 02:15 02/25/18 03:00 Sodium Chloride 0.9% IV 100 mls/hr .Q10H DIONICIO Administration Potassium Chloride 10 meq in 100 mls @ 100 mls/hr 02/25/18 10:00 Potassium Chloride 10 Meq/100 Ml IVPB 02/25/18 12:59 Q2 DIONICIO Methylprednisolone 60 mg 02/25/18 06:00 02/25/18 05:23 Solu-Medrol IV 60 mg Q8 DIONICIO Administration Ondansetron HCl 4 mg 02/25/18 07:52 Zofran Inj IVP Q4 PRN Nausea/Vomiting Pantoprazole Sodium 40 mg 02/25/18 10:00 Protonix Inj IVP DAILY DIONICIO Pyridostigmine [place] 60 mg 02/25/18 11:00 Mestinon Tab PO Q6H DIONICIO - Patient Studies Lab Studies: Lab Studies 02/25/18 02/25/18 02/25/18 Range/Units 00:58 00:58 00:58 WBC 14.7 H (4.8-10.8) K/uL RBC 3.43 L (3.80-5.20) Mil/uL Hgb 10.2 L (11.0-16.0) g/dL Hct 30.9 L (34.0-47.0) % MCV 90.2 D (81.0-99.0) fL MCH 29.7 (27.0-31.0) pg MCHC 32.9 L (33.0-37.0) g/dL RDW 18.8 H (11.5-14.5) % Plt Count 348 (130-400) K/uL MPV 6.7 L (7.2-11.7) fL Neut % (Auto) 74.3 (50.0-75.0) % Lymph % (Auto) 13.0 L (20.0-40.0) % [place] % (Auto) 9.1 (0.0-10.0) % Eos % (Auto) 2.9 (0.0-4.0) % Baso % (Auto) 0.7 (0.0-2.0) % Neut # (Auto) 10.9 H (1.8-7.0) K/uL Lymph # (Auto) 1.9 (1.0-4.3) K/uL [place] # (Auto) 1.3 H (0.0-0.8) K/uL Eos # (Auto) 0.4 (0.0-0.7) K/uL Baso # (Auto) 0.1 (0.0-0.2) K/uL PT 10.6 (9.7-12.2) SECONDS INR 1.0 APTT 34 (21-34) SECONDS Sodium 141 (132-148) mmol/L Potassium 3.3 L (3.6-5.2) mmol/L Chloride 103 (98-107) mmol/L Carbon Dioxide 22 (22-30) mmol/L Anion Gap 19 (10-20) BUN 18 H (7-17) mg/dL Creatinine 0.7 (0.7-1.2) mg/dL Est GFR ( Amer) > 60 Est GFR (Non-Af Amer) > 60 Random Glucose 156 H (65-105) mg/dL Calcium 9.2 (8.6-10.4) mg/dl Total Bilirubin 0.4 (0.2-1.3) mg/dL AST 23 (14-36) U/L ALT 33 (9-52) U/L Alkaline Phosphatase 40 (38-126) U/L Total Protein 7.2 (6.3-8.3) g/dL Albumin 4.6 (3.5-5.0) g/dL Globulin 2.7 (2.2-3.9) gm/dL Albumin/Globulin Ratio 1.7 (1.0-2.1) Lipase 868 H (23-300) U/L Laboratory Results - last 24 hr 02/25/18 02/25/18 02/25/18 00:58 00:58 00:58 WBC 14.7 H RBC 3.43 L Hgb 10.2 L Hct 30.9 L MCV 90.2 D MCH 29.7 MCHC 32.9 L RDW 18.8 H Plt Count 348 MPV 6.7 L Neut % (Auto) 74.3 Lymph % (Auto) 13.0 L [place] % (Auto) 9.1 Eos % (Auto) 2.9 Baso % (Auto) 0.7 Neut # (Auto) 10.9 H Lymph # (Auto) 1.9 [place] # (Auto) 1.3 H Eos # (Auto) 0.4 Baso # (Auto) 0.1 PT 10.6 INR 1.0 APTT 34 Sodium 141 Potassium 3.3 L Chloride 103 Carbon Dioxide 22 Anion Gap 19 BUN 18 H Creatinine 0.7 Est GFR ( Amer) > 60 Est GFR (Non-Af Amer) > 60 Random Glucose 156 H Calcium 9.2 Total Bilirubin 0.4 AST 23 ALT 33 Alkaline Phosphatase 40 Total Protein 7.2 Albumin 4.6 Globulin 2.7 Albumin/Globulin Ratio 1.7 Lipase 868 H EKG/Cardiology Studies: Cardiology / EKG Studies 02/25/18 00:47 EKG [ELECTROCARDIOGRAM] Stat Comment: Mode Of Transportation: STRETCHER Reason For Exam: ABD PAIN Fingerstick Blood Sugar Results: 141 Results Reviewed to Date: Yes Review of Systems - Review of Systems Systems not reviewed;Unavailable: Other (on BIPAP) All systems: reviewed and no additional remarkable complaints except Critical Care Progress Note - Ventilator Checklist Head of Bed 30 Degrees: Yes - Extremities/Vascular Insertion Site: Right sided chemo port - Prophylaxis GI Prophylaxis GI: PPI - Prophylaxis DVT Prophylaxis DVT: Lovenox Assessment/Plan - Assessment and Plan (Free Text) Assessment: Patient is a 48 y/o with PMH of malignant thymoma s/p resection, on chemo, myasthenia gravis, history of multiple admissions for myasthenia crisis and flare, recent admission and discharge from [facility] where patient was intubated and was giving plasmapheresis, history IVIG presenting with worsening in shortness of breath along with nausea, vomiting and abdominal pain. Patient was admitted to ICU for possible myasthenia flare. Patient refused IVIG thus patient was started on solumedrol and her mestinon was resumed. Patient is currently comfortable on bipap. Plan: Neurology: at baseline Pulm: Myasthenia gravis exacerbation R/o infections, r/o medication induced U utox ordered), r/o medication non compliance Patient is currently comfortable on bipap, saturating in the 100% on 60 % fio2 Will continue with Ventolin, Mestinon was resumed, on solumedrol Head of bed above 35 degrees Pulm following Cardiac: maintain map above 65% ID: Afebrile, leukocytosis due to steroid. bcx sent, ua ordered. No clinical signs of sepsis at this time, will monitor off of abx GI: r/o mild pancreatitis due to elevated lipase, r/o gastritis on IVF- NS @ 100 Abdominal u/s ordered liquid diet as tolerated zofran prn for nausea and vomiting protonix Renal: hypokalemia- will replete, will check magnesium Heme: Normocytic anemia- no active signs of bleeding, h/h at baseline Endo: hyperglycemia likely due to steroid, will order insulin sliding scale low dose, and fingersticks achs. DVT prophylaxis: Lovenox sc Discussed with the attending Leonor ROWLEY- PGY3 - Date & Time Date: 02/25/18 Time: 10:10 <Christa Parra - Last Filed: 02/25/18 18:32> CCU Objective - Vital Signs / Intake & Output Intake and Output (Last 8hrs): Intake & Output 02/25/18 02/25/18 02/25/18 06:59 14:59 22:59 Intake Total 400 300 100 Output Total 300 Balance 100 300 100 Weight 141 lb Intake: Intake, IV Amount 400 300 100 rt chest port a cath 400 300 100 Output: Urine 300 Urine, Voided 300 - Medications Active Medications: Active Medications Generic Name Dose Route Start Last Admin Trade Name Freq PRN Reason Stop Dose Admin Albuterol Sulfate 1 mg 02/25/18 12:00 Albuterol 0.083% Inhal Myrtle (2.5 Mg/3 Ml) Ud INH RQ6 DIONICIO Enoxaparin Sodium 40 mg 02/25/18 10:00 02/25/18 09:56 Lovenox SC 40 mg DAILY DIONICIO Administration Sodium Chloride 1,000 mls @ 100 mls/hr 02/25/18 02:15 02/25/18 03:00 Sodium Chloride 0.9% IV 100 mls/hr .Q10H DIONICIO Administration Immune Globulin 130 gm 02/25/18 18:13 Octagam 5% IV 02/25/18 18:14 ONCE ONE Insulin Aspart 0 unit 02/25/18 11:30 02/25/18 11:30 Novolog SC Not Given ACHS [facility] Protocol Methylprednisolone 60 mg 02/25/18 06:00 02/25/18 13:52 Solu-Medrol IV 60 mg Q8 DIONICIO Administration Ondansetron HCl 4 mg 02/25/18 07:52 Zofran Inj IVP Q4 PRN Nausea/Vomiting Pantoprazole Sodium 40 mg 02/25/18 10:00 02/25/18 09:55 Protonix Inj IVP 40 mg DAILY DIONICIO Administration Pyridostigmine [place] 60 mg 02/25/18 11:00 02/25/18 17:55 Mestinon Tab PO 60 mg Q6H DIONICIO Administration - Patient Studies Lab Studies: Lab Studies 02/25/18 02/25/18 02/25/18 Range/Units 10:24 10:24 00:58 WBC 9.5 (4.8-10.8) K/uL RBC 3.24 L (3.80-5.20) Mil/uL Hgb 9.9 L (11.0-16.0) g/dL Hct 29.2 L (34.0-47.0) % MCV 90.1 (81.0-99.0) fL MCH 30.5 (27.0-31.0) pg MCHC 33.9 (33.0-37.0) g/dL RDW 18.6 H (11.5-14.5) % Plt Count 331 (130-400) K/uL MPV 7.0 L (7.2-11.7) fL Neut % (Auto) 91.8 H (50.0-75.0) % Lymph % (Auto) 7.4 L (20.0-40.0) % [place] % (Auto) 0.7 (0.0-10.0) % Eos % (Auto) 0.0 (0.0-4.0) % Baso % (Auto) 0.1 (0.0-2.0) % Neut # (Auto) 8.8 H (1.8-7.0) K/uL Lymph # (Auto) 0.7 L (1.0-4.3) K/uL [place] # (Auto) 0.1 (0.0-0.8) K/uL Eos # (Auto) 0.0 (0.0-0.7) K/uL Baso # (Auto) 0.0 (0.0-0.2) K/uL Neutrophils % (Manual) 95 H (50-75) % Lymphocytes % (Manual) 5 L (20-40) % Monocytes % (Manual) TEST NOT PERFORMED Platelet Estimate Normal (NORMAL) Hypochromasia (manual) Slight Poikilocytosis (manual Slight Anisocytosis (manual) Slight PT (9.7-12.2) SECONDS INR APTT (21-34) SECONDS Sodium 139 141 (132-148) mmol/L Potassium 3.8 3.3 L (3.6-5.2) mmol/L Chloride 106 103 (98-107) mmol/L Carbon Dioxide 24 22 (22-30) mmol/L Anion Gap 13 19 (10-20) BUN 13 18 H (7-17) mg/dL Creatinine 0.5 L 0.7 (0.7-1.2) mg/dL Est GFR ( Amer) > 60 > 60 Est GFR (Non-Af Amer) > 60 > 60 POC Glucose (mg/dL) (65-110) mg/dL Random Glucose 157 H 156 H (65-105) mg/dL Calcium 9.2 9.2 (8.6-10.4) mg/dl Phosphorus 3.7 (2.5-4.5) mg/dL Magnesium 2.0 (1.6-2.3) mg/dL Total Bilirubin 0.6 0.4 (0.2-1.3) mg/dL AST 24 23 (14-36) U/L ALT 36 33 (9-52) U/L Alkaline Phosphatase 49 40 (38-126) U/L Total Protein 6.9 7.2 (6.3-8.3) g/dL Albumin 4.1 4.6 (3.5-5.0) g/dL Globulin 2.8 2.7 (2.2-3.9) gm/dL Albumin/Globulin Ratio 1.5 1.7 (1.0-2.1) Lipase 868 H (23-300) U/L 02/25/18 02/25/18 02/25/18 Range/Units 00:58 00:58 00:41 WBC 14.7 H (4.8-10.8) K/uL RBC 3.43 L (3.80-5.20) Mil/uL Hgb 10.2 L (11.0-16.0) g/dL Hct 30.9 L (34.0-47.0) % MCV 90.2 D (81.0-99.0) fL MCH 29.7 (27.0-31.0) pg MCHC 32.9 L (33.0-37.0) g/dL RDW 18.8 H (11.5-14.5) % Plt Count 348 (130-400) K/uL MPV 6.7 L (7.2-11.7) fL Neut % (Auto) 74.3 (50.0-75.0) % Lymph % (Auto) 13.0 L (20.0-40.0) % [place] % (Auto) 9.1 (0.0-10.0) % Eos % (Auto) 2.9 (0.0-4.0) % Baso % (Auto) 0.7 (0.0-2.0) % Neut # (Auto) 10.9 H (1.8-7.0) K/uL Lymph # (Auto) 1.9 (1.0-4.3) K/uL [place] # (Auto) 1.3 H (0.0-0.8) K/uL Eos # (Auto) 0.4 (0.0-0.7) K/uL Baso # (Auto) 0.1 (0.0-0.2) K/uL Neutrophils % (Manual) (50-75) % Lymphocytes % (Manual) (20-40) % Monocytes % (Manual) Platelet Estimate (NORMAL) Hypochromasia (manual) Poikilocytosis (manual Anisocytosis (manual) PT 10.6 (9.7-12.2) SECONDS INR 1.0 APTT 34 (21-34) SECONDS Sodium (132-148) mmol/L Potassium (3.6-5.2) mmol/L Chloride (98-107) mmol/L Carbon Dioxide (22-30) mmol/L Anion Gap (10-20) BUN (7-17) mg/dL Creatinine (0.7-1.2) mg/dL Est GFR ( Amer) Est GFR (Non-Af Amer) POC Glucose (mg/dL) 141 H (65-110) mg/dL Random Glucose (65-105) mg/dL Calcium (8.6-10.4) mg/dl Phosphorus (2.5-4.5) mg/dL Magnesium (1.6-2.3) mg/dL Total Bilirubin (0.2-1.3) mg/dL AST (14-36) U/L ALT (9-52) U/L Alkaline Phosphatase (38-126) U/L Total Protein (6.3-8.3) g/dL Albumin (3.5-5.0) g/dL Globulin (2.2-3.9) gm/dL Albumin/Globulin Ratio (1.0-2.1) Lipase (23-300) U/L Laboratory Results - last 24 hr 02/25/18 02/25/18 02/25/18 00:41 00:58 00:58 WBC 14.7 H RBC 3.43 L Hgb 10.2 L Hct 30.9 L MCV 90.2 D MCH 29.7 MCHC 32.9 L RDW 18.8 H Plt Count 348 MPV 6.7 L Neut % (Auto) 74.3 Lymph % (Auto) 13.0 L [place] % (Auto) 9.1 Eos % (Auto) 2.9 Baso % (Auto) 0.7 Neut # (Auto) 10.9 H Lymph # (Auto) 1.9 [place] # (Auto) 1.3 H Eos # (Auto) 0.4 Baso # (Auto) 0.1 Neutrophils % (Manual) Lymphocytes % (Manual) Monocytes % (Manual) Platelet Estimate Hypochromasia (manual) Poikilocytosis (manual Anisocytosis (manual) PT 10.6 INR 1.0 APTT 34 Sodium Potassium Chloride Carbon Dioxide Anion Gap BUN Creatinine Est GFR ( Amer) Est GFR (Non-Af Amer) POC Glucose (mg/dL) 141 H Random Glucose Calcium Phosphorus Magnesium Total Bilirubin AST ALT Alkaline Phosphatase Total Protein Albumin Globulin Albumin/Globulin Ratio Lipase 02/25/18 02/25/18 02/25/18 00:58 10:24 10:24 WBC 9.5 RBC 3.24 L Hgb 9.9 L Hct 29.2 L MCV 90.1 MCH 30.5 MCHC 33.9 RDW 18.6 H Plt Count 331 MPV 7.0 L Neut % (Auto) 91.8 H Lymph % (Auto) 7.4 L [place] % (Auto) 0.7 Eos % (Auto) 0.0 Baso % (Auto) 0.1 Neut # (Auto) 8.8 H Lymph # (Auto) 0.7 L [place] # (Auto) 0.1 Eos # (Auto) 0.0 Baso # (Auto) 0.0 Neutrophils % (Manual) 95 H Lymphocytes % (Manual) 5 L Monocytes % (Manual) TEST NOT PERFORMED Platelet Estimate Normal Hypochromasia (manual) Slight Poikilocytosis (manual Slight Anisocytosis (manual) Slight PT INR APTT Sodium 141 139 Potassium 3.3 L 3.8 Chloride 103 106 Carbon Dioxide 22 24 Anion Gap 19 13 BUN 18 H 13 Creatinine 0.7 0.5 L Est GFR ( Amer) > 60 > 60 Est GFR (Non-Af Amer) > 60 > 60 POC Glucose (mg/dL) Random Glucose 156 H 157 H Calcium 9.2 9.2 Phosphorus 3.7 Magnesium 2.0 Total Bilirubin 0.4 0.6 AST 23 24 ALT 33 36 Alkaline Phosphatase 40 49 Total Protein 7.2 6.9 Albumin 4.6 4.1 Globulin 2.7 2.8 Albumin/Globulin Ratio 1.7 1.5 Lipase 868 H EKG/Cardiology Studies: Cardiology / EKG Studies 02/25/18 00:47 EKG [ELECTROCARDIOGRAM] Stat Comment: Mode Of Transportation: STRETCHER Reason For Exam: ABD PAIN Critical Care Progress Note - Nutrition Nutrition: Nutrition Category Date Time Status Pureed [Dysphagia/Modified Consistency Diet] [DIET] Diets 02/25/18 Lunch Active Assessment/Plan - Assessment and Plan (Free Text) Plan: Patient seen and examined at bedside. Patient has h/o Myasthenia Gravis. Patient being seen by neurology. Patient being monitored for any exacerbating factors. -Continue to monitor patient in ICU.
[2018-02-25] MEDS: Enoxaparin 40 mg Syringe SC SCH (09:56)
[2018-02-25] MEDS ORDERED: Potassium Chloride 20 mEq ER Tab PO SCH (10:00)
[2018-02-25 10:39] LABS: BASO % 0.1 % (0.0-2.0); HEMOGLOBIN 9.9 g/dL (11.0-16.0); LYMPH # 0.7 K/uL (1.0-4.3); LYMPH % 7.4 % (20.0-40.0); MEAN CELL VOLUME 90.1 fL (81.0-99.0); MEAN CORPUSCULAR HEMOGLOBIN 30.5 pg (27.0-31.0); MEAN CORPUSCULAR HGB CONC 33.9 g/dL (33.0-37.0); MONO # 0.1 K/uL (0.0-0.8); MONO % 0.7 % (0.0-10.0); NEUT # 8.8 K/uL (1.8-7.0); NEUT % 91.8 % (50.0-75.0); PLATELET COUNT 331 K/uL (130-400); RBC 3.24 Mil/uL (3.80-5.20); RED CELL DISTRIBUTION WIDTH 18.6 % (11.5-14.5); WHITE BLOOD COUNT 9.5 K/uL (4.8-10.8)
[2018-02-25 10:57] LABS: ALB/GLOB RATIO 1.5 (1.0-2.1); ALBUMIN 4.1 g/dL (3.5-5.0); ALT/SGPT 36 U/L (9-52); AST/SGOT 24 U/L (14-36); BLOOD UREA NITROGEN 13 mg/dL (7-17); CALCIUM 9.2 mg/dl (8.6-10.4); GFR AFRICAN-AMERICAN > 60; GFR NON-AFRICAN AMERICAN > 60
[2018-02-25] MEDS: (Novolog) Insulin Aspart, Recombinant 100 u/ml 10 ml vial SC SCH ×3 (11:30→21:31)
[2018-02-25 11:43] LABS: ANISOCYTOSIS SLIGHT; HYPOCHROMIC SLIGHT; LYMPHOCYTE 5 % (20-40); NEUTROPHIL 95 % (50-75); PLATELET ESTIMATE NORMAL (NORMAL); POIKILOCYTOSIS SLIGHT; TOTAL CELLS COUNTED 100
--- NOTE | 2018-02-25 12:41 | US ---
Date of service: 02/25/2018 HISTORY: pancreatitis COMPARISON: None. TECHNIQUE: Sonographic evaluation of the abdomen. FINDINGS: LIVER: Measures 17.1 cm. Increased echogenicity of the liver parenchyma. No mass. No intrahepatic bile duct dilatation. GALLBLADDER: Unremarkable. No gallstones. COMMON BILE DUCT: Measures 5.4 mm. No stones. No dilatation. PANCREAS: The pancreas is slightly heterogeneous. RIGHT KIDNEY: Measures 10.2 x 5 x 4.8 cm. Normal echogenicity. No calculus, mass, or hydronephrosis. LEFT KIDNEY: Measures 10.8 x 4.5 x 4.8cm. Normal echogenicity. No calculus, mass, or hydronephrosis. SPLEEN: Normal in size and contour. No mass. AORTA: No aneurysmal dilatation. IVC: Unremarkable. OTHER FINDINGS: None. IMPRESSION: Echogenic liver likely represent hepatic steatosis. No evidence of cholelithiasis or cholecystitis. No evidence of hydronephrosis.
[2018-02-25] MEDS ORDERED: Albuterol 0.083% Inhal Sol (2.5 mg/3 mL) UD INH PRN ×2 (14:00→21:54)
[2018-02-25] MEDS ORDERED: PYRIDOSTIGMINE 180 MG PO STA (18:11)
[2018-02-25] MEDS ORDERED: Immune Globulin 50 MG/ML (OCTAGAM 5%) 10 GM/200 ML IV ONE ×2 (18:13)
[2018-02-25] MEDS ORDERED: Naloxone 0.4 mg/ml Inj (Adult) IVP ONE (18:16)
[2018-02-25] MEDS ORDERED: DiphenhydrAMINE 50 mg/ml Inj IVP ONE (19:36)
[2018-02-25] MEDS ORDERED: IMMUNE GLOBULIN 50 MG/ML IV ONE (20:00)
[2018-02-25] MEDS: Albuterol 0.083% Inhal Sol (2.5 mg/3 mL) UD INH SCH (20:00)
[2018-02-25] MEDS ORDERED: Albuterol 0.083% Inhal Sol (2.5 mg/3 mL) UD INH SCH (20:00)
--- NOTE | 2018-02-25 21:52 | CP.PCM.HP ---
History of Present Illness - History of Present Illness History of Present Illness: Chief complaint: Patient came to the emergency room with the sudden onset of vomiting, abdominal pain, nausea and unable to breathe. History present illness: 48-year-old female with history of asthma, recently underwent a thymectomy 4months ago, and also diagnosed with myasthenia gravis, And had a frequent hospitalization because of the myasthenia gravis exacerbation. Patient was recently at [facility], received a Port-A-Cath on the right side chest, and she received chemotherapy 3 weeks ago. Patient received a chemotherapy for possible malignant thymoma. Postchemotherapy patient was initially doing well. But later she started having symptoms of numbness in the perioral region, tingling, and loss of appetite and loss of taste. She was also having some headache. During that time she was hospitalized at [facility] with a sudden onset of respiratory distress, and hospitalized. At the time patient received plasmapheresis x5. Also received intravenous immunoglobulin 5 doses so far. Patient came to my office the day before the admission. At that time she was okay. She was complaining of some shortness of breath. She was not feeling well at the time. She did not have any nausea vomiting at the time. But she was having episodes of diarrhea because of the medication. But that night the patient started having increasing symptoms of abdominal pain , nausea, and episode of vomiting. And after the vomiting she was not able to breathe, and she was taken to the emergency room. Past medical history: Bronchial asthma, thymoma recent thymectomy, recently diagnosed myasthenia gravis. Surgical history includes thymectomy 6 weeks ago and the thoracentesis.Port-A- Cath placement. Chemotherapy Allergy patient has a multiple allergies as noted in the chart. Personal history: Nonsmoker nonalcoholic. Most of the history taken from the chart. Family history noncontributory. Review of systems: Patient is currently intubated, sedated, nonverbal. Chest bilateral good air entry, no wheezing noted regular heart sound nontender abdomen, no pedal edema On examination: HEENT PERRLA, neck supple No thyromegaly was noted and no cervical adenopathy noted Chest bilateral good air entry, no wheezing or rales noted CVS regular heart sound, no murmur Abdomen soft and no organomegaly Extremities no pedal edema, no leg swelling, pedal pulses are good. Sedated. In the emergency room patient was placed on BiPAP. And she was having some difficulty in breathing even with the BiPAP. But slowly she did regain the strength back. Her nausea and vomiting stopped. Today she is feeling slightly better. Assessment/recommendation: 47-year-old female with history of bronchial asthma, thymectomy recently done, admitted now with acute respiratory insufficiency. Most likely related to myasthenia gravis exacerbation. Patient also has a elevation of the lipase level, and associate with vomiting, underlying pancreatitis cannot be ruled out. We will get the sonogram of the abdomen. We will continue her current medications. Neurological evaluation and follow-up. Spoke to the neurologist. Patient will need immunoglobulins, , and corticosteroid, Mestinon. Patient will need DVT prophylaxis, GI prophylaxis. Supportive ventilation. Will follow the patient. Close ICU monitoring. Patient will need a possible empirical antibiotic. Present on Admission - Present on Admission Any Indicators Present on Admission: No History of DVT/PE: No History of Uncontrolled Diabetes: No Urinary Catheter: No Decubitus Ulcer Present: No Past Patient History - Infectious Disease Hx of Infectious Diseases: None - Tetanus Immunizations Tetanus Immunization: Unknown - Past Medical History & Family History Past Medical History?: Yes - Past Social History Smoking Status: Never Smoked - CARDIAC Hx Pacemaker: No - PULMONARY Hx Asthma: Yes - NEUROLOGICAL Hx Neurological Disorder: Yes Other/Comment: hx temporary paralysis. Myasthenia gravis - HEENT Hx HEENT Problems: Yes (blurred vision) - RENAL Hx Chronic Kidney Disease: No - ENDOCRINE/METABOLIC Hx Endocrine Disorders: No - HEMATOLOGICAL/ONCOLOGICAL Hx Blood Disorders: Yes Other/Comment: becomes fatigues after ivig infusions, 2x p/wk x 3 wks - INTEGUMENTARY Hx Dermatological Problems: Yes Other/Comment: mid chest scar, rcw vascular access dressing dry and intact - MUSCULOSKELETAL/RHEUMATOLOGICAL Hx Falls: Yes (recent fall) - GASTROINTESTINAL Hx Gastrointestinal Disorders: Yes HX Swallowing Problems: Yes (swallowing and eating) - GENITOURINARY/GYNECOLOGICAL Hx Genitourinary Disorders: No - PSYCHIATRIC Hx Anxiety: Yes Hx Depression: Yes Hx Substance Use: No - SURGICAL HISTORY Hx Appendectomy: Yes - ANESTHESIA Hx Anesthesia: Yes Hx Anesthesia Reactions: Yes (TROUBLE WAKING.MAY DEVELOP PROBLEMS R/T MYASTHENIA ) Hx Malignant Hyperthermia: No Meds Allergies/Adverse Reactions: Allergies Allergy/AdvReac Type Severity Reaction Status Date / Time cephalexin [From Keflex] Allergy Severe RASH Verified 02/25/18 00:30 codeine Allergy Severe RASH/SOB Verified 02/25/18 00:30 Iodine and Iodide Containing Allergy Severe ANAPHYLAXIS Verified 02/25/18 00:30 Produc latex Allergy Severe ANAPHYLAXIS Verified 02/25/18 00:30 oxycodone [From Percocet] Allergy Severe ANAPHYLAXIS Verified 02/25/18 00:30 peanut Allergy Severe ANAPHYLAXIS Verified 02/25/18 00:30 Penicillins Allergy Severe RASH/SOB Verified 02/25/18 00:30 shellfish derived Allergy ANAPHYLAXIS Verified 02/25/18 00:30 Results - Vital Signs Recent Vital Signs: Last Vital Signs Temp 98.0 F 02/25/18 16:00 Pulse 65 02/25/18 19:35 Resp 17 02/25/18 14:00 BP 113/66 02/25/18 13:01 Pulse Ox 100 02/25/18 14:00 - Labs Result Diagrams: 02/26/18 06:35 02/26/18 06:29 Labs: Laboratory Results - last 24 hr 02/25/18 02/25/18 02/25/18 00:41 00:58 00:58 WBC 14.7 H RBC 3.43 L Hgb 10.2 L Hct 30.9 L MCV 90.2 D MCH 29.7 MCHC 32.9 L RDW 18.8 H Plt Count 348 MPV 6.7 L Neut % (Auto) 74.3 Lymph % (Auto) 13.0 L [place] % (Auto) 9.1 Eos % (Auto) 2.9 Baso % (Auto) 0.7 Neut # (Auto) 10.9 H Lymph # (Auto) 1.9 [place] # (Auto) 1.3 H Eos # (Auto) 0.4 Baso # (Auto) 0.1 Neutrophils % (Manual) Lymphocytes % (Manual) Monocytes % (Manual) Platelet Estimate Hypochromasia (manual) Poikilocytosis (manual Anisocytosis (manual) PT 10.6 INR 1.0 APTT 34 Sodium Potassium Chloride Carbon Dioxide Anion Gap BUN Creatinine Est GFR ( Amer) Est GFR (Non-Af Amer) POC Glucose (mg/dL) 141 H Random Glucose Calcium Phosphorus Magnesium Total Bilirubin AST ALT Alkaline Phosphatase Total Protein Albumin Globulin Albumin/Globulin Ratio Lipase 02/25/18 02/25/18 02/25/18 00:58 10:24 10:24 WBC 9.5 RBC 3.24 L Hgb 9.9 L Hct 29.2 L MCV 90.1 MCH 30.5 MCHC 33.9 RDW 18.6 H Plt Count 331 MPV 7.0 L Neut % (Auto) 91.8 H Lymph % (Auto) 7.4 L [place] % (Auto) 0.7 Eos % (Auto) 0.0 Baso % (Auto) 0.1 Neut # (Auto) 8.8 H Lymph # (Auto) 0.7 L [place] # (Auto) 0.1 Eos # (Auto) 0.0 Baso # (Auto) 0.0 Neutrophils % (Manual) 95 H Lymphocytes % (Manual) 5 L Monocytes % (Manual) TEST NOT PERFORMED Platelet Estimate Normal Hypochromasia (manual) Slight Poikilocytosis (manual Slight Anisocytosis (manual) Slight PT INR APTT Sodium 141 139 Potassium 3.3 L 3.8 Chloride 103 106 Carbon Dioxide 22 24 Anion Gap 19 13 BUN 18 H 13 Creatinine 0.7 0.5 L Est GFR ( Amer) > 60 > 60 Est GFR (Non-Af Amer) > 60 > 60 POC Glucose (mg/dL) Random Glucose 156 H 157 H Calcium 9.2 9.2 Phosphorus 3.7 Magnesium 2.0 Total Bilirubin 0.4 0.6 AST 23 24 ALT 33 36 Alkaline Phosphatase 40 49 Total Protein 7.2 6.9 Albumin 4.6 4.1 Globulin 2.7 2.8 Albumin/Globulin Ratio 1.7 1.5 Lipase 868 H
[2018-02-25] MEDS: PYRIDOSTIGMINE 180 MG PO SCH (22:28)
[2018-02-26 06:43] LABS: BASO % 0.1 % (0.0-2.0); HEMOGLOBIN 8.7 g/dL (11.0-16.0); LYMPH # 0.6 K/uL (1.0-4.3); LYMPH % 4.6 % (20.0-40.0); MEAN CELL VOLUME 90.2 fL (81.0-99.0); MEAN CORPUSCULAR HEMOGLOBIN 30.6 pg (27.0-31.0); MEAN CORPUSCULAR HGB CONC 33.9 g/dL (33.0-37.0); MEAN PLATELET VOLUME 7.2 fL (7.2-11.7); MONO # 0.9 K/uL (0.0-0.8); MONO % 6.8 % (0.0-10.0); NEUT # 11.7 K/uL (1.8-7.0); NEUT % 88.5 % (50.0-75.0); PLATELET COUNT 326 K/uL (130-400); RBC 2.84 Mil/uL (3.80-5.20); WHITE BLOOD COUNT 13.2 K/uL (4.8-10.8)
[2018-02-26 07:10] LABS: ALB/GLOB RATIO 1.4 (1.0-2.1); ALBUMIN 3.9 g/dL (3.5-5.0); ALT/SGPT 34 U/L (9-52); AST/SGOT 19 U/L (14-36); BLOOD UREA NITROGEN 11 mg/dL (7-17); CALCIUM 9.1 mg/dl (8.6-10.4); GFR AFRICAN-AMERICAN > 60; GFR NON-AFRICAN AMERICAN > 60; LIPASE 201 U/L (23-300)
[2018-02-26] MEDS: (Novolog) Insulin Aspart, Recombinant 100 u/ml 10 ml vial SC SCH ×4 (07:30→22:39)
[2018-02-26] MEDS: Sodium Chloride 0.9% 1,000 ML IV SCH ×2 (09:00→18:16)
[2018-02-26 09:23] LABS: LYMPHOCYTE 8 % (20-40); MONOCYTE 7 % (0-10); NEUTROPHIL 85 % (50-75); PLATELET ESTIMATE NORMAL (NORMAL); TOTAL CELLS COUNTED 100
[2018-02-26 09:24] LABS: ANISOCYTOSIS SLIGHT; HYPOCHROMIC SLIGHT; POLYCHROMIC SLIGHT; TOXIC GRANULATION PRESENT
[2018-02-26] MEDS: Enoxaparin 40 mg Syringe SC SCH (09:42)
--- NOTE | 2018-02-26 13:43 | CP.PCM.PN ---
Subjective - Date & Time of Evaluation Date of Evaluation: 02/26/18 Time of Evaluation: 13:37 - Subjective Subjective: This morning patient was more comfortable. She was able to breathe on her warm. She is off BiPAP now. No chest pain. Able to cough better. Negative inspiratory pressure is more than -40 Clinical examination is unremarkable. Pedal edema negative. Currently receiving immunoglobulin as per neurologist. She is also receiving Mestinon. We will continue to monitor the patient. Possible myasthenia gravis exacerbation, vomiting. Sonogram of the abdomen negative. Less likely pancreatitis. Continue to monitor. Patient is scheduled to have a PET scan on Wednesday, possible discharge plan before that Objective - Vital Signs/Intake and Output Vital Signs (last 24 hours): Temp Pulse Resp BP Pulse Ox 97.8 F 76 22 119/75 100 02/26/18 04:00 02/26/18 04:01 02/26/18 04:01 02/26/18 04:01 02/26/18 04:01 Intake and Output: 02/26/18 02/26/18 06:59 18:59 Intake Total 1100 100 Balance 1100 100 - Medications Medications: Current Medications Albuterol Sulfate (Albuterol 0.083% Inhal [place] (2.5 Mg/3 Ml) Ud) 2.5 mg INH RQ8 PRN PRN Reason: Wheezing Enoxaparin Sodium (Lovenox) 40 mg SC DAILY [facility] Last Admin: 02/26/18 09:42 Dose: 40 mg Sodium Chloride (Sodium Chloride 0.9%) 1,000 mls @ 100 mls/hr IV .Q10H [facility] Last Admin: 02/25/18 22:00 Dose: Not Given Insulin Aspart (Novolog) 0 unit SC ACHS [facility] PRN Reason: Protocol Last Admin: 02/26/18 13:09 Dose: 1 u Methylprednisolone (Solu-Medrol) 60 mg IV Q8 [facility] Last Admin: 02/26/18 13:08 Dose: 60 mg Ondansetron HCl (Zofran Inj) 4 mg IVP Q4 PRN PRN Reason: Nausea/Vomiting Pantoprazole Sodium (Protonix Inj) 40 mg IVP DAILY [facility] Last Admin: 02/26/18 09:44 Dose: 40 mg Pyridostigmine [place] (Mestinon Tab) 60 mg PO 0500,1100,1700 [facility] Last Admin: 02/26/18 11:00 Dose: 60 mg Pyridostigmine [place] (Mestinon Timespan Tab) 180 mg PO Q24H [facility] Last Admin: 02/25/18 22:28 Dose: 180 mg - Labs Labs: 02/26/18 06:35 02/26/18 06:29 PT 10.6 SECONDS (9.7-12.2) 02/25/18 00:58 INR 1.0 02/25/18 00:58 APTT 34 SECONDS (21-34) 02/25/18 00:58
--- NOTE | 2018-02-26 14:02 | CP.CCUPN ---
<Leobardo Perez - Last Filed: 02/26/18 14:38> CCU Subjective - Physician Review Subjective (Free Text): 02/26/18 13:58 Patient seen and examined at bedside in the ICU. No acute complaints at time of exam. Overnight, patient appeared to experience a worsening of her myesthenia crisis, became weak, barely able to move extremities, and unable to swallow her pyridostigmine. Was started on IV Dexamethasone, IVIG, and Bipap ( possible need for intubation was explained to patient, but she refused intubation at that time). Began to show clinical improvement overnight, and today, is notably better. Able to follow appropriate commands, no visible respiratory distress. Patient reports some residual weakness/malaise related to the exacerbation, but considerably improved from yesterday. Receiving IVIG treatment at time of exam. CCU Objective - Vital Signs / Intake & Output Intake and Output (Last 8hrs): Intake & Output 02/25/18 02/26/18 02/26/18 22:59 06:59 14:59 Intake Total 700 800 100 Balance 700 800 100 Intake: Intake, IV Amount 700 800 100 rt chest port a cath 700 800 100 - Physical Exam Head: Positive for: Atraumatic, Normocephalic. Negative for: Abrasion, Laceration Pupils: Negative for: Pinpoint Extroacular Muscles: Positive for: EOMI. Negative for: Gaze Palsy Conjunctiva: Positive for: Normal. Negative for: Injected, Icteric Mouth: Positive for: Moist Mucous Membranes. Negative for: Dry, Drooling Pharnyx: Positive for: Normal. Negative for: ERYTHEMA, EXUDATE Nose (External): Positive for: Atraumatic. Negative for: Abrasion, Contusion, Laceration Nose (Internal): Positive for: Normal Inspection, No Active Bleeding. Negative for: Epistaxis Neck: Positive for: Normal Range of Motion, Trachea Midline. Negative for: Meningeal Signs, MIDLINE TENDERNESS, Paraspinal Tenderness, JVD, Lymphadenopathy , Bruit Respiratory/Chest: Positive for: Clear to Auscultation, Good Air Exchange, Other (healed midline surgical scar along chest without erythema/edema/ fluctuance/tenderness). Negative for: Respiratory Distress, Accessory Muscle Use, Wheezes, Decreased Breath Sounds, Rales, Retracting, Rhonchi, Tachypneic Cardiovascular: Positive for: Regular Rate and Rhythm, Normal S1, S2, Peripheal Pulses Present. Negative for: Murmurs, Irregular Rhythm, Tachycardic, Bradycardic Abdomen: Positive for: Normal Bowel Sounds. Negative for: Tenderness, Distention, Guarding, Feeding Tubes Upper Extremity: Positive for: Normal Inspection, NORMAL PULSES. Negative for: Cyanosis, Edema, Tenderness, Swelling, Erythema Lower Extremity: Positive for: Normal Inspection, NORMAL PULSES, Normal ROM, Neurovascularly Intact (reports intermittent sensation of numbness/pins and needles sensation, but not present at time of exam). Negative for: Edema, CALF TENDERNESS, Cyanosis Neurological: Positive for: GCS=15, Speech Normal, Motor Func Grossly Intact, Normal Sensory Function Skin: Positive for: Warm, Dry, Rashes, Normal Color Psychiatric: Positive for: Alert, Oriented x 3, Normal Insight, Normal Concentration - Medications Active Medications: Active Medications Generic Name Dose Route Start Last Admin Trade Name Freq PRN Reason Stop Dose Admin Albuterol Sulfate 2.5 mg 02/25/18 21:54 Albuterol 0.083% Inhal [place] (2.5 Mg/3 Ml) Ud INH RQ8 PRN Wheezing Enoxaparin Sodium 40 mg 02/25/18 10:00 02/26/18 09:42 Lovenox SC 40 mg DAILY [facility] Administration Sodium Chloride 1,000 mls @ 100 mls/hr 02/25/18 02:15 02/25/18 22:00 Sodium Chloride 0.9% IV Not Given .Q10H [facility] Insulin Aspart 0 unit 02/25/18 11:30 02/26/18 13:09 Novolog SC 1 u ACHS [facility] Administration Protocol Methylprednisolone 60 mg 02/25/18 06:00 02/26/18 13:08 Solu-Medrol IV 60 mg Q8 [facility] Administration Ondansetron HCl 4 mg 02/25/18 07:52 Zofran Inj IVP Q4 PRN Nausea/Vomiting Pantoprazole Sodium 40 mg 02/25/18 10:00 02/26/18 09:44 Protonix Inj IVP 40 mg DAILY [facility] Administration Pyridostigmine [place] 60 mg 02/26/18 05:00 02/26/18 11:00 Mestinon Tab PO 60 mg 0500,1100,1700 [facility] Administration Pyridostigmine [place] 180 mg 02/25/18 23:00 02/25/18 22:28 Mestinon Timespan Tab PO 180 mg Q24H [facility] Administration - Patient Studies Lab Studies: Microbiology Studies 02/25/18 01:00 Blood Culture - Preliminary Blood-Thru Central Line NO GROWTH AFTER 24 HOURS 02/25/18 00:30 Blood Culture - Preliminary Blood-Thru Central Line NO GROWTH AFTER 24 HOURS Lab Studies 02/26/18 02/26/18 Range/Units 06:35 06:29 WBC 13.2 H (4.8-10.8) K/uL RBC 2.84 L (3.80-5.20) Mil/uL Hgb 8.7 L (11.0-16.0) g/dL Hct 25.6 L (34.0-47.0) % MCV 90.2 (81.0-99.0) fL MCH 30.6 (27.0-31.0) pg MCHC 33.9 (33.0-37.0) g/dL RDW 18.0 H (11.5-14.5) % Plt Count 326 (130-400) K/uL MPV 7.2 (7.2-11.7) fL Neut % (Auto) 88.5 H (50.0-75.0) % Lymph % (Auto) 4.6 L (20.0-40.0) % [place] % (Auto) 6.8 (0.0-10.0) % Eos % (Auto) 0.0 (0.0-4.0) % Baso % (Auto) 0.1 (0.0-2.0) % Neut # (Auto) 11.7 H (1.8-7.0) K/uL Lymph # (Auto) 0.6 L (1.0-4.3) K/uL [place] # (Auto) 0.9 H (0.0-0.8) K/uL Eos # (Auto) 0.0 (0.0-0.7) K/uL Baso # (Auto) 0.0 (0.0-0.2) K/uL Neutrophils % (Manual) 85 H (50-75) % Lymphocytes % (Manual) 8 L (20-40) % Monocytes % (Manual) 7 (0-10) % Toxic Granulation Present Platelet Estimate Normal (NORMAL) Polychromasia Slight Hypochromasia (manual) Slight Anisocytosis (manual) Slight Sodium 139 (132-148) mmol/L Potassium 4.0 (3.6-5.2) mmol/L Chloride 106 (98-107) mmol/L Carbon Dioxide 25 (22-30) mmol/L Anion Gap 12 (10-20) BUN 11 (7-17) mg/dL Creatinine 0.6 L (0.7-1.2) mg/dL Est GFR ( Amer) > 60 Est GFR (Non-Af Amer) > 60 Random Glucose 171 H (65-105) mg/dL Calcium 9.1 (8.6-10.4) mg/dl Phosphorus 2.8 (2.5-4.5) mg/dL Magnesium 2.1 (1.6-2.3) mg/dL Total Bilirubin 0.4 (0.2-1.3) mg/dL AST 19 (14-36) U/L ALT 34 (9-52) U/L Alkaline Phosphatase 35 L D (38-126) U/L Total Protein 6.8 (6.3-8.3) g/dL Albumin 3.9 (3.5-5.0) g/dL Globulin 2.9 (2.2-3.9) gm/dL Albumin/Globulin Ratio 1.4 (1.0-2.1) Lipase 201 (23-300) U/L Laboratory Results - last 24 hr 02/26/18 02/26/18 06:29 06:35 WBC 13.2 H RBC 2.84 L Hgb 8.7 L Hct 25.6 L MCV 90.2 MCH 30.6 MCHC 33.9 RDW 18.0 H Plt Count 326 MPV 7.2 Neut % (Auto) 88.5 H Lymph % (Auto) 4.6 L [place] % (Auto) 6.8 Eos % (Auto) 0.0 Baso % (Auto) 0.1 Neut # (Auto) 11.7 H Lymph # (Auto) 0.6 L [place] # (Auto) 0.9 H Eos # (Auto) 0.0 Baso # (Auto) 0.0 Neutrophils % (Manual) 85 H Lymphocytes % (Manual) 8 L Monocytes % (Manual) 7 Toxic Granulation Present Platelet Estimate Normal Polychromasia Slight Hypochromasia (manual) Slight Anisocytosis (manual) Slight Sodium 139 Potassium 4.0 Chloride 106 Carbon Dioxide 25 Anion Gap 12 BUN 11 Creatinine 0.6 L Est GFR ( Amer) > 60 Est GFR (Non-Af Amer) > 60 Random Glucose 171 H Calcium 9.1 Phosphorus 2.8 Magnesium 2.1 Total Bilirubin 0.4 AST 19 ALT 34 Alkaline Phosphatase 35 L D Total Protein 6.8 Albumin 3.9 Globulin 2.9 Albumin/Globulin Ratio 1.4 Lipase 201 Fingerstick Blood Sugar Results: 163 Review of Systems - Review of Systems All systems: reviewed and no additional remarkable complaints except (as per subjective) Critical Care Progress Note - Nutrition Nutrition: Nutrition Category Date Time Status Regular Diet [DIET] Diets 02/26/18 Breakfast Active Assessment/Plan - Assessment and Plan (Free Text) Assessment: This is a 48 y/o with PMH of malignant thymoma s/p resection and on chemo, myasthenia gravis, and history of multiple admissions for myasthenia crisis and flare requiring IVIG who presented with worsening shortness of breath, nausea, vomiting, and abdominal pain. Patient was admitted to ICU for possible myasthenia flare, which progressed to point of requiring IV steroids, IVIG, and Bipap overnight, now improving today. Plan: Neurology: -awake and alert -no justen weakness appreciated on exam, moving extremities spontaneously and on command, seen repeated holding phone up in air watching videos -no justen neurologic deficit appreciated at this time, again able to swallow medications, tolerating soft diet well, maintain aspiration precautions -Neuro following, appreciate all recs; episode yesterday most likely myasthenia crisis, IVIG and IV steroids ordered as per Neuro recs, pending reassessment today Pulm: -Myasthenia gravis (MG) exacerbation, now improving; continue Mestinon, solumedrol, IVIG -seen breathing on room air without issue, satting well, no longer on Bipap, no intubation needed -CXR notable for chronic R katharine-diaphragm elevation (vs chronic pleural effusion ), but no appreciable infiltrates elsewhere, and lack of fever and mild leukocytosis (more likely 2/2 steroids) not suggestive of infectious etiology -Will continue with Ventolin q8 prn -Aspiration precautions, Head of bed above 35 degrees -Pulm following, appreciate all recs; more likely MG exacerbation +/- vomiting, unlikely pancreatitis, off Bipap, pending possible PET scan Wednesday Cardiac: -Hemodynamically stable -On NS 100cc/hr -Maintain MAP > 65; no indication for pressor support at this time GI: -advanced to soft diet, tolerating well -not pancreatitis as per Pulm, and lipase of 868 less than 3x upper limit of normal value, so also suggests not pancreatitis -continue IVF NS @ 100cc/hr -abd US obtained, notable for hepatic steatosis, no cholelithiasis/cholecystitis -zofran prn for nausea and vomiting -protonix for GI ppx Renal: -Cr, BUN, and electrolytes within normal limits -continue to monitor and replete electrolytes as needed ID: -remains Afebrile -mild intermittent leukocytosis more likely due to steroids than infectious etiology -blood cultures x2 negative at 24 hrs, UA not suggestive of infection -no indication for antibiotics at this time Heme: -Normocytic anemia without any signs of active bleeding -Hgb downtrending (10.2 -> 9.9 -> 8.7), likely some hemoconcentration prior to presentation due to repeated emesis, now diluted due to PO intake resumed and IVF, will continue to monitor -no indications for transfusion at this time -Lovenox for DVT ppx Endo: -hyperglycemia likely due to steroid -continue insulin sliding scale low dose, and fingersticks achs. Dispo: ICU, improving MG flare/crisis, satting well on room air, still receiving IVIG; pending results of workup ordered by Neuro, remains in ICU for close observation while receiving MG tx FEN: advanced to soft diet, NS 100cc/hr Access: Peripheral IVs Consults: Neuro, ICU, Pulm Ppx: Lovenox for DVT, Protonix for GI Reviewed and discussed with attending, Dr. Beltrán <Haroldo Beltrán - Last Filed: 02/26/18 16:38> CCU Objective - Vital Signs / Intake & Output Vital Signs (Last 4 hours): Vital Signs Pulse Resp BP Pulse Ox 02/26/18 14:00 76 25 H 136/69 95 02/26/18 13:01 78 18 121/86 98 Intake and Output (Last 8hrs): Intake & Output 02/26/18 02/26/18 02/26/18 06:59 14:59 22:59 Intake Total 800 1008 Output Total 300 Balance 800 708 Intake: Intake, IV Amount 800 528 rt chest port a cath 800 528 Oral 480 Output: Urine 300 Urine, Voided 300 Other: # Voids Urine, Voided 1 - Medications Active Medications: Active Medications Generic Name Dose Route Start Last Admin Trade Name Freq PRN Reason Stop Dose Admin Albuterol Sulfate 2.5 mg 02/25/18 21:54 02/26/18 15:32 Albuterol 0.083% Inhal [place] (2.5 Mg/3 Ml) Ud INH 2.5 mg RQ8 PRN Administration Wheezing Enoxaparin Sodium 40 mg 02/25/18 10:00 02/26/18 09:42 Lovenox SC 40 mg DAILY [facility] Administration Sodium Chloride 1,000 mls @ 100 mls/hr 02/25/18 02:15 02/25/18 22:00 Sodium Chloride 0.9% IV Not Given .Q10H [facility] Insulin Aspart 0 unit 02/25/18 11:30 02/26/18 16:36 Novolog SC Not Given ACHS [facility] Protocol Methylprednisolone 60 mg 02/25/18 06:00 02/26/18 13:08 Solu-Medrol IV 60 mg Q8 [facility] Administration Ondansetron HCl 4 mg 02/25/18 07:52 Zofran Inj IVP Q4 PRN Nausea/Vomiting Pantoprazole Sodium 40 mg 02/25/18 10:00 02/26/18 09:44 Protonix Inj IVP 40 mg DAILY [facility] Administration Pyridostigmine [place] 60 mg 02/26/18 05:00 02/26/18 11:00 Mestinon Tab PO 60 mg 0500,1100,1700 [facility] Administration Pyridostigmine [place] 180 mg 02/25/18 23:00 02/25/18 22:28 Mestinon Timespan Tab PO 180 mg Q24H [facility] Administration - Patient Studies Lab Studies: Microbiology Studies 02/25/18 06:14 MRSA Culture (Admit) - Final Nose MRSA NOT DETECTED 02/25/18 01:00 Blood Culture - Preliminary Blood-Thru Central Line NO GROWTH AFTER 24 HOURS 02/25/18 00:30 Blood Culture - Preliminary Blood-Thru Central Line NO GROWTH AFTER 24 HOURS Lab Studies 02/26/18 02/26/18 02/26/18 Range/Units 14:15 06:35 06:29 WBC 13.2 H (4.8-10.8) K/uL RBC 2.84 L (3.80-5.20) Mil/uL Hgb 8.7 L (11.0-16.0) g/dL Hct 25.6 L (34.0-47.0) % MCV 90.2 (81.0-99.0) fL MCH 30.6 (27.0-31.0) pg MCHC 33.9 (33.0-37.0) g/dL RDW 18.0 H (11.5-14.5) % Plt Count 326 (130-400) K/uL MPV 7.2 (7.2-11.7) fL Neut % (Auto) 88.5 H (50.0-75.0) % Lymph % (Auto) 4.6 L (20.0-40.0) % Coffey % (Auto) 6.8 (0.0-10.0) % Eos % (Auto) 0.0 (0.0-4.0) % Baso % (Auto) 0.1 (0.0-2.0) % Neut # (Auto) 11.7 H (1.8-7.0) K/uL Lymph # (Auto) 0.6 L (1.0-4.3) K/uL [place] # (Auto) 0.9 H (0.0-0.8) K/uL Eos # (Auto) 0.0 (0.0-0.7) K/uL Baso # (Auto) 0.0 (0.0-0.2) K/uL Neutrophils % (Manual) 85 H (50-75) % Lymphocytes % (Manual) 8 L (20-40) % Monocytes % (Manual) 7 (0-10) % Toxic Granulation Present Platelet Estimate Normal (NORMAL) Polychromasia Slight Hypochromasia (manual) Slight Anisocytosis (manual) Slight Sodium 139 (132-148) mmol/L Potassium 4.0 (3.6-5.2) mmol/L Chloride 106 (98-107) mmol/L Carbon Dioxide 25 (22-30) mmol/L Anion Gap 12 (10-20) BUN 11 (7-17) mg/dL Creatinine 0.6 L (0.7-1.2) mg/dL Est GFR ( Amer) > 60 Est GFR (Non-Af Amer) > 60 Random Glucose 171 H (65-105) mg/dL Calcium 9.1 (8.6-10.4) mg/dl Phosphorus 2.8 (2.5-4.5) mg/dL Magnesium 2.1 (1.6-2.3) mg/dL Total Bilirubin 0.4 (0.2-1.3) mg/dL AST 19 (14-36) U/L ALT 34 (9-52) U/L Alkaline Phosphatase 35 L D (38-126) U/L Total Protein 6.8 (6.3-8.3) g/dL Albumin 3.9 (3.5-5.0) g/dL Globulin 2.9 (2.2-3.9) gm/dL Albumin/Globulin Ratio 1.4 (1.0-2.1) Lipase 201 (23-300) U/L Urine Color Yellow (YELLOW) Urine Clarity Hazy (Clear) Urine pH 5.0 (5.0-8.0) Ur Specific [place] 1.010 (1.003-1.030) Urine Protein Negative (NEGATIVE) mg/dL Urine Glucose (UA) 3+ H (Normal) mg/dL Urine Ketones Negative (NEGATIVE) mg/dL Urine Blood Negative (NEGATIVE) Urine Nitrate Negative (NEGATIVE) Urine Bilirubin Negative (NEGATIVE) Urine Urobilinogen Normal (0.2-1.0) mg/dL Ur Leukocyte Esterase Neg (Negative) [place]/uL Urine WBC (Auto) 1 (0-5) /hpf Urine RBC (Auto) < 1 (0-3) /hpf Ur Squamous Epith Cells 15 H (0-5) /hpf Urine Bacteria Few H (<OCC) Laboratory Results - last 24 hr 02/26/18 02/26/18 02/26/18 06:29 06:35 14:15 WBC 13.2 H RBC 2.84 L Hgb 8.7 L Hct 25.6 L MCV 90.2 MCH 30.6 MCHC 33.9 RDW 18.0 H Plt Count 326 MPV 7.2 Neut % (Auto) 88.5 H Lymph % (Auto) 4.6 L [place] % (Auto) 6.8 Eos % (Auto) 0.0 Baso % (Auto) 0.1 Neut # (Auto) 11.7 H Lymph # (Auto) 0.6 L [place] # (Auto) 0.9 H Eos # (Auto) 0.0 Baso # (Auto) 0.0 Neutrophils % (Manual) 85 H Lymphocytes % (Manual) 8 L Monocytes % (Manual) 7 Toxic Granulation Present Platelet Estimate Normal Polychromasia Slight Hypochromasia (manual) Slight Anisocytosis (manual) Slight Sodium 139 Potassium 4.0 Chloride 106 Carbon Dioxide 25 Anion Gap 12 BUN 11 Creatinine 0.6 L Est GFR ( Amer) > 60 Est GFR (Non-Af Amer) > 60 Random Glucose 171 H Calcium 9.1 Phosphorus 2.8 Magnesium 2.1 Total Bilirubin 0.4 AST 19 ALT 34 Alkaline Phosphatase 35 L D Total Protein 6.8 Albumin 3.9 Globulin 2.9 Albumin/Globulin Ratio 1.4 Lipase 201 Urine Color Yellow Urine Clarity Hazy Urine pH 5.0 Ur Specific [place] 1.010 Urine Protein Negative Urine Glucose (UA) 3+ H Urine Ketones Negative Urine Blood Negative Urine Nitrate Negative Urine Bilirubin Negative Urine Urobilinogen Normal Ur Leukocyte Esterase Neg Urine WBC (Auto) 1 Urine RBC (Auto) < 1 Ur Squamous Epith Cells 15 H Urine Bacteria Few H Critical Care Progress Note - Nutrition Nutrition: Nutrition Category Date Time Status Regular Diet [DIET] Diets 02/26/18 Breakfast Active Attending/Attestation - Attestation I have personally seen and examined this patient.: Yes I have fully participated in the care of the patient.: Yes I have reviewed all pertinent clinical information: Yes Notes (Text): 02/26/18 16:37 I have seen and examined the patient. Medical records, lab studies, and imaging were reviewed by me and a management plan was formulated on multidisciplinary rounds with resident Dr. Perez. I agree with their documented assessment and plan. Patient's myaesthenic crisis is resolving, continue steroids, IVIG and mestinon. Critical Care Time 35 minutes. Multi-disciplinary rounds were performed with house staff, nursing, speech therapy, respiratory therapy, pharmacy and nutrition with integrated input from the primary team/attending and other consulting services. The documented time is cumulative and includes review of patient data/exams/labs/chart review and examination of the patient on rounds and throughout the day; time is exclusive of any procedures or teaching time.
[2018-02-26 14:32] LABS: SQUAMOUS EPITHIAL 15 /hpf (0-5); URINE BACTERIA FEW (<OCC); URINE BILIRUBIN NEGATIVE (NEGATIVE); URINE BLOOD NEGATIVE (NEGATIVE); URINE CLARITY Hazy (Clear); URINE COLOR Yellow (YELLOW); URINE GLUCOSE (UA) 3+ mg/dL (Normal); URINE LEUKOCYTE ESTERASE NEG Leu/uL (Negative); URINE PROTEIN NEGATIVE (NEGATIVE); URINE UROBILINOGEN NORMAL mg/dL (0.2-1.0)
[2018-02-26] MEDS: IMMUNE GLOBULIN 50 MG/ML IV SCH (23:37)
[2018-02-26] MEDS: PYRIDOSTIGMINE 180 MG PO SCH (23:37)
[2018-02-27] MEDS: Sodium Chloride 0.9% 1,000 ML IV SCH ×2 (04:23→14:54)
[2018-02-27 06:31] LABS: HEMOGLOBIN 8.3 g/dL (11.0-16.0); LYMPH # 0.6 K/uL (1.0-4.3); LYMPH % 3.4 % (20.0-40.0); MEAN CELL VOLUME 90.9 fL (81.0-99.0); MEAN PLATELET VOLUME 7.4 fL (7.2-11.7); MONO # 1.1 K/uL (0.0-0.8); MONO % 6.6 % (0.0-10.0); NEUT # 14.6 K/uL (1.8-7.0); PLATELET COUNT 294 K/uL (130-400); RBC 2.76 Mil/uL (3.80-5.20); RED CELL DISTRIBUTION WIDTH 18.6 % (11.5-14.5); WHITE BLOOD COUNT 16.2 K/uL (4.8-10.8)
[2018-02-27 06:50] LABS: ALB/GLOB RATIO 1.1 (1.0-2.1); ALBUMIN 3.6 g/dL (3.5-5.0); ALT/SGPT 49 U/L (9-52); AST/SGOT 31 U/L (14-36); BLOOD UREA NITROGEN 21 mg/dL (7-17); CALCIUM 8.6 mg/dl (8.6-10.4); GFR AFRICAN-AMERICAN > 60; GFR NON-AFRICAN AMERICAN > 60
[2018-02-27 08:27] LABS: BANDS 1 % (0-2); LYMPHOCYTE 4 % (20-40); MONOCYTE 8 % (0-10); NEUTROPHIL 87 % (50-75); PLATELET ESTIMATE NORMAL (NORMAL); TOTAL CELLS COUNTED 100
[2018-02-27 08:28] LABS: ANISOCYTOSIS SLIGHT; TOXIC GRANULATION PRESENT
[2018-02-27 08:29] LABS: HYPOCHROMIC SLIGHT; POLYCHROMIC SLIGHT
[2018-02-27] MEDS: (Novolog) Insulin Aspart, Recombinant 100 u/ml 10 ml vial SC SCH ×4 (08:30→22:00)
[2018-02-27] MEDS: Enoxaparin 40 mg Syringe SC SCH (09:09)
--- NOTE | 2018-02-27 14:48 | CP.CCUPN ---
CCU Subjective - Physician Review Events Since Last Encounter (Free Text): 02/27/18 14:47 patient feels much better today, and would like to go home, will discuss with PMD. CCU Objective - Vital Signs / Intake & Output Vital Signs (Last 4 hours): Vital Signs Temp Pulse Resp BP Pulse Ox 02/27/18 12:01 53 L 22 118/96 H 02/27/18 12:00 98.2 F 51 L 16 100 02/27/18 11:02 62 24 159/131 H Intake and Output (Last 8hrs): Intake & Output 02/26/18 02/27/18 02/27/18 22:59 06:59 14:59 Intake Total 1280 1568.8 Output Total 200 450 Balance 1080 1118.8 Weight 151 lb 8 oz Intake: Intake, IV Amount 800 1568.8 Right SC Port-a-Cath - 768.8 Distal Port rt chest port a cath 800 800 Oral 480 Output: Urine 200 450 Urine, Voided 200 450 Other: # Voids Urine, Voided 1 # Bowel Movements 1 - Physical Exam Head: Positive for: Atraumatic, Normocephalic. Negative for: Abrasion, Laceration Pupils: Negative for: Pinpoint Extroacular Muscles: Positive for: EOMI. Negative for: Gaze Palsy Conjunctiva: Positive for: Normal. Negative for: Injected, Icteric Mouth: Positive for: Moist Mucous Membranes. Negative for: Dry, Drooling Pharnyx: Positive for: Normal. Negative for: ERYTHEMA, EXUDATE Nose (External): Positive for: Atraumatic. Negative for: Abrasion, Contusion, Laceration Nose (Internal): Positive for: Normal Inspection, No Active Bleeding. Negative for: Epistaxis Neck: Positive for: Normal Range of Motion, Trachea Midline. Negative for: Meningeal Signs, MIDLINE TENDERNESS, Paraspinal Tenderness, JVD, Lymphadenopathy , Bruit Respiratory/Chest: Positive for: Clear to Auscultation, Good Air Exchange, Other (healed midline surgical scar along chest without erythema/edema/ fluctuance/tenderness). Negative for: Respiratory Distress, Accessory Muscle Use, Wheezes, Decreased Breath Sounds, Rales, Retracting, Rhonchi, Tachypneic Cardiovascular: Positive for: Regular Rate and Rhythm, Normal S1, S2, Peripheal Pulses Present. Negative for: Murmurs, Irregular Rhythm, Tachycardic, Bradycardic Abdomen: Positive for: Normal Bowel Sounds. Negative for: Tenderness, Distention, Guarding, Feeding Tubes Upper Extremity: Positive for: Normal Inspection, NORMAL PULSES. Negative for: Cyanosis, Edema, Tenderness, Swelling, Erythema Lower Extremity: Positive for: Normal Inspection, NORMAL PULSES, Normal ROM, Neurovascularly Intact (reports intermittent sensation of numbness/pins and needles sensation, but not present at time of exam). Negative for: Edema, CALF TENDERNESS, Cyanosis Neurological: Positive for: GCS=15, Speech Normal, Motor Func Grossly Intact, Normal Sensory Function Skin: Positive for: Warm, Dry, Rashes, Normal Color Psychiatric: Positive for: Alert, Oriented x 3, Normal Insight, Normal Concentration - Medications Active Medications: Active Medications Generic Name Dose Route Start Last Admin Trade Name Freq PRN Reason Stop Dose Admin Albuterol Sulfate 2.5 mg 02/25/18 21:54 02/26/18 15:32 Albuterol 0.083% Inhal Myrtle (2.5 Mg/3 Ml) Ud INH 2.5 mg RQ8 PRN Administration Wheezing Enoxaparin Sodium 40 mg 02/25/18 10:00 02/27/18 09:09 Lovenox SC 40 mg DAILY DIONICIO Administration Sodium Chloride 1,000 mls @ 100 mls/hr 02/25/18 02:15 02/27/18 04:23 Sodium Chloride 0.9% IV 100 mls/hr .Q10H DIONICIO Administration Immune Globulin 520 mls @ 0 mls/hr 02/26/18 21:00 02/26/18 23:37 Octagam 5% IV 03/01/18 21:01 38.4 mls/hr Q24H DIONICIO Administration UD Insulin Aspart 0 unit 02/25/18 11:30 02/27/18 12:00 Novolog SC Not Given ACHS DIONICIO Protocol Methylprednisolone 60 mg 02/25/18 06:00 02/27/18 05:28 Solu-Medrol IV 60 mg Q8 DIONICIO Administration Ondansetron HCl 4 mg 02/25/18 07:52 Zofran Inj IVP Q4 PRN Nausea/Vomiting Pantoprazole Sodium 40 mg 02/25/18 10:00 02/27/18 09:09 Protonix Inj IVP 40 mg DAILY DIONICIO Administration Pyridostigmine Margaret 60 mg 02/26/18 05:00 02/27/18 10:12 Mestinon Tab PO 60 mg 0500,1100,1700 DIONICIO Administration Pyridostigmine Margaret 180 mg 02/25/18 23:00 02/26/18 23:37 Mestinon Timespan Tab PO 180 mg Q24H DIONICIO Administration - Patient Studies Lab Studies: Microbiology Studies 02/25/18 01:00 Blood Culture - Preliminary Blood-Thru Central Line NO GROWTH AFTER 48 HOURS 02/25/18 00:30 Blood Culture - Preliminary Blood-Thru Central Line NO GROWTH AFTER 48 HOURS 02/25/18 06:14 MRSA Culture (Admit) - Final Nose MRSA NOT DETECTED Lab Studies 02/27/18 02/27/18 Range/Units 06:22 06:22 WBC 16.2 H (4.8-10.8) K/uL RBC 2.76 L (3.80-5.20) Mil/uL Hgb 8.3 L (11.0-16.0) g/dL Hct 25.1 L (34.0-47.0) % MCV 90.9 (81.0-99.0) fL MCH 30.0 (27.0-31.0) pg MCHC 33.0 (33.0-37.0) g/dL RDW 18.6 H (11.5-14.5) % Plt Count 294 (130-400) K/uL MPV 7.4 (7.2-11.7) fL Neut % (Auto) 90.0 H (50.0-75.0) % Lymph % (Auto) 3.4 L (20.0-40.0) % Russell % (Auto) 6.6 (0.0-10.0) % Eos % (Auto) 0.0 (0.0-4.0) % Baso % (Auto) 0.0 (0.0-2.0) % Neut # (Auto) 14.6 H (1.8-7.0) K/uL Lymph # (Auto) 0.6 L (1.0-4.3) K/uL Russell # (Auto) 1.1 H (0.0-0.8) K/uL Eos # (Auto) 0.0 (0.0-0.7) K/uL Baso # (Auto) 0.0 (0.0-0.2) K/uL Neutrophils % (Manual) 87 H (50-75) % Band Neutrophils % 1 (0-2) % Lymphocytes % (Manual) 4 L (20-40) % Monocytes % (Manual) 8 (0-10) % Toxic Granulation Present Platelet Estimate Normal (NORMAL) Polychromasia Slight Hypochromasia (manual) Slight Anisocytosis (manual) Slight Sodium 139 (132-148) mmol/L Potassium 3.5 L (3.6-5.2) mmol/L Chloride 108 H (98-107) mmol/L Carbon Dioxide 24 (22-30) mmol/L Anion Gap 11 (10-20) BUN 21 H (7-17) mg/dL Creatinine 0.6 L (0.7-1.2) mg/dL Est GFR ( Amer) > 60 Est GFR (Non-Af Amer) > 60 Random Glucose 154 H (65-105) mg/dL Calcium 8.6 (8.6-10.4) mg/dl Phosphorus 2.6 (2.5-4.5) mg/dL Magnesium 1.9 (1.6-2.3) mg/dL Total Bilirubin 0.3 (0.2-1.3) mg/dL AST 31 (14-36) U/L ALT 49 (9-52) U/L Alkaline Phosphatase 37 L (38-126) U/L Total Protein 6.9 (6.3-8.3) g/dL Albumin 3.6 (3.5-5.0) g/dL Globulin 3.4 (2.2-3.9) gm/dL Albumin/Globulin Ratio 1.1 (1.0-2.1) Laboratory Results - last 24 hr 02/27/18 02/27/18 06:22 06:22 WBC 16.2 H RBC 2.76 L Hgb 8.3 L Hct 25.1 L MCV 90.9 MCH 30.0 MCHC 33.0 RDW 18.6 H Plt Count 294 MPV 7.4 Neut % (Auto) 90.0 H Lymph % (Auto) 3.4 L Russell % (Auto) 6.6 Eos % (Auto) 0.0 Baso % (Auto) 0.0 Neut # (Auto) 14.6 H Lymph # (Auto) 0.6 L Russell # (Auto) 1.1 H Eos # (Auto) 0.0 Baso # (Auto) 0.0 Neutrophils % (Manual) 87 H Band Neutrophils % 1 Lymphocytes % (Manual) 4 L Monocytes % (Manual) 8 Toxic Granulation Present Platelet Estimate Normal Polychromasia Slight Hypochromasia (manual) Slight Anisocytosis (manual) Slight Sodium 139 Potassium 3.5 L Chloride 108 H Carbon Dioxide 24 Anion Gap 11 BUN 21 H Creatinine 0.6 L Est GFR ( Amer) > 60 Est GFR (Non-Af Amer) > 60 Random Glucose 154 H Calcium 8.6 Phosphorus 2.6 Magnesium 1.9 Total Bilirubin 0.3 AST 31 ALT 49 Alkaline Phosphatase 37 L Total Protein 6.9 Albumin 3.6 Globulin 3.4 Albumin/Globulin Ratio 1.1 Fingerstick Blood Sugar Results: 186 Review of Systems - Review of Systems All systems: reviewed and no additional remarkable complaints except (no complaints) Critical Care Progress Note - Nutrition Nutrition: Nutrition Category Date Time Status Regular Diet [DIET] Diets 02/26/18 Breakfast Active Assessment/Plan (1) Myasthenia exacerbation Assessment and plan: This is a 48 y/o with PMH of malignant thymoma s/p resection and on chemo, myasthenia gravis, and history of multiple admissions for myasthenia crisis and flare requiring IVIG who presented with worsening shortness of breath, nausea, vomiting, and abdominal pain. Patient was admitted to ICU for possible myasthenia flare, which progressed to point of requiring IV steroids, IVIG, and Bipap overnight, now improving today. Plan: Neurology: -awake and alert -no justen weakness appreciated on exam, moving extremities spontaneously and on command, seen repeated holding phone up in air watching videos -no justen neurologic deficit appreciated at this time, again able to swallow medications, tolerating soft diet well, maintain aspiration precautions -Neuro following, appreciate all recs; episode yesterday most likely myasthenia crisis, IVIG and IV steroids ordered as per Neuro recs, pending reassessment today Pulm: -Myasthenia gravis (MG) exacerbation, now improving; continue Mestinon, solumedrol, IVIG -seen breathing on room air without issue, satting well, no longer on Bipap, no intubation needed -CXR notable for chronic R katharine-diaphragm elevation (vs chronic pleural effusion ), but no appreciable infiltrates elsewhere, and lack of fever and mild leukocytosis (more likely 2/2 steroids) not suggestive of infectious etiology -Will continue with Ventolin q8 prn -Aspiration precautions, Head of bed above 35 degrees -Pulm following, appreciate all recs; more likely MG exacerbation +/- vomiting, unlikely pancreatitis, off Bipap, pending possible PET scan Wednesday Cardiac: -Hemodynamically stable -On NS 100cc/hr -Maintain MAP > 65; no indication for pressor support at this time GI: -advanced to soft diet, tolerating well -not pancreatitis as per Pulm, and lipase of 868 less than 3x upper limit of normal value, so also suggests not pancreatitis -continue IVF NS @ 100cc/hr -abd US obtained, notable for hepatic steatosis, no cholelithiasis/cholecystitis -zofran prn for nausea and vomiting -protonix for GI ppx Renal: -Cr, BUN, and electrolytes within normal limits -continue to monitor and replete electrolytes as needed ID: -remains Afebrile -mild intermittent leukocytosis more likely due to steroids than infectious etiology -blood cultures x2 negative at 24 hrs, UA not suggestive of infection -no indication for antibiotics at this time Heme: -Normocytic anemia without any signs of active bleeding -Hgb downtrending (10.2 -> 9.9 -> 8.7), likely some hemoconcentration prior to presentation due to repeated emesis, now diluted due to PO intake resumed and IVF, will continue to monitor -no indications for transfusion at this time -Lovenox for DVT ppx Endo: -hyperglycemia likely due to steroid -continue insulin sliding scale low dose, and fingersticks achs. Dispo: ICU, improving MG flare/crisis, satting well on room air, still receiving IVIG; pending results of workup ordered by Neuro, remains in ICU for close observation while receiving MG tx FEN: advanced to soft diet, NS 100cc/hr Access: Peripheral IVs Consults: Neuro, ICU, Pulm Ppx: Lovenox for DVT, Protonix for GI Patient appears clinically stable, can consider discharging home, will discuss with PMD. Continue Mestinon and steroids. Critical Care time 35 minutes Current Visit: Yes Status: Acute Priority: High Onset Date: ~11/09/17
[2018-02-27] MEDS: IMMUNE GLOBULIN 50 MG/ML IV SCH (20:15)
[2018-02-27 20:57] VITALS: O2SAT 100
[2018-02-27] MEDS: PYRIDOSTIGMINE 180 MG PO SCH (22:35)
[2018-02-28] MEDS: Sodium Chloride 0.9% 1,000 ML IV SCH (00:15)
[2018-02-28 06:33] LABS: HEMOGLOBIN 8.5 g/dL (11.0-16.0); LYMPH # 0.6 K/uL (1.0-4.3); LYMPH % 5.2 % (20.0-40.0); MEAN CELL VOLUME 90.8 fL (81.0-99.0); MEAN CORPUSCULAR HEMOGLOBIN 30.1 pg (27.0-31.0); MEAN CORPUSCULAR HGB CONC 33.2 g/dL (33.0-37.0); MEAN PLATELET VOLUME 7.4 fL (7.2-11.7); MONO # 0.9 K/uL (0.0-0.8); MONO % 7.7 % (0.0-10.0); NEUT # 9.9 K/uL (1.8-7.0); NEUT % 87.1 % (50.0-75.0); NRBC % 0.1 % (0.0-2.0); PLATELET COUNT 291 K/uL (130-400); RBC 2.83 Mil/uL (3.80-5.20); RED CELL DISTRIBUTION WIDTH 18.3 % (11.5-14.5); WHITE BLOOD COUNT 11.3 K/uL (4.8-10.8)
[2018-02-28 06:43] LABS: ALB/GLOB RATIO 0.9 (1.0-2.1); ALBUMIN 3.4 g/dL (3.5-5.0); ALT/SGPT 66 U/L (9-52); AST/SGOT 47 U/L (14-36); BLOOD UREA NITROGEN 17 mg/dL (7-17); GFR AFRICAN-AMERICAN > 60; GFR NON-AFRICAN AMERICAN > 60
--- NOTE | 2018-02-28 06:55 | CON ---
Copied To: Solomon Tellez MD Attending MD: Solomon Tellez MD DATE: 02/26/2018 ATTENDING PHYSICIAN: Niles Ledezma MD HISTORY OF PRESENT ILLNESS: The patient is a 48-year-old lady with past medical history of myasthenia gravis, diagnosed this year; thymectomy four months ago, status post chemotherapy, and on maintenance IVIG five sessions since the diagnosis. Recently, the patient was admitted to [facility] a few weeks ago for exacerbation and was given plasmapheresis, and then after the patient went home. The patient had a chemotherapy three weeks ago. The patient was complaining of perioral numbness and tingling. The patient was not feeling well for the last few days with shortness of breath and generalized weakness, double vision, difficulty ambulating because of the weakness, and the patient was admitted for exacerbation. The patient has been on prednisone 60 mg daily and IVIG maintenance multi doses. The patient was in severe distress yesterday, and at last she was started on IVIG. Intubation was basically not needed. The patient is awake, alert, oriented x3, gave me a good detailed history. PAST MEDICAL HISTORY: As mentioned above. SOCIAL HISTORY: No smoking, ethanol, or drug abuser. ALLERGIES: ALLERGIC TO CEPHALEXIN, CODEINE, IODINE. MEDICATIONS: Prednisone, IVIG, pyridostigmine, enoxaparin, albuterol, pantoprazole, insulin, , and Zofran. PHYSICAL EXAMINATION: VITAL SIGNS: Blood pressure 136/69, pulse 76, respirations 25, temperature afebrile. MENTAL STATUS: The patient is alert, awake, and oriented x3. Normal naming, repetition, and comprehension. CRANIAL NERVES: Pupils symmetrical, reactive. Positive double vision, vertical more than horizontal gaze. Very minimal ptosis and gazing fatigue and ptosis get worse. In addition, the patient has double vision, vertical more than horizontal. There is a weakness of facial muscles as well. Neck flexion, extension, rotation 4/5. No facial asymmetry. V1 to V3 intact. Motor, normal tone in upper and lower extremities. Upper extremities overall 4 to 4+/5 slightly proximal and distal. Lower extremities, bilateral flexion 4 to 4+/5 distally and proximally. Deep tendon reflexes 1 in upper extremities, absent in bilateral lower extremities. Plantar flexion. LABORATORY DATA: Labs reviewed. IMPRESSION: exacerbation, status post first-dose intravenous immunoglobulin. The patient had plasmapheresis a few weeks ago, five sessions at [facility]. The patient is currently on Solu-Medrol. The patient is currently getting chemotherapy for her thymoma. After chemotherapy, the patient might be a candidate for CellCept or Imuran, other option is Rituxan and tapering of her prednisone over a period of time. Neuro suero, at this point, the patient is more stable than yesterday. No intubation needed. Thank you for the consultation. Dr. Branch will follow up the patient on Wednesday. Solomon Tellez MD
[2018-02-28] MEDS: (Novolog) Insulin Aspart, Recombinant 100 u/ml 10 ml vial SC SCH ×3 (07:30→16:30)
[2018-02-28] MEDS ORDERED: Potassium Chloride 20 mEq ER Tab PO ONE (08:00)
[2018-02-28 08:01] LABS: ANISOCYTOSIS MODERATE; BANDS 2 % (0-2); LYMPHOCYTE 7 % (20-40); MONOCYTE 8 % (0-10); MYELOCYTE 1 % (0-0); NEUTROPHIL 81 % (50-75); REACTIVE LYMPHOCYTES 1 % (0-0); TOTAL CELLS COUNTED 100
--- NOTE | 2018-02-28 08:03 | CARD ---
APPROVED REPORT Date of service: 02/25/2018 EKG Measurement Heart [id number] <Conclusion> Sinus rhythm with 1st degree AV block Otherwise normal ECG
[2018-02-28 08:08] LABS: PLATELET ESTIMATE NORMAL (NORMAL)
--- NOTE | 2018-02-28 08:22 | CP.CCUPN ---
<Leonor Lemus - Last Filed: 02/28/18 11:26> CCU Subjective - Physician Review Events Since Last Encounter (Free Text): PGY-3 ICU progress note 02/28/18 08:24 No acute overnight events. Patient states she's feeling much better and wants to go home. No cp, no sob, fever or chills. Admits to generalized weakness, but no focal weakness at this time. Critical Care Time Spent (in minutes): 45 CCU Objective - Vital Signs / Intake & Output Vital Signs (Last 4 hours): Vital Signs Pulse Resp BP Pulse Ox 02/28/18 07:01 168/84 H 02/28/18 07:00 42 L 23 100 02/28/18 06:01 52 L 24 135/72 02/28/18 05:01 56 L 24 133/71 100 Intake and Output (Last 8hrs): Intake & Output 02/27/18 02/28/18 02/28/18 22:59 06:59 14:59 Intake Total 735.2 939 0 Output Total 850 500 Balance -114.8 439 0 Weight 156 lb Intake: Intake, IV Amount 615.2 459 0 Right Chest Port-a-Cath 615.2 459 0 Oral 120 480 Output: Urine 850 500 Urine, Voided 850 500 Other: # Bowel Movements 2 1 - Physical Exam Head: Positive for: Atraumatic, Normocephalic. Negative for: Abrasion, Laceration Pupils: Negative for: Pinpoint Extroacular Muscles: Positive for: EOMI. Negative for: Gaze Palsy Conjunctiva: Positive for: Normal. Negative for: Injected, Icteric Mouth: Positive for: Moist Mucous Membranes. Negative for: Dry, Drooling Pharnyx: Positive for: Normal. Negative for: ERYTHEMA, EXUDATE Nose (External): Positive for: Atraumatic. Negative for: Abrasion, Contusion, Laceration Nose (Internal): Positive for: Normal Inspection, No Active Bleeding. Negative for: Epistaxis Neck: Positive for: Normal Range of Motion, Trachea Midline. Negative for: Meningeal Signs, MIDLINE TENDERNESS, Paraspinal Tenderness, JVD, Lymphadenopathy , Bruit Respiratory/Chest: Positive for: Clear to Auscultation, Good Air Exchange, Other (healed midline surgical scar along chest without erythema/edema/ fluctuance/tenderness). Negative for: Respiratory Distress, Accessory Muscle Use, Wheezes, Decreased Breath Sounds, Rales, Retracting, Rhonchi, Tachypneic Cardiovascular: Positive for: Regular Rate and Rhythm, Normal S1, S2, Peripheal Pulses Present. Negative for: Murmurs, Irregular Rhythm, Tachycardic, Bradycardic Abdomen: Positive for: Normal Bowel Sounds. Negative for: Tenderness, Distention, Guarding, Feeding Tubes Upper Extremity: Positive for: Normal Inspection, NORMAL PULSES. Negative for: Cyanosis, Edema, Tenderness, Swelling, Erythema Lower Extremity: Positive for: Normal Inspection, NORMAL PULSES, Normal ROM, Neurovascularly Intact (reports intermittent sensation of numbness/pins and needles sensation, but not present at time of exam). Negative for: Edema, CALF TENDERNESS, Cyanosis Neurological: Positive for: GCS=15, Speech Normal, Motor Func Grossly Intact, Normal Sensory Function Skin: Positive for: Warm, Dry, Rashes, Normal Color Psychiatric: Positive for: Alert, Oriented x 3, Normal Insight, Normal Concentration - Medications Active Medications: Active Medications Generic Name Dose Route Start Last Admin Trade Name Freq PRN Reason Stop Dose Admin Albuterol Sulfate 2.5 mg 02/25/18 21:54 02/26/18 15:32 Albuterol 0.083% Inhal Myrtle (2.5 Mg/3 Ml) Ud INH 2.5 mg RQ8 PRN Administration Wheezing Enoxaparin Sodium 40 mg 02/25/18 10:00 02/27/18 09:09 Lovenox SC 40 mg DAILY DIONICIO Administration Immune Globulin 520 mls @ 0 mls/hr 02/26/18 21:00 02/27/18 20:15 Octagam 5% IV 03/01/18 21:01 38.4 mls/hr Q24H DIONICIO Administration UD Insulin Aspart 0 unit 02/25/18 11:30 02/27/18 22:00 Novolog SC Not Given ACHS DIONICIO Protocol Methylprednisolone 60 mg 02/25/18 06:00 02/28/18 05:00 Solu-Medrol IV 60 mg Q8 DIONICIO Administration Ondansetron HCl 4 mg 02/25/18 07:52 Zofran Inj IVP Q4 PRN Nausea/Vomiting Pantoprazole Sodium 40 mg 02/25/18 10:00 02/27/18 09:09 Protonix Inj IVP 40 mg DAILY DIONICIO Administration Pyridostigmine Rawlins 60 mg 02/26/18 05:00 02/28/18 05:00 Mestinon Tab PO 60 mg 0500,1100,1700 DIONICIO Administration Pyridostigmine Rawlins 180 mg 02/25/18 23:00 02/27/18 22:35 Mestinon Timespan Tab PO 180 mg Q24H DIONICIO Administration - Patient Studies Lab Studies: Microbiology Studies 02/25/18 01:00 Blood Culture - Preliminary Blood-Thru Central Line NO GROWTH AFTER 3 DAYS 02/25/18 00:30 Blood Culture - Preliminary Blood-Thru Central Line NO GROWTH AFTER 3 DAYS Lab Studies 02/28/18 02/28/18 02/27/18 Range/Units 06:20 06:20 06:22 WBC 11.3 H (4.8-10.8) K/uL RBC 2.83 L (3.80-5.20) Mil/uL Hgb 8.5 L (11.0-16.0) g/dL Hct 25.7 L (34.0-47.0) % MCV 90.8 (81.0-99.0) fL MCH 30.1 (27.0-31.0) pg MCHC 33.2 (33.0-37.0) g/dL RDW 18.3 H (11.5-14.5) % Plt Count 291 (130-400) K/uL MPV 7.4 (7.2-11.7) fL Neut % (Auto) 87.1 H (50.0-75.0) % Lymph % (Auto) 5.2 L (20.0-40.0) % Keith % (Auto) 7.7 (0.0-10.0) % Eos % (Auto) 0.0 (0.0-4.0) % Baso % (Auto) 0.0 (0.0-2.0) % Neut # (Auto) 9.9 H (1.8-7.0) K/uL Lymph # (Auto) 0.6 L (1.0-4.3) K/uL Keith # (Auto) 0.9 H (0.0-0.8) K/uL Eos # (Auto) 0.0 (0.0-0.7) K/uL Baso # (Auto) 0.0 (0.0-0.2) K/uL Neutrophils % (Manual) 81 H 87 H (50-75) % Band Neutrophils % 2 1 (0-2) % Lymphocytes % (Manual) 7 L 4 L (20-40) % Reactive Lymphs % 1 H (0-0) % Monocytes % (Manual) 8 8 (0-10) % Myelocytes % 1 H (0-0) % Toxic Granulation Present Platelet Estimate Normal Normal (NORMAL) Polychromasia Slight Hypochromasia (manual) Slight Basophilic Stippling Slight Anisocytosis (manual) Moderate Slight Sodium 141 (132-148) mmol/L Potassium 3.4 L (3.6-5.2) mmol/L Chloride 107 (98-107) mmol/L Carbon Dioxide 27 (22-30) mmol/L Anion Gap 10 (10-20) BUN 17 (7-17) mg/dL Creatinine 0.6 L (0.7-1.2) mg/dL Est GFR ( Amer) > 60 Est GFR (Non-Af Amer) > 60 Random Glucose 150 H (65-105) mg/dL Calcium 9.0 (8.6-10.4) mg/dl Phosphorus 3.7 (2.5-4.5) mg/dL Magnesium 2.0 (1.6-2.3) mg/dL Total Bilirubin 0.4 (0.2-1.3) mg/dL AST 47 H D (14-36) U/L ALT 66 H D (9-52) U/L Alkaline Phosphatase 43 (38-126) U/L Total Protein 7.3 (6.3-8.3) g/dL Albumin 3.4 L (3.5-5.0) g/dL Globulin 3.8 (2.2-3.9) gm/dL Albumin/Globulin Ratio 0.9 L (1.0-2.1) Laboratory Results - last 24 hr 02/27/18 02/28/18 02/28/18 06:22 06:20 06:20 WBC 11.3 H RBC 2.83 L Hgb 8.5 L Hct 25.7 L MCV 90.8 MCH 30.1 MCHC 33.2 RDW 18.3 H Plt Count 291 MPV 7.4 Neut % (Auto) 87.1 H Lymph % (Auto) 5.2 L Keith % (Auto) 7.7 Eos % (Auto) 0.0 Baso % (Auto) 0.0 Neut # (Auto) 9.9 H Lymph # (Auto) 0.6 L Keith # (Auto) 0.9 H Eos # (Auto) 0.0 Baso # (Auto) 0.0 Neutrophils % (Manual) 87 H 81 H Band Neutrophils % 1 2 Lymphocytes % (Manual) 4 L 7 L Reactive Lymphs % 1 H Monocytes % (Manual) 8 8 Myelocytes % 1 H Toxic Granulation Present Platelet Estimate Normal Normal Polychromasia Slight Hypochromasia (manual) Slight Basophilic Stippling Slight Anisocytosis (manual) Slight Moderate Sodium 141 Potassium 3.4 L Chloride 107 Carbon Dioxide 27 Anion Gap 10 BUN 17 Creatinine 0.6 L Est GFR ( Amer) > 60 Est GFR (Non-Af Amer) > 60 Random Glucose 150 H Calcium 9.0 Phosphorus 3.7 Magnesium 2.0 Total Bilirubin 0.4 AST 47 H D ALT 66 H D Alkaline Phosphatase 43 Total Protein 7.3 Albumin 3.4 L Globulin 3.8 Albumin/Globulin Ratio 0.9 L Fingerstick Blood Sugar Results: 161 Results Reviewed to Date: Yes Review of Systems - Review of Systems All systems: reviewed and no additional remarkable complaints except Critical Care Progress Note - Ventilator Checklist Head of Bed 30 Degrees: Yes - Prophylaxis GI Prophylaxis GI: PPI - Prophylaxis DVT Prophylaxis DVT: Lovenox - Nutrition Nutrition: Nutrition Category Date Time Status Regular Diet [DIET] Diets 02/26/18 Breakfast Active Assessment/Plan - Assessment and Plan (Free Text) Assessment: Patient is a 48 y/o with PMH of malignant thymoma s/p resection, on chemo, myasthenia gravis, history of multiple admissions for myasthenia crisis and flare, recent admission and discharge from [facility] where patient was intubated and was giving plasmapheresis, history IVIG presenting with worsening in shortness of breath along with nausea, vomiting and abdominal pain. Patient was admitted to ICU for possible myasthenia flare. Patient is currently on solumedrol tapering dose, mestinon and IVIG. The respiratory distress managed with bipap. Patient is currently comfortable with 2 litters nasal cannula. Plan: Neurology: -Mental status at baseline -no justen weakness appreciated on exam, moving extremities spontaneously and on command, able to hold her phone. -Neuro following, will continue with IVIG ( last dose today), IV steroids tapering dose and mestinon. Pulm: Myasthenia gravis (MG) exacerbation- improved - Will continue with Mestinon, solumedrol, IVIG - Saturing well on room air, no respiratory distress noted - Continue with Ventolin q8 prn - Aspiration precautions, Head of bed above 35 degrees - Pulm following, appreciate all recs; more likely MG exacerbation +/- vomiting , unlikely pancreatitis, off Bipap, pending possible PET scan Wednesday Cardiac: -Hemodynamically stable - Maintain MAP > 65 GI: Tolerating soft diet -Nausea and vomiting resolved. -Abd US revealed hepatic steatosis, no cholelithiasis/cholecystitis -Continue zofran prn for nausea and vomiting -protonix for GI ppx Renal: -Hypokalemia- will replete -No signs of renal failure ID: -remains Afebrile -mild intermittent leukocytosis more likely due to steroids than infectious etiology -blood cultures x2 negative -no indication for antibiotics at this time Heme: -Normocytic anemia without any signs of active bleeding -Hgb stable around 8 -no indications for transfusion at this time -Lovenox for DVT ppx Endo: -hyperglycemia likely due to steroid -continue insulin sliding scale low dose, and fingersticks achs. Dispo: patient likely to be discharged to follow up with [facility] for PET scan tomorrow if remains stable. Discussed with the attending. Leonor Lemus, PGY-3 IM - Date & Time Date: 02/28/18 Time: 08:35 <Niles Ledezma - Last Filed: 02/28/18 16:49> CCU Objective - Vital Signs / Intake & Output Vital Signs (Last 4 hours): Vital Signs Temp Pulse Resp BP Pulse Ox 02/28/18 16:16 52 L 02/28/18 16:00 97.9 F 62 20 155/65 H 100 02/28/18 14:01 46 L 22 157/72 H 02/28/18 14:00 49 L 23 02/28/18 13:26 50 L 11 L 140/92 H 02/28/18 13:00 52 L 26 H Intake and Output (Last 8hrs): Intake & Output 02/28/18 02/28/18 02/28/18 06:59 14:59 22:59 Intake Total 939 900 0 Output Total 500 Balance 439 900 0 Weight 156 lb Intake: Intake, IV Amount 459 0 Right Chest Port-a-Cath 459 0 Oral 480 900 0 Output: Urine 500 Urine, Voided 500 Other: # Bowel Movements 1 - Medications Active Medications: Active Medications Generic Name Dose Route Start Last Admin Trade Name Freq PRN Reason Stop Dose Admin Albuterol Sulfate 2.5 mg 02/25/18 21:54 02/26/18 15:32 Albuterol 0.083% Inhal Myrtle (2.5 Mg/3 Ml) Ud INH 2.5 mg RQ8 PRN Administration Wheezing Enoxaparin Sodium 40 mg 02/25/18 10:00 02/28/18 09:28 Lovenox SC 40 mg DAILY DIONICIO Administration Immune Globulin 520 mls @ 0 mls/hr 02/26/18 21:00 02/27/18 20:15 Octagam 5% IV 03/01/18 21:01 38.4 mls/hr Q24H DIONICIO Administration UD Insulin Aspart 0 unit 02/25/18 11:30 02/28/18 11:30 Novolog SC Not Given ACHS DIONICIO Protocol Methylprednisolone 40 mg 02/28/18 09:11 02/28/18 13:32 Solu-Medrol IV 40 mg Q8 DIONICIO Administration Ondansetron HCl 4 mg 02/25/18 07:52 Zofran Inj IVP Q4 PRN Nausea/Vomiting Pantoprazole Sodium 40 mg 02/25/18 10:00 02/28/18 09:29 Protonix Inj IVP 40 mg DAILY DIONICIO Administration Pyridostigmine Rawlins 60 mg 02/26/18 05:00 02/28/18 16:20 Mestinon Tab PO 60 mg 0500,1100,1700 DIONICIO Administration Pyridostigmine Rawlins 180 mg 02/25/18 23:00 02/27/18 22:35 Mestinon Timespan Tab PO 180 mg Q24H DIONICIO Administration - Patient Studies Lab Studies: Microbiology Studies 02/25/18 01:00 Blood Culture - Preliminary Blood-Thru Central Line NO GROWTH AFTER 3 DAYS 02/25/18 00:30 Blood Culture - Preliminary Blood-Thru Central Line NO GROWTH AFTER 3 DAYS Lab Studies 02/28/18 02/28/18 02/28/18 Range/Units 16:01 12:04 07:26 WBC (4.8-10.8) K/uL RBC (3.80-5.20) Mil/uL Hgb (11.0-16.0) g/dL Hct (34.0-47.0) % MCV (81.0-99.0) fL MCH (27.0-31.0) pg MCHC (33.0-37.0) g/dL RDW (11.5-14.5) % Plt Count (130-400) K/uL MPV (7.2-11.7) fL Neut % (Auto) (50.0-75.0) % Lymph % (Auto) (20.0-40.0) % Keith % (Auto) (0.0-10.0) % Eos % (Auto) (0.0-4.0) % Baso % (Auto) (0.0-2.0) % Neut # (Auto) (1.8-7.0) K/uL Lymph # (Auto) (1.0-4.3) K/uL Keith # (Auto) (0.0-0.8) K/uL Eos # (Auto) (0.0-0.7) K/uL Baso # (Auto) (0.0-0.2) K/uL Neutrophils % (Manual) (50-75) % Band Neutrophils % (0-2) % Lymphocytes % (Manual) (20-40) % Reactive Lymphs % (0-0) % Monocytes % (Manual) (0-10) % Myelocytes % (0-0) % Platelet Estimate (NORMAL) Basophilic Stippling Anisocytosis (manual) Sodium (132-148) mmol/L Potassium (3.6-5.2) mmol/L Chloride (98-107) mmol/L Carbon Dioxide (22-30) mmol/L Anion Gap (10-20) BUN (7-17) mg/dL Creatinine (0.7-1.2) mg/dL Est GFR ( Amer) Est GFR (Non-Af Amer) POC Glucose (mg/dL) 121 H 142 H 119 H (65-110) mg/dL Random Glucose (65-105) mg/dL Calcium (8.6-10.4) mg/dl Phosphorus (2.5-4.5) mg/dL Magnesium (1.6-2.3) mg/dL Total Bilirubin (0.2-1.3) mg/dL AST (14-36) U/L ALT (9-52) U/L Alkaline Phosphatase (38-126) U/L Total Protein (6.3-8.3) g/dL Albumin (3.5-5.0) g/dL Globulin (2.2-3.9) gm/dL Albumin/Globulin Ratio (1.0-2.1) 02/28/18 02/28/18 02/27/18 Range/Units 06:20 06:20 21:28 WBC 11.3 H (4.8-10.8) K/uL RBC 2.83 L (3.80-5.20) Mil/uL Hgb 8.5 L (11.0-16.0) g/dL Hct 25.7 L (34.0-47.0) % MCV 90.8 (81.0-99.0) fL MCH 30.1 (27.0-31.0) pg MCHC 33.2 (33.0-37.0) g/dL RDW 18.3 H (11.5-14.5) % Plt Count 291 (130-400) K/uL MPV 7.4 (7.2-11.7) fL Neut % (Auto) 87.1 H (50.0-75.0) % Lymph % (Auto) 5.2 L (20.0-40.0) % Keith % (Auto) 7.7 (0.0-10.0) % Eos % (Auto) 0.0 (0.0-4.0) % Baso % (Auto) 0.0 (0.0-2.0) % Neut # (Auto) 9.9 H (1.8-7.0) K/uL Lymph # (Auto) 0.6 L (1.0-4.3) K/uL Keith # (Auto) 0.9 H (0.0-0.8) K/uL Eos # (Auto) 0.0 (0.0-0.7) K/uL Baso # (Auto) 0.0 (0.0-0.2) K/uL Neutrophils % (Manual) 81 H (50-75) % Band Neutrophils % 2 (0-2) % Lymphocytes % (Manual) 7 L (20-40) % Reactive Lymphs % 1 H (0-0) % Monocytes % (Manual) 8 (0-10) % Myelocytes % 1 H (0-0) % Platelet Estimate Normal (NORMAL) Basophilic Stippling Slight Anisocytosis (manual) Moderate Sodium 141 (132-148) mmol/L Potassium 3.4 L (3.6-5.2) mmol/L Chloride 107 (98-107) mmol/L Carbon Dioxide 27 (22-30) mmol/L Anion Gap 10 (10-20) BUN 17 (7-17) mg/dL Creatinine 0.6 L (0.7-1.2) mg/dL Est GFR ( Amer) > 60 Est GFR (Non-Af Amer) > 60 POC Glucose (mg/dL) 161 H (65-110) mg/dL Random Glucose 150 H (65-105) mg/dL Calcium 9.0 (8.6-10.4) mg/dl Phosphorus 3.7 (2.5-4.5) mg/dL Magnesium 2.0 (1.6-2.3) mg/dL Total Bilirubin 0.4 (0.2-1.3) mg/dL AST 47 H D (14-36) U/L ALT 66 H D (9-52) U/L Alkaline Phosphatase 43 (38-126) U/L Total Protein 7.3 (6.3-8.3) g/dL Albumin 3.4 L (3.5-5.0) g/dL Globulin 3.8 (2.2-3.9) gm/dL Albumin/Globulin Ratio 0.9 L (1.0-2.1) 02/27/18 02/27/18 02/27/18 Range/Units 16:16 11:54 07:21 WBC (4.8-10.8) K/uL RBC (3.80-5.20) Mil/uL Hgb (11.0-16.0) g/dL Hct (34.0-47.0) % MCV (81.0-99.0) fL MCH (27.0-31.0) pg MCHC (33.0-37.0) g/dL RDW (11.5-14.5) % Plt Count (130-400) K/uL MPV (7.2-11.7) fL Neut % (Auto) (50.0-75.0) % Lymph % (Auto) (20.0-40.0) % Keith % (Auto) (0.0-10.0) % Eos % (Auto) (0.0-4.0) % Baso % (Auto) (0.0-2.0) % Neut # (Auto) (1.8-7.0) K/uL Lymph # (Auto) (1.0-4.3) K/uL Keith # (Auto) (0.0-0.8) K/uL Eos # (Auto) (0.0-0.7) K/uL Baso # (Auto) (0.0-0.2) K/uL Neutrophils % (Manual) (50-75) % Band Neutrophils % (0-2) % Lymphocytes % (Manual) (20-40) % Reactive Lymphs % (0-0) % Monocytes % (Manual) (0-10) % Myelocytes % (0-0) % Platelet Estimate (NORMAL) Basophilic Stippling Anisocytosis (manual) Sodium (132-148) mmol/L Potassium (3.6-5.2) mmol/L Chloride (98-107) mmol/L Carbon Dioxide (22-30) mmol/L Anion Gap (10-20) BUN (7-17) mg/dL Creatinine (0.7-1.2) mg/dL Est GFR ( Amer) Est GFR (Non-Af Amer) POC Glucose (mg/dL) 154 H 93 170 H (65-110) mg/dL Random Glucose (65-105) mg/dL Calcium (8.6-10.4) mg/dl Phosphorus (2.5-4.5) mg/dL Magnesium (1.6-2.3) mg/dL Total Bilirubin (0.2-1.3) mg/dL AST (14-36) U/L ALT (9-52) U/L Alkaline Phosphatase (38-126) U/L Total Protein (6.3-8.3) g/dL Albumin (3.5-5.0) g/dL Globulin (2.2-3.9) gm/dL Albumin/Globulin Ratio (1.0-2.1) 02/26/18 02/26/18 02/26/18 Range/Units 21:35 16:08 11:30 WBC (4.8-10.8) K/uL RBC (3.80-5.20) Mil/uL Hgb (11.0-16.0) g/dL Hct (34.0-47.0) % MCV (81.0-99.0) fL MCH (27.0-31.0) pg MCHC (33.0-37.0) g/dL RDW (11.5-14.5) % Plt Count (130-400) K/uL MPV (7.2-11.7) fL Neut % (Auto) (50.0-75.0) % Lymph % (Auto) (20.0-40.0) % Keith % (Auto) (0.0-10.0) % Eos % (Auto) (0.0-4.0) % Baso % (Auto) (0.0-2.0) % Neut # (Auto) (1.8-7.0) K/uL Lymph # (Auto) (1.0-4.3) K/uL Keith # (Auto) (0.0-0.8) K/uL Eos # (Auto) (0.0-0.7) K/uL Baso # (Auto) (0.0-0.2) K/uL Neutrophils % (Manual) (50-75) % Band Neutrophils % (0-2) % Lymphocytes % (Manual) (20-40) % Reactive Lymphs % (0-0) % Monocytes % (Manual) (0-10) % Myelocytes % (0-0) % Platelet Estimate (NORMAL) Basophilic Stippling Anisocytosis (manual) Sodium (132-148) mmol/L Potassium (3.6-5.2) mmol/L Chloride (98-107) mmol/L Carbon Dioxide (22-30) mmol/L Anion Gap (10-20) BUN (7-17) mg/dL Creatinine (0.7-1.2) mg/dL Est GFR ( Amer) Est GFR (Non-Af Amer) POC Glucose (mg/dL) 186 H 148 H 163 H (65-110) mg/dL Random Glucose (65-105) mg/dL Calcium (8.6-10.4) mg/dl Phosphorus (2.5-4.5) mg/dL Magnesium (1.6-2.3) mg/dL Total Bilirubin (0.2-1.3) mg/dL AST (14-36) U/L ALT (9-52) U/L Alkaline Phosphatase (38-126) U/L Total Protein (6.3-8.3) g/dL Albumin (3.5-5.0) g/dL Globulin (2.2-3.9) gm/dL Albumin/Globulin Ratio (1.0-2.1) 02/26/18 02/25/18 Range/Units 07:28 21:10 WBC (4.8-10.8) K/uL RBC (3.80-5.20) Mil/uL Hgb (11.0-16.0) g/dL Hct (34.0-47.0) % MCV (81.0-99.0) fL MCH (27.0-31.0) pg MCHC (33.0-37.0) g/dL RDW (11.5-14.5) % Plt Count (130-400) K/uL MPV (7.2-11.7) fL Neut % (Auto) (50.0-75.0) % Lymph % (Auto) (20.0-40.0) % Keith % (Auto) (0.0-10.0) % Eos % (Auto) (0.0-4.0) % Baso % (Auto) (0.0-2.0) % Neut # (Auto) (1.8-7.0) K/uL Lymph # (Auto) (1.0-4.3) K/uL Keith # (Auto) (0.0-0.8) K/uL Eos # (Auto) (0.0-0.7) K/uL Baso # (Auto) (0.0-0.2) K/uL Neutrophils % (Manual) (50-75) % Band Neutrophils % (0-2) % Lymphocytes % (Manual) (20-40) % Reactive Lymphs % (0-0) % Monocytes % (Manual) (0-10) % Myelocytes % (0-0) % Platelet Estimate (NORMAL) Basophilic Stippling Anisocytosis (manual) Sodium (132-148) mmol/L Potassium (3.6-5.2) mmol/L Chloride (98-107) mmol/L Carbon Dioxide (22-30) mmol/L Anion Gap (10-20) BUN (7-17) mg/dL Creatinine (0.7-1.2) mg/dL Est GFR ( Amer) Est GFR (Non-Af Amer) POC Glucose (mg/dL) 122 H 154 H (65-110) mg/dL Random Glucose (65-105) mg/dL Calcium (8.6-10.4) mg/dl Phosphorus (2.5-4.5) mg/dL Magnesium (1.6-2.3) mg/dL Total Bilirubin (0.2-1.3) mg/dL AST (14-36) U/L ALT (9-52) U/L Alkaline Phosphatase (38-126) U/L Total Protein (6.3-8.3) g/dL Albumin (3.5-5.0) g/dL Globulin (2.2-3.9) gm/dL Albumin/Globulin Ratio (1.0-2.1) Laboratory Results - last 24 hr 02/25/18 02/26/18 02/26/18 21:10 07:28 11:30 WBC RBC Hgb Hct MCV MCH MCHC RDW Plt Count MPV Neut % (Auto) Lymph % (Auto) Keith % (Auto) Eos % (Auto) Baso % (Auto) Neut # (Auto) Lymph # (Auto) Keith # (Auto) Eos # (Auto) Baso # (Auto) Neutrophils % (Manual) Band Neutrophils % Lymphocytes % (Manual) Reactive Lymphs % Monocytes % (Manual) Myelocytes % Platelet Estimate Basophilic Stippling Anisocytosis (manual) Sodium Potassium Chloride Carbon Dioxide Anion Gap BUN Creatinine Est GFR ( Amer) Est GFR (Non-Af Amer) POC Glucose (mg/dL) 154 H 122 H 163 H Random Glucose Calcium Phosphorus Magnesium Total Bilirubin AST ALT Alkaline Phosphatase Total Protein Albumin Globulin Albumin/Globulin Ratio 02/26/18 02/26/18 02/27/18 16:08 21:35 07:21 WBC RBC Hgb Hct MCV MCH MCHC RDW Plt Count MPV Neut % (Auto) Lymph % (Auto) Keith % (Auto) Eos % (Auto) Baso % (Auto) Neut # (Auto) Lymph # (Auto) Keith # (Auto) Eos # (Auto) Baso # (Auto) Neutrophils % (Manual) Band Neutrophils % Lymphocytes % (Manual) Reactive Lymphs % Monocytes % (Manual) Myelocytes % Platelet Estimate Basophilic Stippling Anisocytosis (manual) Sodium Potassium Chloride Carbon Dioxide Anion Gap BUN Creatinine Est GFR ( Amer) Est GFR (Non-Af Amer) POC Glucose (mg/dL) 148 H 186 H 170 H Random Glucose Calcium Phosphorus Magnesium Total Bilirubin AST ALT Alkaline Phosphatase Total Protein Albumin Globulin Albumin/Globulin Ratio 02/27/18 02/27/18 02/27/18 11:54 16:16 21:28 WBC RBC Hgb Hct MCV MCH MCHC RDW Plt Count MPV Neut % (Auto) Lymph % (Auto) Keith % (Auto) Eos % (Auto) Baso % (Auto) Neut # (Auto) Lymph # (Auto) Keith # (Auto) Eos # (Auto) Baso # (Auto) Neutrophils % (Manual) Band Neutrophils % Lymphocytes % (Manual) Reactive Lymphs % Monocytes % (Manual) Myelocytes % Platelet Estimate Basophilic Stippling Anisocytosis (manual) Sodium Potassium Chloride Carbon Dioxide Anion Gap BUN Creatinine Est GFR ( Amer) Est GFR (Non-Af Amer) POC Glucose (mg/dL) 93 154 H 161 H Random Glucose Calcium Phosphorus Magnesium Total Bilirubin AST ALT Alkaline Phosphatase Total Protein Albumin Globulin Albumin/Globulin Ratio 02/28/18 02/28/18 02/28/18 06:20 06:20 07:26 WBC 11.3 H RBC 2.83 L Hgb 8.5 L Hct 25.7 L MCV 90.8 MCH 30.1 MCHC 33.2 RDW 18.3 H Plt Count 291 MPV 7.4 Neut % (Auto) 87.1 H Lymph % (Auto) 5.2 L Keith % (Auto) 7.7 Eos % (Auto) 0.0 Baso % (Auto) 0.0 Neut # (Auto) 9.9 H Lymph # (Auto) 0.6 L Keith # (Auto) 0.9 H Eos # (Auto) 0.0 Baso # (Auto) 0.0 Neutrophils % (Manual) 81 H Band Neutrophils % 2 Lymphocytes % (Manual) 7 L Reactive Lymphs % 1 H Monocytes % (Manual) 8 Myelocytes % 1 H Platelet Estimate Normal Basophilic Stippling Slight Anisocytosis (manual) Moderate Sodium 141 Potassium 3.4 L Chloride 107 Carbon Dioxide 27 Anion Gap 10 BUN 17 Creatinine 0.6 L Est GFR ( Amer) > 60 Est GFR (Non-Af Amer) > 60 POC Glucose (mg/dL) 119 H Random Glucose 150 H Calcium 9.0 Phosphorus 3.7 Magnesium 2.0 Total Bilirubin 0.4 AST 47 H D ALT 66 H D Alkaline Phosphatase 43 Total Protein 7.3 Albumin 3.4 L Globulin 3.8 Albumin/Globulin Ratio 0.9 L 02/28/18 02/28/18 12:04 16:01 WBC RBC Hgb Hct MCV MCH MCHC RDW Plt Count MPV Neut % (Auto) Lymph % (Auto) Keith % (Auto) Eos % (Auto) Baso % (Auto) Neut # (Auto) Lymph # (Auto) Keith # (Auto) Eos # (Auto) Baso # (Auto) Neutrophils % (Manual) Band Neutrophils % Lymphocytes % (Manual) Reactive Lymphs % Monocytes % (Manual) Myelocytes % Platelet Estimate Basophilic Stippling Anisocytosis (manual) Sodium Potassium Chloride Carbon Dioxide Anion Gap BUN Creatinine Est GFR ( Amer) Est GFR (Non-Af Amer) POC Glucose (mg/dL) 142 H 121 H Random Glucose Calcium Phosphorus Magnesium Total Bilirubin AST ALT Alkaline Phosphatase Total Protein Albumin Globulin Albumin/Globulin Ratio Critical Care Progress Note - Nutrition Nutrition: Nutrition Category Date Time Status Regular Diet [DIET] Diets 02/26/18 Breakfast Active Attending/Attestation - Attestation I have personally seen and examined this patient.: Yes I have fully participated in the care of the patient.: Yes I have reviewed all pertinent clinical information: Yes Notes (Text): 02/28/18 16:49 Patient overnight had a -2 episodes of shortness of breath, as well as weakness. Patient was placed on BiPAP. Today morning patient is feeling better. Patient is able to stand up and walk a few steps. Patient is able to eat well. Patient received 4 doses of IV IgG. Patient scheduled have a PET scan tomorrow. Clinically stable. If she is good we'll discharge her today. She will follow-up with the neurologist. Oncologist. And PET scan tomorrow. Patient has at home oxygen, BiPAP, as well as medications. She is aware of her condition. She was given all the instruction about the myasthenia gravis. Will follow the patient
[2018-02-28] MEDS: Enoxaparin 40 mg Syringe SC SCH (09:28)
--- NOTE | 2018-02-28 11:55 | PN ---
Copied To: Sam Branch MD Attending MD: Sam Branch MD DATE: 02/28/2018 NEUROLOGICAL PROBLEM: Exacerbation of myasthenia gravis. Events being discussed with the nurse. She had episode of abrupt onset of lethargicness three hours after the Mestinon. This happened only in the evening time. Daytime, she was doing good and tolerating well. At times, she has loose bowel movements. The patient was stable during the daytime. Similar episodes did happen in the past as well. These episodes happened with no warning. No loss of consciousness. PHYSICAL EXAMINATION: GENERAL: Seems to be back to her baseline. Awake, alert, and oriented to person, place, and time. VITAL SIGNS: Blood pressure 135/72, mean arterial pressure of 91, respiratory rate 20 to 24 at times, pulse rate is 52. HEENT: Extraocular movement normal. No paresis of the extraocular movement. No ptosis. Bulbar functions are normal. She could able to tolerate the food. NEUROLOGIC: Motor strength seems to be intact. EXTREMITIES: Deep tendon reflexes 1+ on either side. ASSESSMENT AND PLAN: The patient is recovering from her crisis from myasthenia. The patient is scheduled to have intravenous immunoglobulin as per the schedule. The patient is on Mestinon and steroids. The patient is also getting chemotherapy as per the small products ii assembler/oncologist. Continue the present management. The patient should be benefited of having electroencephalogram of abrupt onset of change in mental status as well as increasing lethargicness. We will continue present management. I will follow her closely with you. Sam Branch MD
[2018-02-28 20:39] VITALS: BP 141/99; PULSE 55; RESP 13
[2018-02-28 20:40] VITALS: TEMP 97.9
== END 2018-02-28 20:45 | disposition home or self-care (01) | DRG 12 ==
LOC: SUPCPDRO 00:23 → C.ER 00:23 → C.9I 01:53
PROVIDERS: ADMIT Internal Medicine; ATTEND Internal Medicine
DX: G70.01 Myasthenia gravis with (acute) exacerbation (principal); J45.909 Unspecified asthma, uncomplicated; Z92.21 Personal history of antineoplastic chemotherapy; D15.0 Benign neoplasm of thymus